=== PATIENT | male | born 1935 | race Caucasian/White ===

== ENCOUNTER 2018-12-21 13:50 | Inpatient (IN) | payer MEDICARE ==
[~2018-12-21] VITALS: Ht 167.6 cm; Wt 70.1 kg
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
[2018-12-21 14:34] LABS: BASO # 0.1 x10^3/uL (0.0-0.2); BASO % 1 % (0-3); EOS # 0.1 x10^3/uL (0.0-0.7); EOS % 1 % (0-3); HEMATOCRIT 37.8 % (39.0-53.0); HEMOGLOBIN 12.4 g/dL (13.0-17.5); LYMPH # 1.4 x10^3/uL (1.0-4.8); LYMPH % 12 % (24-48); MEAN CORPUSCULAR HEMOGLOBIN 34 pg (25-35); MEAN CORPUSCULAR HGB CONC 33 g/dL (31-37); MEAN CORPUSCULAR VOLUME 102 fL (79-100); MONO # 0.8 x10^3/uL (0.0-1.1); MONO % 7 % (0-9); NEUT # 9.1 x10^3uL (1.8-7.7); NEUT % 80 % (31-73); PLATELET COUNT 295 x10^3/uL (140-400); RED CELL DISTRIBUTION WIDTH 14.1 % (11.5-14.5); WHITE BLOOD COUNT 11.4 x10^3/uL (4.0-11.0)
[2018-12-21 14:37] LABS: AMPHETAMINE/METHAMPHETAMINE NEG (NEG); BARBITURATES NEG (NEG); BENZODIAZEPINES NEG (NEG); CANNABINOIDS NEG (NEG); COCAINE NEG (NEG); METHADONE NEG (NEG); OPIATES NEG (NEG); PHENCYCLIDINE NEG (NEG)
[2018-12-21 14:38] LABS: BACTERIA,URINE 0 /HPF (0-FEW); BILIRUBIN,URINE NEG (NEG); CLARITY,URINE CLEAR; COLOR,URINE YELLOW; GLUCOSE,URINE NEG (NEG); NITRITE,URINE NEG (NEG); RBC,URINE 0 /HPF (0-2); SQUAMOUS EPITHELIAL CELL,UR OCC /LPF; UROBILINOGEN,URINE 0.2 mg/dL (0.2 mg/dL); WBC,URINE 0 /HPF (0-4)
[2018-12-21 14:40] LABS: ACETAMIN < 2.0 mcg/mL (10-30); SALIC 0.4 mg/dL (2.8-20.0)
[2018-12-21 14:41] LABS: ETHANOL < 10 mg/dL (0-10)
[2018-12-21 14:43] LABS: ALBUMIN 2.7 g/dL (3.4-5.0); CALCIUM 8.3 mg/dL (8.5-10.1); CREATININE 1.3 mg/dL (0.7-1.3); DIRECT BILIRUBIN 0.1 mg/dL (0.0-0.2); GFR 52.7; POTASSIUM 3.7 mmol/L (3.5-5.1); TOTAL BILIRUBIN 0.3 mg/dL (0.2-1.0); TOTAL PROTEIN 5.8 g/dL (6.4-8.2)
--- NOTE | 2018-12-21 22:27 | PDOC ---
Exam Note: Arjun Note: Please also refer to the separate dictated note~for this date of service dictated separately. Discussed the patient with Nursing staff reviewed the chart.~Reviewed interim history and current functioning. Reviewed vital signs,~Labs/ Radiology~and current medications noted below. Continue current treatment with the changes noted in the dictated addendum note Assessment: Vital Signs/I&O: Vital Signs Date Time Temp Pulse Resp B/P (MAP) Pulse Ox O2 Delivery O2 Flow Rate FiO2 12/21/18 17:05 98.2 70 18 117/47 (70) 95 Room Air Labs: Laboratory Tests Test 12/21/18 14:12 12/21/18 14:15 White Blood Count 11.4 x10^3/uL (4.0-11.0) H Red Blood Count 3.70 x10^6/uL (4.30-5.70) L Hemoglobin 12.4 g/dL (13.0-17.5) L Hematocrit 37.8 % (39.0-53.0) L Mean Corpuscular Volume 102 fL (79-100) H Mean Corpuscular Hemoglobin 34 pg (25-35) Mean Corpuscular Hemoglobin Concent 33 g/dL (31-37) Red Cell Distribution Width 14.1 % (11.5-14.5) Platelet Count 295 x10^3/uL (140-400) Neutrophils (%) (Auto) 80 % (31-73) H Lymphocytes (%) (Auto) 12 % (24-48) L Monocytes (%) (Auto) 7 % (0-9) Eosinophils (%) (Auto) 1 % (0-3) Basophils (%) (Auto) 1 % (0-3) Neutrophils # (Auto) 9.1 x10^3uL (1.8-7.7) H Lymphocytes # (Auto) 1.4 x10^3/uL (1.0-4.8) Monocytes # (Auto) 0.8 x10^3/uL (0.0-1.1) Eosinophils # (Auto) 0.1 x10^3/uL (0.0-0.7) Basophils # (Auto) 0.1 x10^3/uL (0.0-0.2) Sodium Level 144 mmol/L (136-145) Potassium Level 3.7 mmol/L (3.5-5.1) Chloride Level 110 mmol/L (98-107) H Carbon Dioxide Level 26 mmol/L (21-32) Anion Gap 8 (6-14) Blood Urea Nitrogen 17 mg/dL (8-26) Creatinine 1.3 mg/dL (0.7-1.3) Estimated GFR (Cockcroft-Gault) 52.7 Glucose Level 164 mg/dL (70-99) H Calcium Level 8.3 mg/dL (8.5-10.1) L Magnesium Level 1.9 mg/dL (1.8-2.4) Total Bilirubin 0.3 mg/dL (0.2-1.0) Direct Bilirubin 0.1 mg/dL (0.0-0.2) Aspartate Amino Transferase (AST) 16 U/L (15-37) Alanine Aminotransferase (ALT) 22 U/L (16-63) Alkaline Phosphatase 66 U/L (46-116) Total Protein 5.8 g/dL (6.4-8.2) L Albumin 2.7 g/dL (3.4-5.0) L Salicylates Level 0.4 mg/dL (2.8-20.0) L Salicylate Last Dose Date Unk Salicylate Last Dose Time Unk Acetaminophen Level < 2.0 mcg/mL (10-30) L Acetaminophen Last Dose Date Unk Acetaminophen Last Dose Time Unk Ethyl Alcohol Level < 10 mg/dL (0-10) Urine Collection Type Unknown Urine Color Yellow Urine Clarity Clear Urine pH 6.0 Urine Specific [place] 1.015 Urine Protein Neg (NEG-TRACE) Urine Glucose (UA) Neg mg/dL (NEG) Urine Ketones (Stick) Neg mg/dL (NEG) Urine Blood Neg (NEG) Urine Nitrite Neg (NEG) Urine Bilirubin Neg (NEG) Urine Urobilinogen Dipstick 0.2 mg/dL (0.2 mg/dL) Urine Leukocyte Esterase Neg (NEG) Urine RBC 0 /HPF (0-2) Urine WBC 0 /HPF (0-4) Urine Squamous Epithelial Cells Occ /LPF Urine Bacteria 0 /HPF (0-FEW) Urine Opiates Screen Neg (NEG) Urine Methadone Screen Neg (NEG) Urine Barbiturates Neg (NEG) Urine Phencyclidine Screen Neg (NEG) Urine Amphetamine/Methamphetamine Neg (NEG) Urine Benzodiazepines Screen Neg (NEG) Urine Cocaine Screen Neg (NEG) Urine Cannabinoids Screen Neg (NEG) Urine Ethyl Alcohol Neg (NEG) Current Medications: I have reviewed the current psychotropics carefully including drug interactions. Risk benefit ratio favors no change other than as noted in my dictated progress note. 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
[2018-12-21 23:06] VITALS: BP 122/66
[2018-12-21] MEDS ORDERED: RAME8TAB19 PO (23:55)
[2018-12-21] MEDS ORDERED: FEXO180T16 PO (23:55)
[2018-12-21] MEDS ORDERED: ATOR40TA59 PO (23:55)
[2018-12-21] MEDS ORDERED: FINA5TAB4 PO (23:55)
[2018-12-21] MEDS ORDERED: DIGO250T PO (23:55)
[2018-12-21] MEDS ORDERED: POTA20TA4 PO (23:55)
[2018-12-21] MEDS ORDERED: APIX5TAB3 PO (23:55)
[2018-12-21] MEDS ORDERED: DILT180C29 PO (23:55)
[2018-12-21] MEDS ORDERED: FURO20TA3 PO (23:55)
[2018-12-22] MEDS ORDERED: MAGNESIUM HYDROXIDE 2,400 MG/30 ML ORAL.SUSP. PO PRN
[2018-12-22] MEDS ORDERED: RAMELTEON 8 MG TABLET. PO PRN
[2018-12-22] MEDS ORDERED: METHYL SALICYLATE/MENTHOL TOPICAL OINTMENT 29GM TUBE. TP PRN
[2018-12-22] MEDS ORDERED: MAG HYDROX/AL HYDROX/SIMETH 30 ML ORAL.SUSP PO PRN
[2018-12-22 06:30] VITALS: BP 142/67
[2018-12-22 06:57] LABS: BASO # 0.1 x10^3/uL (0.0-0.2); BASO % 1 % (0-3); EOS # 0.3 x10^3/uL (0.0-0.7); EOS % 3 % (0-3); HEMATOCRIT 40.2 % (39.0-53.0); HEMOGLOBIN 13.3 g/dL (13.0-17.5); LYMPH # 1.1 x10^3/uL (1.0-4.8); LYMPH % 12 % (24-48); MEAN CORPUSCULAR HEMOGLOBIN 34 pg (25-35); MEAN CORPUSCULAR HGB CONC 33 g/dL (31-37); MEAN CORPUSCULAR VOLUME 103 fL (79-100); MONO # 0.8 x10^3/uL (0.0-1.1); MONO % 9 % (0-9); NEUT # 6.7 x10^3uL (1.8-7.7); NEUT % 75 % (31-73); PLATELET COUNT 281 x10^3/uL (140-400); RED BLOOD COUNT 3.89 x10^6/uL (4.30-5.70); RED CELL DISTRIBUTION WIDTH 14.1 % (11.5-14.5); WHITE BLOOD COUNT 8.9 x10^3/uL (4.0-11.0)
[2018-12-22 07:04] LABS: ALBUMIN 2.8 g/dL (3.4-5.0); ALBUMIN/GLOBULIN RATIO 0.8 (1.0-1.7); ALK PHOS 62 U/L (46-116); ALT (SGPT) 20 U/L (16-63); ANION GAP 5 (6-14); AST (SGOT) 16 U/L (15-37); BLOOD UREA NITROGEN 14 mg/dL (8-26); BUN/CREATININE RATIO 13 (6-20); CALCIUM 8.8 mg/dL (8.5-10.1); CARBON DIOXIDE 31 mmol/L (21-32); CHLORIDE 107 mmol/L (98-107); CREATININE 1.1 mg/dL (0.7-1.3); DIG 0.7 ng/dL (0.9-2.0); GFR 63.9; GLUCOSE 111 mg/dL (70-99); POTASSIUM 3.8 mmol/L (3.5-5.1); SODIUM 143 mmol/L (136-145); TOTAL BILIRUBIN 0.6 mg/dL (0.2-1.0); TOTAL PROTEIN 6.1 g/dL (6.4-8.2)
[2018-12-22 08:31] LABS: % BANDS 2 % (0-9); % EOS 0 % (0-5); % LYMPHS 9 % (24-48); % MONOS 5 % (0-10); % SEGS 69 % (35-66); PLT ESTIMATE ADEQUATE (ADEQUATE)
[2018-12-22] MEDS: POTASSIUM CHLORIDE 20 MEQ TABLET.ER. PO SCH (10:05)
[2018-12-22] MEDS: FINASTERIDE 5 MG TABLET PO SCH (10:06)
[2018-12-22] MEDS: FUROSEMIDE 20 MG TABLET PO SCH (10:06)
[2018-12-22] MEDS: CETIRIZINE HCL 10 MG TABLET PO SCH ×2 (10:06→19:14)
[2018-12-22] MEDS: APIXABAN 5 MG TABLET. PO SCH ×2 (10:06→19:14)
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
[2018-12-22 16:16] VITALS: BP 129/63
[2018-12-22] MEDS: DIGOXIN 125 MCG TABLET PO SCH (18:00)
[2018-12-22 19:11] LABS: THYROXINE 7.1 ug/dL (4.5-12.0)
[2018-12-22] MEDS: ATORVASTATIN CALCIUM 20 MG TABLET PO SCH (20:36)
[2018-12-22] MEDS ORDERED: MIRTAZAPINE 7.5 MG TABLET. PO SCH (21:00)
--- NOTE | 2018-12-22 22:17 | PDOC ---
Exam Note: Arjun Note: Please also refer to the separate dictated note~for this date of service dictated separately.~Patient seen individually. Discussed the patient with Nursing staff reviewed the chart.~Reviewed interim history and current functioning. Reviewed vital signs,~Labs/ Radiology~and current medications noted below. Continue current treatment with the changes noted in the dictated addendum note Assessment: Vital Signs/I&O: Vital Signs Date Time Temp Pulse Resp B/P (MAP) Pulse Ox O2 Delivery O2 Flow Rate FiO2 12/22/18 18:00 63 129/63 12/22/18 16:16 98.6 20 96 12/21/18 17:05 Room Air I & O 12/21/18 12/21/18 12/22/18 14:59 22:59 06:59 Intake Total 120 ml Balance 120 ml Labs: Laboratory Tests Test 12/22/18 06:37 White Blood Count 8.9 x10^3/uL (4.0-11.0) Red Blood Count 3.89 x10^6/uL (4.30-5.70) L Hemoglobin 13.3 g/dL (13.0-17.5) Hematocrit 40.2 % (39.0-53.0) Mean Corpuscular Volume 103 fL (79-100) H Mean Corpuscular Hemoglobin 34 pg (25-35) Mean Corpuscular Hemoglobin Concent 33 g/dL (31-37) Red Cell Distribution Width 14.1 % (11.5-14.5) Platelet Count 281 x10^3/uL (140-400) Neutrophils (%) (Auto) 75 % (31-73) H Lymphocytes (%) (Auto) 12 % (24-48) L Monocytes (%) (Auto) 9 % (0-9) Eosinophils (%) (Auto) 3 % (0-3) Basophils (%) (Auto) 1 % (0-3) Neutrophils # (Auto) 6.7 x10^3uL (1.8-7.7) Lymphocytes # (Auto) 1.1 x10^3/uL (1.0-4.8) Monocytes # (Auto) 0.8 x10^3/uL (0.0-1.1) Eosinophils # (Auto) 0.3 x10^3/uL (0.0-0.7) Basophils # (Auto) 0.1 x10^3/uL (0.0-0.2) Segmented Neutrophils % 69 % (35-66) H Band Neutrophils % 2 % (0-9) Lymphocytes % 9 % (24-48) L Monocytes % 5 % (0-10) Eosinophils % 0 % (0-5) Platelet Estimate Adequate (ADEQUATE) Sodium Level 143 mmol/L (136-145) Potassium Level 3.8 mmol/L (3.5-5.1) Chloride Level 107 mmol/L (98-107) Carbon Dioxide Level 31 mmol/L (21-32) Anion Gap 5 (6-14) L Blood Urea Nitrogen 14 mg/dL (8-26) Creatinine 1.1 mg/dL (0.7-1.3) Estimated GFR (Cockcroft-Gault) 63.9 BUN/Creatinine Ratio 13 (6-20) Glucose Level 111 mg/dL (70-99) H Calcium Level 8.8 mg/dL (8.5-10.1) Magnesium Level 2.0 mg/dL (1.8-2.4) Iron Level 79 ug/dL (65-175) Total Iron Binding Capacity 237 ug/dL (250-450) L Iron Saturation 33 % (15-34) Total Bilirubin 0.6 mg/dL (0.2-1.0) Aspartate Amino Transferase (AST) 16 U/L (15-37) Alanine Aminotransferase (ALT) 20 U/L (16-63) Alkaline Phosphatase 62 U/L (46-116) Total Protein 6.1 g/dL (6.4-8.2) L Albumin 2.8 g/dL (3.4-5.0) L Albumin/Globulin Ratio 0.8 (1.0-1.7) L Triglycerides Level 52 mg/dL (0-150) Cholesterol Level 136 mg/dL (0-200) LDL Cholesterol, Calculated 68 mg/dL (0-100) VLDL Cholesterol, Calculated 10 mg/dL (0-40) Non-HDL Cholesterol Calculated 78 mg/dL (0-129) HDL Cholesterol 58 mg/dL (40-60) Cholesterol/HDL Ratio 2.0 Thyroid Stimulating Hormone (TSH) 4.118 uIU/mL (0.358-3.740) Thyroxine (T4) 7.1 ug/dL (4.5-12.0) Total Triiodothyronine (TT3) 76 ng/dL (71-180) Digoxin Level 0.7 ng/dL (0.9-2.0) L Digoxin Last Dose Date 12/21/18 Digoxin Last Dose Time 1800 Current Medications: Meds: Current Medications Medications (Trade) Dose Ordered Sig/Lorenzo Route PRN Reason Start Time Stop Time Status Last Admin Dose Admin Furosemide (Lasix) 20 mg DAILY PO 12/22/18 09:00 12/22/18 10:06 Potassium Chloride (Klor-Con) 20 meq DAILYWBKFT PO 12/22/18 08:00 12/22/18 10:05 Ramelteon (Rozerem) 8 mg PRN QHS PRN PO INSOMNIA 12/22/18 00:00 12/22/18 18:19 DC 12/22/18 01:38 Apixaban (Eliquis) 5 mg BID PO 12/22/18 09:00 12/22/18 19:14 Atorvastatin Calcium (Lipitor) 40 mg QHS PO 12/22/18 21:00 12/22/18 20:36 Diltiazem HCl (Cardizem 24hr Cd) 180 mg DAILY PO 12/22/18 09:00 12/22/18 10:06 Cetirizine HCl (ZyrTEC) 10 mg BID PO 12/22/18 09:00 12/22/18 19:14 Finasteride (Proscar) 5 mg DAILY PO 12/22/18 09:00 12/22/18 10:06 Mirtazapine (Remeron) 7.5 mg QHS PO 12/22/18 21:00 12/22/18 20:36 I have reviewed the current psychotropics carefully including drug interactions. Risk benefit ratio favors no change other than as noted in my dictated progress note. 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
--- NOTE | 2018-12-22 22:38 | CONS ---
DATE OF CONSULTATION: 12/22/2018 MEDICAL CONSULTATION ATTENDING PHYSICIAN: Dr. Corky Wilson REASON FOR CONSULTATION: We are asked to see the patient for medical evaluation. HISTORY OF PRESENT ILLNESS: The patient is a very pleasant 83-year-old gentleman who is from this area. He was recently sent down to a longterm in [place]. Family brought him back here to take care of him. He became very agitated, confused, personality change. He has a profound dementia with delusional behavior. He has been very aggressive, impulse control disorder and he was sent here through the ED. He denied any pains or palpitations. He is very confused and hard of hearing. PAST MEDICAL HISTORY: Significant for chronic atrial fibrillation. He is on apixaban long-term. He also has dementia and hypertension. He also has urinary retention and prostatism. CURRENT MEDICINES: Reviewed. ALLERGIES: He has no known drug allergies. He was scheduled to take Tylenol, Mylanta, Eliquis, Lipitor, Zyrtec, digoxin, Cardizem-CD, Proscar, Lasix, Zyprexa, potassium and Rozerem. There was a question whether he needs amiodarone and albuterol. I do not believe that these are necessary. His heart rate is well controlled. SOCIAL HISTORY: He had been a smoker in the past. FAMILY HISTORY: Unobtainable due to the patient's confusion. REVIEW OF SYSTEMS: Unobtainable due to the patient's lack of understanding. He is only oriented to person. PHYSICAL EXAMINATION: GENERAL: When I saw him, this is a pleasant, but very confused elderly gentleman. INITIAL VITAL SIGNS: Showed a blood pressure of 142/67 mmHg, pulse of 67 and regular. He was afebrile. HEENT: Head is without trauma. Pupils are reactive. Sclerae is nonicteric. Oropharynx is clear. NECK: Supple. No bruits identified. LUNGS: Otherwise clear. CARDIOVASCULAR: Showed regular heart tones. No obvious gallops. Peripheral pulses are palpable and full. ABDOMEN: Soft, scaphoid, nontender, no organomegaly. Bowel sounds are normoactive. EXTREMITIES: Showed trace edema. NEUROLOGIC FINDINGS: Focally intact. Speech is fluent. He is very hard of hearing. The patient is not aware of time and the place. He is very confused. LABORATORY DATA: Reviewed. Hemoglobin was maintained at 13.3 g/dL with white count of 8900. Chemistry panel showed normal sodium 143 mEq/L, potassium 3.8 mEq. Creatinine stable at 1.1 mg/dL, nonfasting blood sugar is 111 mg/dL. IMPRESSION: 1. This 83-year-old gentleman has profound Alzheimer dementia. 2. Personality changes with aggressive behavior and psychosis. 3. Component of paranoia. 4. Permanent atrial fibrillation. 5. Chronic anticoagulation. RECOMMENDATIONS: 1. I do not believe he needs his amiodarone or albuterol at this time. 2. Other home meds were reviewed. 3. We should gladly follow along during the course of the hospitalization. Thank you again for asking to see the patient for medical consultation and management. VANNA FERRARA MD DR: SUSAN/citlali JOB#: [id number] / [id number] KIKE Woo MD
[2018-12-22 23:11] LABS: HEMOGLOBIN A1C 5.8 % (4.8-5.6)
[2018-12-23 06:39] VITALS: BP 167/96
[2018-12-23] MEDS: FINASTERIDE 5 MG TABLET PO SCH (09:11)
[2018-12-23] MEDS: POTASSIUM CHLORIDE 20 MEQ TABLET.ER. PO SCH (09:12)
[2018-12-23] MEDS: APIXABAN 5 MG TABLET. PO SCH ×2 (09:12→21:00)
[2018-12-23] MEDS: FUROSEMIDE 20 MG TABLET PO SCH (09:12)
[2018-12-23] MEDS: CETIRIZINE HCL 10 MG TABLET PO SCH ×2 (09:12→21:00)
[2018-12-23] MEDS: LORazepam INTENSOL 2 MG/ML BOTTLE SL PRN (11:26)
[2018-12-23] MEDS ORDERED: HALOPERIDOL LACT 5 MG/ML VIAL. IM SCH (13:50)
[2018-12-23] MEDS: DIGOXIN 125 MCG TABLET PO SCH (18:16)
[2018-12-23] MEDS ORDERED: diphenhydrAMINE HCL 25 MG CAPSULE PO ONE (20:15)
[2018-12-23] MEDS: MIRTAZAPINE 15 MG TABLET PO SCH (21:00)
[2018-12-23] MEDS: risperiDONE 0.25 MG TABLET. PO SCH (21:00)
[2018-12-23] MEDS: ATORVASTATIN CALCIUM 20 MG TABLET PO SCH (21:00)
--- NOTE | 2018-12-23 22:20 | PDOC ---
Exam Note: Arjun Note: Please also refer to the separate dictated note~for this date of service dictated separately.~Patient seen individually. Discussed the patient with Nursing staff reviewed the chart.~Reviewed interim history and current functioning. Reviewed vital signs,~Labs/ Radiology~and current medications noted below. Continue current treatment with the changes noted in the dictated addendum note Assessment: Vital Signs/I&O: Vital Signs Date Time Temp Pulse Resp B/P (MAP) Pulse Ox O2 Delivery O2 Flow Rate FiO2 12/23/18 18:16 85 167/96 12/23/18 06:39 98.3 22 97 12/22/18 21:00 Room Air I & O 12/22/18 12/22/18 12/23/18 15:00 23:00 07:00 Intake Total 480 ml 240 ml 120 ml Balance 480 ml 240 ml 120 ml Current Medications: Meds: Current Medications Medications (Trade) Dose Ordered Sig/Lorenzo Route PRN Reason Start Time Stop Time Status Last Admin Dose Admin Lorazepam (Ativan Intensol) 0.5 mg PRN Q2HR PRN SL ANXIETY / AGITATION 12/23/18 11:30 12/23/18 11:26 Haloperidol Lactate (Haldol) 5 mg DAILY IM 12/23/18 13:50 12/23/18 14:01 Lorazepam (Ativan Inj) 0.5 mg DAILY IM 12/23/18 13:55 12/23/18 14:00 Diphenhydramine HCl (Benadryl) 25 mg 1X ONCE PO 12/23/18 20:15 12/23/18 20:16 DC 12/23/18 20:12 I have reviewed the current psychotropics carefully including drug interactions. Risk benefit ratio favors no change other than as noted in my dictated progress note. 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
[2018-12-23] MEDS: ACETAMINOPHEN 325 MG TABLET PO PRN (22:28)
--- NOTE | 2018-12-24 00:16 | PN ---
DATE: 12/22/2018 PSYCHIATRIC PROGRESS NOTE This is a late entry 12/22/2018, covers the elements not covered in my initial note. SUBJECTIVE: I met with the patient evening of 12/22/2018. The patient slept 3-1/2 hours previous night. The patient has been confused, quite hard of hearing, does wear his hearing aid, compliant with medications. He is on Rozerem 8 mg at bedtime p.r.n., does not seem to be helping and we will change to Remeron 7.5 mg p.o. at bedtime. REVIEW OF SYSTEMS: Hard of hearing. No CV, , pulmonary, eye system symptoms on review. Reliability is poor. MENTAL STATUS EXAM: The patient is oriented to himself. Insight, judgment, recent and remote memory, attention, concentration, fund of knowledge poor, consistent with his diagnosis. He is constantly moving, restless, anxious and distractable. LABORATORY DATA: Reviewed. IMPRESSION: Unchanged from initial note. PLAN: Change the Rozerem to Remeron. Continue rest of the psychotropics unchanged. MAN Lucina VELEZ MD DR: ZEUS/citlali JOB#: [id number] / [id number]
--- NOTE | 2018-12-24 00:32 | RAD ---
AP portable chest radiograph 12/23/2018 Clinical History: Wheezing with extensive bruising on body and chest tenderness. An AP portable digital radiograph of the chest was obtained. No previous studies are available for comparison. The cardiac silhouette is borderline enlarged. The thoracic aorta is tortuous. Atherosclerotic calcification thoracic aorta is seen. Mild elevation left hemidiaphragm is noted. No acute pulmonary infiltrate is noted. No pneumothorax or significant pleural effusion is seen. Degenerative changes are seen involving the thoracic spine and both shoulders. IMPRESSION: No acute abnormality is seen. Electronically signed by: Paul Schuster MD (12/24/2018 12:29 AM) [id number]
[2018-12-24 06:16] VITALS: BP 116/63
[2018-12-24] MEDS: FINASTERIDE 5 MG TABLET PO SCH (09:32)
[2018-12-24] MEDS: CETIRIZINE HCL 10 MG TABLET PO SCH ×2 (09:33→19:29)
[2018-12-24] MEDS: FUROSEMIDE 20 MG TABLET PO SCH (09:33)
[2018-12-24] MEDS: APIXABAN 5 MG TABLET. PO SCH ×2 (09:33→19:29)
[2018-12-24] MEDS: POTASSIUM CHLORIDE 20 MEQ TABLET.ER. PO SCH (09:33)
[2018-12-24] MEDS: SERTRALINE 25 MG TABLET. PO SCH (09:34)
[2018-12-24] MEDS: DIVALPROEX 125 MG CAP.SPRINK PO SCH ×2 (12:19→19:29)
[2018-12-24 16:22] VITALS: BP 129/72
[2018-12-24] MEDS: DIGOXIN 125 MCG TABLET PO SCH (18:27)
[2018-12-24] MEDS: risperiDONE 0.25 MG TABLET. PO SCH (19:29)
[2018-12-24] MEDS: MIRTAZAPINE 15 MG TABLET PO SCH (19:29)
[2018-12-24] MEDS: ATORVASTATIN CALCIUM 20 MG TABLET PO SCH (19:29)
--- NOTE | 2018-12-24 22:28 | PDOC ---
Exam Note: Arjun Note: Please also refer to the separate dictated note~for this date of service dictated separately.~Patient seen individually. Discussed the patient with Nursing staff reviewed the chart.~Reviewed interim history and current functioning. Reviewed vital signs,~Labs/ Radiology~and current medications noted below. Continue current treatment with the changes noted in the dictated addendum note Assessment: Vital Signs/I&O: Vital Signs Date Time Temp Pulse Resp B/P (MAP) Pulse Ox O2 Delivery O2 Flow Rate FiO2 12/24/18 18:27 84 129/72 12/24/18 16:22 98.6 20 97 Room Air I & O 12/23/18 12/23/18 12/24/18 15:00 23:00 07:00 Intake Total 240 ml 0 ml Balance 240 ml 0 ml Current Medications: Meds: Current Medications Medications (Trade) Dose Ordered Sig/Lorenzo Route PRN Reason Start Time Stop Time Status Last Admin Dose Admin Sertraline HCl (Zoloft) 25 mg DAILY PO 12/24/18 09:00 12/24/18 09:34 Divalproex Sodium (Depakote Sprinkles) 125 mg BID PO 12/24/18 12:00 12/24/18 19:29 I have reviewed the current psychotropics carefully including drug interactions. Risk benefit ratio favors no change other than as noted in my dictated progress note. 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
[2018-12-25 06:26] VITALS: BP 138/82
[2018-12-25] MEDS: DIVALPROEX 125 MG CAP.SPRINK PO SCH ×2 (07:53→19:26)
[2018-12-25] MEDS: CETIRIZINE HCL 10 MG TABLET PO SCH ×2 (07:53→19:26)
[2018-12-25] MEDS: FINASTERIDE 5 MG TABLET PO SCH (07:53)
[2018-12-25] MEDS: POTASSIUM CHLORIDE 20 MEQ TABLET.ER. PO SCH (07:54)
[2018-12-25] MEDS: APIXABAN 5 MG TABLET. PO SCH ×2 (07:54→19:26)
[2018-12-25] MEDS: SERTRALINE 25 MG TABLET. PO SCH (07:54)
[2018-12-25] MEDS: FUROSEMIDE 20 MG TABLET PO SCH (07:54)
[2018-12-25 16:28] VITALS: BP 146/54
[2018-12-25] MEDS: DIGOXIN 125 MCG TABLET PO SCH (18:03)
[2018-12-25] MEDS: risperiDONE 0.25 MG TABLET. PO SCH (19:26)
[2018-12-25] MEDS: MIRTAZAPINE 15 MG TABLET PO SCH (19:26)
[2018-12-25] MEDS: ATORVASTATIN CALCIUM 20 MG TABLET PO SCH (19:26)
--- NOTE | 2018-12-25 20:51 | PN ---
DATE: 12/23/2018 PSYCHIATRIC PROGRESS NOTE This is a late entry 12/23/2018, covers the elements not covered in my initial note. SUBJECTIVE: I met with the patient in the evening at length of 12/23/2018. I have had multiple emergent telephone calls from nursing staff all through the day on account of the patient's marked agitation, aggression, disruptive behavior, extremely volatile, lying himself on the floor, aggressive, banging on doors, totally unmanageable. He received Zyprexa at 2250, 0950, 1130 along with Ativan. None of this was effective and he was started on IM Haldol 5 mg along with Ativan 0.5 mg daily since oral psychotropics were ineffective, received first dosage at 1355. He was then lying himself on the floor, walking in the back, impulsive, disruptive, volatile and then gradually seemed to settle down. He did have a possible allergic reaction to Haldol, spiked a fever, was red in the face and received Benadryl. This seemed to subside and we will note Haldol as an allergy for him and continue IM Ativan instead. He has had multiple bruising as a consequence of all of his above aggression. The family has been informed about things in detail and what we are doing to help. REVIEW OF SYSTEMS: No CV, , pulmonary, eye, ENT system symptoms on review. Reliability is poor. MENTAL STATUS EXAM: Oriented to himself. Insight, judgment, recent and remote memory, attention, concentration, fund of knowledge poor, consistent with his diagnosis. IMPRESSION: Major neurocognitive disorder, Alzheimer, vascular with delusion, depression, behavioral disturbance; anxiety disorder, unspecified; impulse control disorder, unspecified. Rest unchanged. PLAN: Start Zoloft 25 mg a day for his mood and anxiety symptoms, change or Rozerem to Remeron 7.5 mg at bedtime, which has been relatively ineffective, will increase to 15 mg p.o. at bedtime, start Risperdal 0.25 mg at bedtime for his marked psychosis, Zoloft 25 mg a day. Continue Zyprexa p.r.n. Consider Depakote as a mood stabilizer, reassess psychotropics daily intensely. MAN M. AGUSTIN, MD DR: ZEUS/citlali JOB#: [id number] / [id number]
--- NOTE | 2018-12-25 22:25 | PDOC ---
Exam Note: Arjun Note: Please also refer to the separate dictated note~for this date of service dictated separately.~Patient seen individually. Discussed the patient with Nursing staff reviewed the chart.~Reviewed interim history and current functioning. Reviewed vital signs,~Labs/ Radiology~and current medications noted below. Continue current treatment with the changes noted in the dictated addendum note Assessment: Vital Signs/I&O: Vital Signs Date Time Temp Pulse Resp B/P (MAP) Pulse Ox O2 Delivery O2 Flow Rate FiO2 12/25/18 18:03 91 146/54 12/25/18 16:28 97.9 20 98 12/25/18 06:26 Room Air I & O 12/24/18 12/24/18 12/25/18 14:59 22:59 06:59 Intake Total 480 ml 240 ml Balance 480 ml 240 ml Current Medications: I have reviewed the current psychotropics carefully including drug interactions. Risk benefit ratio favors no change other than as noted in my dictated progress note. 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
[2018-12-26] MEDS: LORazepam INTENSOL 2 MG/ML BOTTLE SL PRN (00:25)
--- NOTE | 2018-12-26 01:31 | PN ---
DATE: 12/24/2018 PSYCHIATRIC PROGRESS NOTE This late entry 12/24/2018 covers elements not covered in my initial note. SUBJECTIVE: I met with the patient evening of 12/24/2018. The patient was staffed at a treatment team meeting with the entire team in the morning. He slept 5-1/4 hours previous night. He has had a much better day on 12/24/2018 as compared to the earlier day on 12/23/2018. On 12/23/2018, he was extremely agitated, aggressive, combative. 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 Appetite is fair. 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 REVIEW OF SYSTEMS: No CV, , pulmonary, eye, ENT system symptoms on review. Hard of hearing, impaired ambulation, in a wheelchair. MENTAL STATUS EXAM: Oriented to himself. Insight, judgment, recent and remote memory, attention, concentration, fund of knowledge poor, consistent with his diagnosis. IMPRESSION: Major neurocognitive disorder, Alzheimer, vascular with delusion, depression, behavioral disturbance; anxiety disorder, unspecified; impulse control disorder, unspecified. Rest unchanged including hard of hearing. LABORATORY DATA: Reviewed. PLAN: Start Depakote Sprinkles 125 mg twice a day. Check CBC, CMP, valproic acid level in 3 days. HALDOL IS NOTED AN ALLERGY. Maintain Zoloft 25 mg a day, Risperdal 0.25 mg at bedtime, Remeron 15 mg at bedtime. Make further adjustments as clinically indicated. MAN Lucina VELEZ MD DR: ZEUS/citlali JOB#: [id number] / [id number]
[2018-12-26 06:19] VITALS: BP 158/83
[2018-12-26] MEDS: FINASTERIDE 5 MG TABLET PO SCH (08:39)
[2018-12-26] MEDS: CETIRIZINE HCL 10 MG TABLET PO SCH ×2 (08:39→20:17)
[2018-12-26] MEDS: DIVALPROEX 125 MG CAP.SPRINK PO SCH ×2 (08:39→20:17)
[2018-12-26] MEDS: FUROSEMIDE 20 MG TABLET PO SCH (08:39)
[2018-12-26] MEDS: POTASSIUM CHLORIDE 20 MEQ TABLET.ER. PO SCH (08:39)
[2018-12-26] MEDS: SERTRALINE 25 MG TABLET. PO SCH (08:40)
[2018-12-26] MEDS: APIXABAN 5 MG TABLET. PO SCH ×2 (08:40→20:17)
[2018-12-26 15:59] VITALS: BP 157/85
[2018-12-26] MEDS: DIGOXIN 125 MCG TABLET PO SCH (17:46)
[2018-12-26] MEDS: risperiDONE 0.25 MG TABLET. PO SCH (20:17)
[2018-12-26] MEDS: ATORVASTATIN CALCIUM 20 MG TABLET PO SCH (20:17)
[2018-12-26] MEDS: MIRTAZAPINE 15 MG TABLET PO SCH (20:17)
--- NOTE | 2018-12-26 23:08 | PDOC ---
Exam Note: Arjun Note: Please also refer to the separate dictated note~for this date of service dictated separately.~Patient seen individually. Discussed the patient with Nursing staff reviewed the chart.~Reviewed interim history and current functioning. Reviewed vital signs,~Labs/ Radiology~and current medications noted below. Continue current treatment with the changes noted in the dictated addendum note Assessment: Vital Signs/I&O: Vital Signs Date Time Temp Pulse Resp B/P (MAP) Pulse Ox O2 Delivery O2 Flow Rate FiO2 12/26/18 17:46 71 157/85 12/26/18 15:59 97.8 20 96 12/25/18 06:26 Room Air I & O 12/25/18 12/25/18 12/26/18 15:00 23:00 07:00 Intake Total 480 ml 360 ml Balance 480 ml 360 ml Current Medications: I have reviewed the current psychotropics carefully including drug interactions. Risk benefit ratio favors no change other than as noted in my dictated progress note. 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
[2018-12-27 06:21] VITALS: BP 167/90
[2018-12-27 08:04] LABS: BASO % 1 % (0-3); EOS # 0.2 x10^3/uL (0.0-0.7); EOS % 2 % (0-3); HEMATOCRIT 42.2 % (39.0-53.0); HEMOGLOBIN 13.8 g/dL (13.0-17.5); LYMPH # 1.2 x10^3/uL (1.0-4.8); LYMPH % 16 % (24-48); MEAN CORPUSCULAR HEMOGLOBIN 34 pg (25-35); MEAN CORPUSCULAR HGB CONC 33 g/dL (31-37); MEAN CORPUSCULAR VOLUME 103 fL (79-100); MONO # 0.7 x10^3/uL (0.0-1.1); MONO % 9 % (0-9); NEUT # 5.5 x10^3uL (1.8-7.7); NEUT % 72 % (31-73); PLATELET COUNT 285 x10^3/uL (140-400); RED CELL DISTRIBUTION WIDTH 13.9 % (11.5-14.5); WHITE BLOOD COUNT 7.6 x10^3/uL (4.0-11.0)
[2018-12-27 08:10] LABS: ALBUMIN 2.9 g/dL (3.4-5.0); ALBUMIN/GLOBULIN RATIO 0.8 (1.0-1.7); ALK PHOS 62 U/L (46-116); ALT (SGPT) 25 U/L (16-63); AST (SGOT) 21 U/L (15-37); BLOOD UREA NITROGEN 15 mg/dL (8-26); BUN/CREATININE RATIO 14 (6-20); CALCIUM 8.9 mg/dL (8.5-10.1); CREATININE 1.1 mg/dL (0.7-1.3); GFR 63.9; GLUCOSE 91 mg/dL (70-99); TOTAL BILIRUBIN 0.6 mg/dL (0.2-1.0); TOTAL PROTEIN 6.4 g/dL (6.4-8.2)
[2018-12-27 08:11] LABS: ANION GAP 6 (6-14); CARBON DIOXIDE 29 mmol/L (21-32); CHLORIDE 107 mmol/L (98-107); POTASSIUM 3.8 mmol/L (3.5-5.1); SODIUM 142 mmol/L (136-145); VAL ACID 13 mcg/mL (50-100)
[2018-12-27] MEDS: FINASTERIDE 5 MG TABLET PO SCH (08:22)
[2018-12-27] MEDS: APIXABAN 5 MG TABLET. PO SCH ×2 (08:23→20:56)
[2018-12-27] MEDS: DIVALPROEX 125 MG CAP.SPRINK PO SCH ×2 (08:23→20:56)
[2018-12-27] MEDS: POTASSIUM CHLORIDE 20 MEQ TABLET.ER. PO SCH (08:23)
[2018-12-27] MEDS: CETIRIZINE HCL 10 MG TABLET PO SCH ×2 (08:23→20:56)
[2018-12-27] MEDS: FUROSEMIDE 20 MG TABLET PO SCH (08:23)
[2018-12-27] MEDS: SERTRALINE 50 MG TABLET. PO SCH (08:25)
[2018-12-27 16:21] VITALS: BP 156/89
[2018-12-27] MEDS: DIGOXIN 125 MCG TABLET PO SCH ×2 (18:21→20:54)
[2018-12-27] MEDS: ATORVASTATIN CALCIUM 20 MG TABLET PO SCH (20:54)
[2018-12-27] MEDS: risperiDONE 0.25 MG TABLET. PO SCH (20:54)
[2018-12-27] MEDS: MIRTAZAPINE 15 MG TABLET PO SCH (20:54)
--- NOTE | 2018-12-27 22:15 | PDOC ---
Exam Note: Arjun Note: Please also refer to the separate dictated note~for this date of service dictated separately.~Patient seen individually. Discussed the patient with Nursing staff reviewed the chart.~Reviewed interim history and current functioning. Reviewed vital signs,~Labs/ Radiology~and current medications noted below. Continue current treatment with the changes noted in the dictated addendum note Assessment: Vital Signs/I&O: Vital Signs Date Time Temp Pulse Resp B/P (MAP) Pulse Ox O2 Delivery O2 Flow Rate FiO2 12/27/18 20:54 79 156/89 12/27/18 16:21 97.2 20 98 Room Air I & O 12/26/18 12/26/18 12/27/18 15:00 23:00 07:00 Intake Total 380 ml 240 ml 120 ml Balance 380 ml 240 ml 120 ml Labs: Laboratory Tests Test 12/27/18 07:40 White Blood Count 7.6 x10^3/uL (4.0-11.0) Red Blood Count 4.10 x10^6/uL (4.30-5.70) L Hemoglobin 13.8 g/dL (13.0-17.5) Hematocrit 42.2 % (39.0-53.0) Mean Corpuscular Volume 103 fL (79-100) H Mean Corpuscular Hemoglobin 34 pg (25-35) Mean Corpuscular Hemoglobin Concent 33 g/dL (31-37) Red Cell Distribution Width 13.9 % (11.5-14.5) Platelet Count 285 x10^3/uL (140-400) Neutrophils (%) (Auto) 72 % (31-73) Lymphocytes (%) (Auto) 16 % (24-48) L Monocytes (%) (Auto) 9 % (0-9) Eosinophils (%) (Auto) 2 % (0-3) Basophils (%) (Auto) 1 % (0-3) Neutrophils # (Auto) 5.5 x10^3uL (1.8-7.7) Lymphocytes # (Auto) 1.2 x10^3/uL (1.0-4.8) Monocytes # (Auto) 0.7 x10^3/uL (0.0-1.1) Eosinophils # (Auto) 0.2 x10^3/uL (0.0-0.7) Basophils # (Auto) 0.0 x10^3/uL (0.0-0.2) Sodium Level 142 mmol/L (136-145) Potassium Level 3.8 mmol/L (3.5-5.1) Chloride Level 107 mmol/L (98-107) Carbon Dioxide Level 29 mmol/L (21-32) Anion Gap 6 (6-14) Blood Urea Nitrogen 15 mg/dL (8-26) Creatinine 1.1 mg/dL (0.7-1.3) Estimated GFR (Cockcroft-Gault) 63.9 BUN/Creatinine Ratio 14 (6-20) Glucose Level 91 mg/dL (70-99) Calcium Level 8.9 mg/dL (8.5-10.1) Total Bilirubin 0.6 mg/dL (0.2-1.0) Aspartate Amino Transferase (AST) 21 U/L (15-37) Alanine Aminotransferase (ALT) 25 U/L (16-63) Alkaline Phosphatase 62 U/L (46-116) Ammonia 16 mcmol/L (11-34) Total Protein 6.4 g/dL (6.4-8.2) Albumin 2.9 g/dL (3.4-5.0) L Albumin/Globulin Ratio 0.8 (1.0-1.7) L Valproic Acid Level 13 mcg/mL (50-100) L Valproic Acid Last Dose Date 12/26/2018 Valproic Acid Last Dose Time 2100 Current Medications: Meds: Current Medications Medications (Trade) Dose Ordered Sig/Lorenzo Route PRN Reason Start Time Stop Time Status Last Admin Dose Admin Sertraline HCl (Zoloft) 50 mg DAILY PO 12/27/18 09:00 12/27/18 08:25 I have reviewed the current psychotropics carefully including drug interactions. Risk benefit ratio favors no change other than as noted in my dictated progress note. 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
--- NOTE | 2018-12-28 05:27 | PN ---
DATE: 12/25/2018 PSYCHIATRIC PROGRESS NOTE This late entry 12/25/2018 covers elements not covered in my initial note. SUBJECTIVE: I met with the patient in the evening of 12/25/2018. The patient slept 7 hours previous night. His IM Haldol has been stopped due to allergy and he is on scheduled Ativan IM daily. He is overall less agitated. REVIEW OF SYSTEMS: No CV, , pulmonary, eye, ENT system symptoms on review. Reliability poor. MENTAL STATUS EXAM: Oriented to himself. Insight, judgment, recent and remote memory, attention, concentration, fund of knowledge poor, consistent with his diagnosis mentioned in my initial note. PLAN: No change from initial note. EMILE VELEZ MD DR: ZEUS/citlali JOB#: [id number] / [id number]
[2018-12-28 05:55] VITALS: BP 138/86
[2018-12-28] MEDS ORDERED: BUDE10.2 IH (06:09)
[2018-12-28] MEDS ORDERED: LEVALBUTER0.63 MG/3 IH (06:09)
[2018-12-28 06:48] LABS: BGAS PH 7.42 (7.35-7.46)
[2018-12-28] MEDS: ALBUTEROL SULFATE 2.5 MG/3 ML NEBU. NEB SCH ×4 (06:52→21:26)
[2018-12-28] MEDS: BUDESONIDE 0.5 MG/2 ML NEBU NEB SCH (06:53)
--- NOTE | 2018-12-28 06:58 | RAD ---
CHEST AP ONLY Clinical Indication: Wheezing, increased respirations. Open-mouth breathing. Comparison: AP chest December 23, 2018. Findings: Atherosclerotic aortic arch. Cardiac size is upper limits of normal. Stable mild elevation left hemidiaphragm. Lungs are clear. There is no pneumothorax. No pleural effusion is appreciated. No acute bone abnormality. Degenerative arthropathy of the shoulders. IMPRESSION: No acute cardiopulmonary process. Electronically signed by: Zach Woods MD (12/28/2018 6:55 AM) [facility]
[2018-12-28] MEDS: SERTRALINE 50 MG TABLET. PO SCH (08:22)
[2018-12-28] MEDS: CETIRIZINE HCL 10 MG TABLET PO SCH ×2 (08:22→19:54)
[2018-12-28] MEDS: POTASSIUM CHLORIDE 20 MEQ TABLET.ER. PO SCH (08:22)
[2018-12-28] MEDS: FINASTERIDE 5 MG TABLET PO SCH (08:22)
[2018-12-28] MEDS: FUROSEMIDE 20 MG TABLET PO SCH (08:22)
[2018-12-28] MEDS: APIXABAN 5 MG TABLET. PO SCH ×2 (08:23→19:54)
[2018-12-28] MEDS: DIVALPROEX 125 MG CAP.SPRINK PO SCH ×2 (08:25→19:55)
[2018-12-28] MEDS ORDERED: NON FORMULARY ITEM (Budesonide/Formoterol Fumarate (Symbicort 160-4.5 Mcg Inhaler) 2 PUFF) IH SCH (09:00)
[2018-12-28] MEDS ORDERED: LEVALBUTEROL HCL 0.63 MG IH SCH (12:00)
[2018-12-28 15:47] VITALS: BP 134/73
--- NOTE | 2018-12-28 16:16 | EKG ---
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
[2018-12-28] MEDS: ATORVASTATIN CALCIUM 20 MG TABLET PO SCH (19:54)
[2018-12-28] MEDS: MIRTAZAPINE 15 MG TABLET PO SCH (19:54)
[2018-12-28] MEDS: risperiDONE 0.25 MG TABLET. PO SCH (19:56)
--- NOTE | 2018-12-28 21:12 | PDOC ---
Exam Note: Arjun Note: Please also refer to the separate dictated note~for this date of service dictated separately.~Patient seen individually. Discussed the patient with Nursing staff reviewed the chart.~Reviewed interim history and current functioning. Reviewed vital signs,~Labs/ Radiology~and current medications noted below. Continue current treatment with the changes noted in the dictated addendum note Assessment: Vital Signs/I&O: Vital Signs Date Time Temp Pulse Resp B/P (MAP) Pulse Ox O2 Delivery O2 Flow Rate FiO2 12/28/18 16:43 95 Room Air 12/28/18 15:47 97.8 86 18 134/73 (93) I & O 12/27/18 12/27/18 12/28/18 15:00 23:00 07:00 Intake Total 600 ml 240 ml Balance 600 ml 240 ml Labs: Laboratory Tests Test 12/28/18 06:30 Blood pH 7.42 (7.35-7.46) Blood Gas PCO2 43 mmHg (35-46) Blood Gas PO2 64 mmHg (71-100) L Blood Gas HCO3 28 mmol/L (21-28) Arterial Bld O2 Saturation (Calc) 93 % (92-99) FiO2 21 % Current Medications: Meds: Current Medications Medications (Trade) Dose Ordered Sig/Lorenzo Route PRN Reason Start Time Stop Time Status Last Admin Dose Admin Divalproex Sodium (Depakote Sprinkles) 250 mg BID PO 12/28/18 09:00 12/28/18 19:55 Albuterol Sulfate (Ventolin) 2.5 mg RTQID NEB 12/28/18 06:30 12/28/18 16:43 Budesonide (Pulmicort) 0.5 mg RTBID NEB 12/28/18 06:30 12/28/18 06:53 I have reviewed the current psychotropics carefully including drug interactions. Risk benefit ratio favors no change other than as noted in my dictated progress note. 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
--- NOTE | 2018-12-28 23:23 | PN ---
DATE: 12/26/2018 PSYCHIATRIC PROGRESS NOTE This is a late entry 12/26/2018, covers the elements not covered in my initial note. SUBJECTIVE: I met with the patient in the evening of 12/26/2018. The patient slept 4 hours previous night. He has not been aggressive, remains confused, much more redirectable. REVIEW OF SYSTEMS: No CV, , pulmonary, eye, ENT system symptoms on review. Reliability is poor. MENTAL STATUS EXAM: Oriented to himself. Insight, judgment, recent and remote memory, attention, concentration, fund of knowledge poor, consistent with his diagnosis mentioned in my initial note. PLAN: No change from initial note. Increase Zoloft from 25 mg a day to 50 mg a day. Continue rest of the psychotropics. Start trazodone 50 mg at bedtime p.r.n., october repeat x 1 for insomnia. MAN Lucina VELEZ MD DR: ZEUS/citlali JOB#: [id number] / [id number]
--- NOTE | 2018-12-28 23:23 | PN ---
DATE: 12/27/2018 PSYCHIATRIC PROGRESS NOTE This late entry 12/27/2018 covers elements not covered in my initial note. SUBJECTIVE: I met with the patient in the evening of 12/27/2018. The patient slept 7-1/4 hours previous night. He remains confused, but not aggressive, much better than previously. Significant improvement. Valproic acid level is 13. Takes his medications whole, has been cooperative, has had some wheezing. We will defer to Dr. Sethi. We will discontinue the scheduled IM Ativan daily since behaviorally he is much better. REVIEW OF SYSTEMS: No CV, , pulmonary, eye, ENT system symptoms on review. Reliability poor. MENTAL STATUS EXAM: Oriented to himself. Insight, judgment, recent and remote memory, attention, concentration, fund of knowledge poor, consistent with his diagnosis mentioned in my initial note. PLAN: No change from initial note and we will start Depakote 250 mg b.i.d. Check CBC, CMP, valproic acid level in 3 days. Rest unchanged for now. EMILE VELEZ MD DR: ZEUS/citlali JOB#: [id number] / [id number]
[2018-12-29 05:40] VITALS: BP 102/58
[2018-12-29] MEDS: BUDESONIDE 0.5 MG/2 ML NEBU NEB SCH ×3 (05:53→21:22)
[2018-12-29] MEDS: ALBUTEROL SULFATE 2.5 MG/3 ML NEBU. NEB SCH ×4 (05:53→21:22)
[2018-12-29] MEDS: APIXABAN 5 MG TABLET. PO SCH ×2 (09:06→20:09)
[2018-12-29] MEDS: FINASTERIDE 5 MG TABLET PO SCH (09:06)
[2018-12-29] MEDS: CETIRIZINE HCL 10 MG TABLET PO SCH ×2 (09:06→20:09)
[2018-12-29] MEDS: SERTRALINE 50 MG TABLET. PO SCH (09:06)
[2018-12-29] MEDS: FUROSEMIDE 20 MG TABLET PO SCH (09:06)
[2018-12-29] MEDS: DIVALPROEX 125 MG CAP.SPRINK PO SCH ×2 (09:06→20:09)
[2018-12-29] MEDS: POTASSIUM CHLORIDE 20 MEQ TABLET.ER. PO SCH (09:07)
[2018-12-29 16:21] VITALS: BP 154/84
[2018-12-29] MEDS: DIGOXIN 125 MCG TABLET PO SCH (17:06)
[2018-12-29] MEDS: MIRTAZAPINE 15 MG TABLET PO SCH (20:09)
[2018-12-29] MEDS: risperiDONE 0.25 MG TABLET. PO SCH (20:09)
[2018-12-29] MEDS: ATORVASTATIN CALCIUM 20 MG TABLET PO SCH (20:09)
--- NOTE | 2018-12-29 22:25 | PDOC ---
Exam Note: Arjun Note: Please also refer to the separate dictated note~for this date of service dictated separately.~Patient seen individually. Discussed the patient with Nursing staff reviewed the chart.~Reviewed interim history and current functioning. Reviewed vital signs,~Labs/ Radiology~and current medications noted below. Continue current treatment with the changes noted in the dictated addendum note Assessment: Vital Signs/I&O: Vital Signs Date Time Temp Pulse Resp B/P (MAP) Pulse Ox O2 Delivery O2 Flow Rate FiO2 12/29/18 21:23 96 Room Air 12/29/18 17:06 74 154/84 12/29/18 16:21 98.0 16 I & O 12/28/18 12/28/18 12/29/18 14:59 22:59 06:59 Intake Total 960 ml 120 ml Balance 960 ml 120 ml Current Medications: I have reviewed the current psychotropics carefully including drug interactions. Risk benefit ratio favors no change other than as noted in my dictated progress note. 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
--- NOTE | 2018-12-29 22:52 | PN ---
DATE: 12/28/2018 PSYCHIATRIC PROGRESS NOTE This late entry of 12/28/2018 covers the elements not covered in my initial note. SUBJECTIVE: I met with the patient in the evening of 12/28/2018. The patient slept 3-3/4 hours previous night. O2 sats dropped to 93%. He is restarted on breathing treatment. He still has skin tears on both arms from the agitation, aggression that happened a few days back. Earlier in the day, he tried to scale the patio fence, but redirected. He had to be in the West hallway to remove him from external stimuli. REVIEW OF SYSTEMS: No CV, , pulmonary, eye, ENT system symptoms on review. Reliability poor. He is somewhat paranoid. MENTAL STATUS EXAM: Oriented to himself. Insight, judgment, recent and remote memory, attention, concentration, fund of knowledge poor, consistent with his diagnosis mentioned in my initial note. PLAN: No change from initial note. MAN Lucina VELEZ MD DR: ZEUS/citlali JOB#: [id number] / [id number]
[2018-12-30] MEDS: BUDESONIDE 0.5 MG/2 ML NEBU NEB SCH ×2 (05:37→20:42)
[2018-12-30] MEDS: ALBUTEROL SULFATE 2.5 MG/3 ML NEBU. NEB SCH ×4 (05:37→20:42)
[2018-12-30 05:56] VITALS: BP 137/66
[2018-12-30] MEDS: SERTRALINE 50 MG TABLET. PO SCH (08:28)
[2018-12-30] MEDS: CETIRIZINE HCL 10 MG TABLET PO SCH ×2 (08:29→20:09)
[2018-12-30] MEDS: DIVALPROEX 125 MG CAP.SPRINK PO SCH ×2 (08:29→20:09)
[2018-12-30] MEDS: FINASTERIDE 5 MG TABLET PO SCH (08:30)
[2018-12-30] MEDS: APIXABAN 5 MG TABLET. PO SCH ×2 (08:30→20:09)
[2018-12-30] MEDS: POTASSIUM CHLORIDE 20 MEQ TABLET.ER. PO SCH (08:30)
[2018-12-30] MEDS: FUROSEMIDE 20 MG TABLET PO SCH (08:30)
[2018-12-30 17:09] VITALS: BP 166/62
[2018-12-30] MEDS: DIGOXIN 125 MCG TABLET PO SCH (17:40)
[2018-12-30] MEDS: MIRTAZAPINE 15 MG TABLET PO SCH (20:09)
[2018-12-30] MEDS: risperiDONE 0.25 MG TABLET. PO SCH (20:09)
[2018-12-30] MEDS: ATORVASTATIN CALCIUM 20 MG TABLET PO SCH (20:09)
[2018-12-30] MEDS: traZODone 50 MG TABLET. PO PRN (22:20)
--- NOTE | 2018-12-30 22:32 | PDOC ---
Exam Note: Arjun Note: Please also refer to the separate dictated note~for this date of service dictated separately.~Patient seen individually. Discussed the patient with Nursing staff reviewed the chart.~Reviewed interim history and current functioning. Reviewed vital signs,~Labs/ Radiology~and current medications noted below. Continue current treatment with the changes noted in the dictated addendum note Assessment: Vital Signs/I&O: Vital Signs Date Time Temp Pulse Resp B/P (MAP) Pulse Ox O2 Delivery O2 Flow Rate FiO2 12/30/18 20:45 98 Room Air 12/30/18 17:40 84 166/62 12/30/18 17:09 98.5 18 I & O 12/29/18 12/29/18 12/30/18 14:59 22:59 06:59 Intake Total 600 ml 240 ml 120 ml Balance 600 ml 240 ml 120 ml Current Medications: I have reviewed the current psychotropics carefully including drug interactions. Risk benefit ratio favors no change other than as noted in my dictated progress note. 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
--- NOTE | 2018-12-31 01:10 | PN ---
DATE: 12/29/2018 PSYCHIATRIC PROGRESS NOTE This late entry, 12/29, covers elements not covered in my initial note. SUBJECTIVE: I met with the patient the evening of 12/29. The patient slept 5-3/4 hours previous night. He is compliant with medications and breathing treatment. He defecated on the floor in his room oblivious of what he did. REVIEW OF SYSTEMS: No CV, , pulmonary, eye, ENT system symptoms on review. He is hard of hearing. Reliability poor. MENTAL STATUS EXAM: Oriented to himself. Insight, judgment, recent and remote memory, attention, concentration, fund of knowledge poor, consistent with his diagnosis mentioned in my initial note. PLAN: No change from initial note. Check CBC, CMP, valproic acid level morning of 12/30 and then adjust the dosage further. MAN Lucina VELEZ MD DR: ZEUS/citlali JOB#: [id number] / [id number]
[2018-12-31] MEDS: BUDESONIDE 0.5 MG/2 ML NEBU NEB SCH ×2 (05:41→20:10)
[2018-12-31] MEDS: ALBUTEROL SULFATE 2.5 MG/3 ML NEBU. NEB SCH ×4 (05:41→20:10)
[2018-12-31 07:27] LABS: BASO # 0.1 x10^3/uL (0.0-0.2); BASO % 1 % (0-3); EOS # 0.2 x10^3/uL (0.0-0.7); EOS % 3 % (0-3); HEMATOCRIT 41.2 % (39.0-53.0); HEMOGLOBIN 13.7 g/dL (13.0-17.5); LYMPH # 1.4 x10^3/uL (1.0-4.8); LYMPH % 20 % (24-48); MEAN CORPUSCULAR HEMOGLOBIN 34 pg (25-35); MEAN CORPUSCULAR HGB CONC 33 g/dL (31-37); MEAN CORPUSCULAR VOLUME 103 fL (79-100); MONO # 0.8 x10^3/uL (0.0-1.1); MONO % 12 % (0-9); NEUT # 4.6 x10^3uL (1.8-7.7); NEUT % 65 % (31-73); PLATELET COUNT 283 x10^3/uL (140-400); RED BLOOD COUNT 4.01 x10^6/uL (4.30-5.70); RED CELL DISTRIBUTION WIDTH 13.9 % (11.5-14.5); WHITE BLOOD COUNT 7.1 x10^3/uL (4.0-11.0)
[2018-12-31 07:45] LABS: ALBUMIN 3.1 g/dL (3.4-5.0); ALBUMIN/GLOBULIN RATIO 0.9 (1.0-1.7); ALK PHOS 62 U/L (46-116); ALT (SGPT) 29 U/L (16-63); ANION GAP 6 (6-14); AST (SGOT) 24 U/L (15-37); BLOOD UREA NITROGEN 16 mg/dL (8-26); BUN/CREATININE RATIO 15 (6-20); CARBON DIOXIDE 31 mmol/L (21-32); CHLORIDE 106 mmol/L (98-107); CREATININE 1.1 mg/dL (0.7-1.3); GFR 63.9; GLUCOSE 85 mg/dL (70-99); POTASSIUM 3.8 mmol/L (3.5-5.1); SODIUM 143 mmol/L (136-145); TOTAL BILIRUBIN 0.5 mg/dL (0.2-1.0); TOTAL PROTEIN 6.7 g/dL (6.4-8.2)
[2018-12-31 07:47] LABS: VAL ACID 23 mcg/mL (50-100)
[2018-12-31] MEDS: FINASTERIDE 5 MG TABLET PO SCH (07:59)
[2018-12-31] MEDS: SERTRALINE 50 MG TABLET. PO SCH (07:59)
[2018-12-31] MEDS: POTASSIUM CHLORIDE 20 MEQ TABLET.ER. PO SCH (08:00)
[2018-12-31] MEDS: DIVALPROEX 125 MG CAP.SPRINK PO SCH ×2 (08:00→19:23)
[2018-12-31] MEDS: CETIRIZINE HCL 10 MG TABLET PO SCH ×2 (08:00→19:27)
[2018-12-31] MEDS: APIXABAN 5 MG TABLET. PO SCH ×2 (08:01→19:23)
[2018-12-31] MEDS: FUROSEMIDE 20 MG TABLET PO SCH (08:01)
[2018-12-31 16:56] VITALS: BP 156/88
[2018-12-31] MEDS: DIGOXIN 125 MCG TABLET PO SCH (17:02)
[2018-12-31] MEDS: risperiDONE 0.25 MG TABLET. PO SCH (19:24)
[2018-12-31] MEDS: MIRTAZAPINE 15 MG TABLET PO SCH (19:24)
[2018-12-31] MEDS: ATORVASTATIN CALCIUM 20 MG TABLET PO SCH (19:24)
--- NOTE | 2018-12-31 22:47 | PDOC ---
Exam Note: Arjun Note: Please also refer to the separate dictated note~for this date of service dictated separately.~Patient seen individually. Discussed the patient with Nursing staff reviewed the chart.~Reviewed interim history and current functioning. Reviewed vital signs,~Labs/ Radiology~and current medications noted below. Continue current treatment with the changes noted in the dictated addendum note Assessment: Vital Signs/I&O: Vital Signs Date Time Temp Pulse Resp B/P (MAP) Pulse Ox O2 Delivery O2 Flow Rate FiO2 12/31/18 20:14 97 Room Air 12/31/18 17:02 82 156/88 12/31/18 16:56 97.5 20 I & O 12/30/18 12/30/18 12/31/18 14:59 22:59 06:59 Intake Total 360 ml 360 ml Balance 360 ml 360 ml Labs: Laboratory Tests Test 12/31/18 07:09 White Blood Count 7.1 x10^3/uL (4.0-11.0) Red Blood Count 4.01 x10^6/uL (4.30-5.70) L Hemoglobin 13.7 g/dL (13.0-17.5) Hematocrit 41.2 % (39.0-53.0) Mean Corpuscular Volume 103 fL (79-100) H Mean Corpuscular Hemoglobin 34 pg (25-35) Mean Corpuscular Hemoglobin Concent 33 g/dL (31-37) Red Cell Distribution Width 13.9 % (11.5-14.5) Platelet Count 283 x10^3/uL (140-400) Neutrophils (%) (Auto) 65 % (31-73) Lymphocytes (%) (Auto) 20 % (24-48) L Monocytes (%) (Auto) 12 % (0-9) H Eosinophils (%) (Auto) 3 % (0-3) Basophils (%) (Auto) 1 % (0-3) Neutrophils # (Auto) 4.6 x10^3uL (1.8-7.7) Lymphocytes # (Auto) 1.4 x10^3/uL (1.0-4.8) Monocytes # (Auto) 0.8 x10^3/uL (0.0-1.1) Eosinophils # (Auto) 0.2 x10^3/uL (0.0-0.7) Basophils # (Auto) 0.1 x10^3/uL (0.0-0.2) Sodium Level 143 mmol/L (136-145) Potassium Level 3.8 mmol/L (3.5-5.1) Chloride Level 106 mmol/L (98-107) Carbon Dioxide Level 31 mmol/L (21-32) Anion Gap 6 (6-14) Blood Urea Nitrogen 16 mg/dL (8-26) Creatinine 1.1 mg/dL (0.7-1.3) Estimated GFR (Cockcroft-Gault) 63.9 BUN/Creatinine Ratio 15 (6-20) Glucose Level 85 mg/dL (70-99) Calcium Level 9.0 mg/dL (8.5-10.1) Total Bilirubin 0.5 mg/dL (0.2-1.0) Aspartate Amino Transferase (AST) 24 U/L (15-37) Alanine Aminotransferase (ALT) 29 U/L (16-63) Alkaline Phosphatase 62 U/L (46-116) Total Protein 6.7 g/dL (6.4-8.2) Albumin 3.1 g/dL (3.4-5.0) L Albumin/Globulin Ratio 0.9 (1.0-1.7) L Valproic Acid Level 23 mcg/mL (50-100) L Valproic Acid Last Dose Date 12/30/18 Valproic Acid Last Dose Time 2100 Current Medications: I have reviewed the current psychotropics carefully including drug interactions. Risk benefit ratio favors no change other than as noted in my dictated progress note. 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
[2019-01-01] MEDS: ALBUTEROL SULFATE 2.5 MG/3 ML NEBU. NEB SCH ×4 (05:51→20:03)
[2019-01-01] MEDS: BUDESONIDE 0.5 MG/2 ML NEBU NEB SCH ×2 (05:51→20:03)
[2019-01-01 06:37] VITALS: BP 155/81
[2019-01-01] MEDS: FINASTERIDE 5 MG TABLET PO SCH (08:05)
[2019-01-01] MEDS: DIVALPROEX 125 MG CAP.SPRINK PO SCH ×2 (08:06→20:20)
[2019-01-01] MEDS: APIXABAN 5 MG TABLET. PO SCH ×2 (08:06→20:20)
[2019-01-01] MEDS: FUROSEMIDE 20 MG TABLET PO SCH (08:06)
[2019-01-01] MEDS: POTASSIUM CHLORIDE 20 MEQ TABLET.ER. PO SCH (08:06)
[2019-01-01] MEDS: CETIRIZINE HCL 10 MG TABLET PO SCH ×2 (08:06→20:20)
[2019-01-01] MEDS: SERTRALINE 50 MG TABLET. PO SCH (08:09)
--- NOTE | 2019-01-01 13:07 | PN ---
DATE: 12/30/2018 This late entry, 12/30, covers elements not covered in my initial note. SUBJECTIVE: I met with the patient in the evening. The patient slept 6-1/4 hours previous night. He was agitated in the morning, talking about aliens on making statement "get me out of here. I'm not a nut." He did receive Zyprexa in the morning. He does seem to have expressive aphasia, which makes his confusion even worse. We will be checking labs in morning of 12/31. REVIEW OF SYSTEMS: No CV, , pulmonary, eye, ENT system symptoms on review. Reliability poor. MENTAL STATUS EXAM: Oriented to himself. Insight, judgment, recent and remote memory, attention, concentration, fund of knowledge poor, consistent with his diagnosis mentioned in my initial note. PLAN: No change from initial note. MAN Lucina VELEZ MD DR: ZEUS/citlali JOB#: [id number] / [id number]
[2019-01-01 16:03] VITALS: BP 111/73
[2019-01-01] MEDS: DIGOXIN 125 MCG TABLET PO SCH (18:00)
[2019-01-01] MEDS: ATORVASTATIN CALCIUM 20 MG TABLET PO SCH (20:20)
[2019-01-01] MEDS: risperiDONE 0.25 MG TABLET. PO SCH (20:20)
[2019-01-01] MEDS: MIRTAZAPINE 15 MG TABLET PO SCH (20:20)
--- NOTE | 2019-01-01 21:56 | PN ---
DATE: 12/31/2018 PSYCHIATRIC PROGRESS NOTE This is a late entry 12/31/2018 covers elements not covered in my initial note. SUBJECTIVE: I met with the patient in the evening of 12/31/2018 and staffed at a treatment team meeting in the afternoon. Sleeping 5-6 hours average. Appetite 50-75%. Family has decided to have him and his return back to [place], [place]. He takes his medications whole at times, crushed with food at other times. When his came to visit him, he was somewhat upset at her and whenever he is upset, his speech becomes quite clear. REVIEW OF SYSTEMS: No CV, , pulmonary, eye, ENT system symptoms on review. Reliability is poor. MENTAL STATUS EXAM: Oriented to himself. Insight, judgment, recent and remote memory, attention, concentration, fund of knowledge poor, consistent with his diagnosis mentioned in my initial note. PLAN: Increase Zoloft to 75 mg a day. Continue rest of the psychotropics unchanged for now. MAN Lucina VELEZ MD DR: ZEUS/citlali JOB#: [id number] / [id number]
--- NOTE | 2019-01-01 22:27 | PDOC ---
Exam Note: Arjun Note: Please also refer to the separate dictated note~for this date of service dictated separately.~Patient seen individually. Discussed the patient with Nursing staff reviewed the chart.~Reviewed interim history and current functioning. Reviewed vital signs,~Labs/ Radiology~and current medications noted below. Continue current treatment with the changes noted in the dictated addendum note Assessment: Vital Signs/I&O: Vital Signs Date Time Temp Pulse Resp B/P (MAP) Pulse Ox O2 Delivery O2 Flow Rate FiO2 01/01/19 20:06 97 Room Air 01/01/19 18:00 67 111/73 01/01/19 16:03 97.7 18 I & O 12/31/18 12/31/18 01/01/19 15:00 23:00 07:00 Intake Total 480 ml 240 ml 240 ml Balance 480 ml 240 ml 240 ml Current Medications: Meds: Current Medications Medications (Trade) Dose Ordered Sig/Lorenzo Route PRN Reason Start Time Stop Time Status Last Admin Dose Admin Sertraline HCl (Zoloft) 75 mg DAILY PO 01/01/19 09:00 01/01/19 08:09 I have reviewed the current psychotropics carefully including drug interactions. Risk benefit ratio favors no change other than as noted in my dictated progress note. 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
[2019-01-02 05:39] VITALS: BP 158/80
[2019-01-02] MEDS: ALBUTEROL SULFATE 2.5 MG/3 ML NEBU. NEB SCH ×4 (05:43→20:55)
[2019-01-02] MEDS: SERTRALINE 50 MG TABLET. PO SCH (07:50)
[2019-01-02] MEDS: FINASTERIDE 5 MG TABLET PO SCH (07:50)
[2019-01-02] MEDS: DIVALPROEX 125 MG CAP.SPRINK PO SCH ×2 (07:50→19:31)
[2019-01-02] MEDS: POTASSIUM CHLORIDE 20 MEQ TABLET.ER. PO SCH (07:52)
[2019-01-02] MEDS: CETIRIZINE HCL 10 MG TABLET PO SCH ×2 (07:52→19:31)
[2019-01-02] MEDS: FUROSEMIDE 20 MG TABLET PO SCH (07:53)
[2019-01-02] MEDS: APIXABAN 5 MG TABLET. PO SCH ×2 (07:53→19:31)
[2019-01-02] MEDS: BUDESONIDE 0.5 MG/2 ML NEBU NEB SCH ×2 (10:30→20:55)
[2019-01-02 15:39] VITALS: BP 113/64
[2019-01-02] MEDS: DIGOXIN 125 MCG TABLET PO SCH (16:42)
[2019-01-02] MEDS: ATORVASTATIN CALCIUM 20 MG TABLET PO SCH (19:31)
[2019-01-02] MEDS: risperiDONE 0.25 MG TABLET. PO SCH (19:31)
[2019-01-02] MEDS: MIRTAZAPINE 15 MG TABLET PO SCH (19:31)
--- NOTE | 2019-01-02 23:14 | PDOC ---
Exam Note: Arjun Note: Please also refer to the separate dictated note~for this date of service dictated separately.~Patient seen individually. Discussed the patient with Nursing staff reviewed the chart.~Reviewed interim history and current functioning. Reviewed vital signs,~Labs/ Radiology~and current medications noted below. Continue current treatment with the changes noted in the dictated addendum note Assessment: Vital Signs/I&O: Vital Signs Date Time Temp Pulse Resp B/P (MAP) Pulse Ox O2 Delivery O2 Flow Rate FiO2 01/02/19 20:59 97 Room Air 01/02/19 16:42 70 113/64 01/02/19 15:39 98.6 18 I & O 01/01/19 01/01/19 01/02/19 15:00 23:00 07:00 Intake Total 600 ml 240 ml 240 ml Balance 600 ml 240 ml 240 ml Current Medications: I have reviewed the current psychotropics carefully including drug interactions. Risk benefit ratio favors no change other than as noted in my dictated progress note. 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
[2019-01-03] MEDS: ALBUTEROL SULFATE 2.5 MG/3 ML NEBU. NEB SCH ×4 (05:36→20:00)
[2019-01-03 06:31] VITALS: BP 152/70
[2019-01-03] MEDS: DIVALPROEX 125 MG CAP.SPRINK PO SCH ×2 (08:03→21:34)
[2019-01-03] MEDS: FINASTERIDE 5 MG TABLET PO SCH (08:03)
[2019-01-03] MEDS: POTASSIUM CHLORIDE 20 MEQ TABLET.ER. PO SCH (08:03)
[2019-01-03] MEDS: CETIRIZINE HCL 10 MG TABLET PO SCH ×2 (08:04→21:35)
[2019-01-03] MEDS: APIXABAN 5 MG TABLET. PO SCH ×2 (08:04→21:35)
[2019-01-03] MEDS: SERTRALINE 50 MG TABLET. PO SCH (08:04)
[2019-01-03] MEDS: FUROSEMIDE 20 MG TABLET PO SCH (08:05)
[2019-01-03 10:00] LABS: VAL ACID 20 mcg/mL (50-100)
[2019-01-03] MEDS: BUDESONIDE 0.5 MG/2 ML NEBU NEB SCH ×2 (10:21→20:00)
[2019-01-03 16:28] VITALS: BP 149/77
[2019-01-03] MEDS: DIGOXIN 125 MCG TABLET PO SCH (19:28)
[2019-01-03] MEDS: ATORVASTATIN CALCIUM 20 MG TABLET PO SCH (21:34)
[2019-01-03] MEDS: MIRTAZAPINE 15 MG TABLET PO SCH (21:35)
[2019-01-03] MEDS: risperiDONE 0.25 MG TABLET. PO SCH (21:35)
--- NOTE | 2019-01-03 21:55 | PDOC ---
Exam Note: Arjun Note: Please also refer to the separate dictated note~for this date of service dictated separately.~Patient seen individually. Discussed the patient with Nursing staff reviewed the chart.~Reviewed interim history and current functioning. Reviewed vital signs,~Labs/ Radiology~and current medications noted below. Continue current treatment with the changes noted in the dictated addendum note Assessment: Vital Signs/I&O: Vital Signs Date Time Temp Pulse Resp B/P (MAP) Pulse Ox O2 Delivery O2 Flow Rate FiO2 01/03/19 19:28 85 149/77 01/03/19 16:28 98.3 18 96 01/03/19 16:16 Room Air I & O 01/02/19 01/02/19 01/03/19 15:00 23:00 07:00 Intake Total 480 ml 240 ml 120 ml Balance 480 ml 240 ml 120 ml Labs: Laboratory Tests Test 01/03/19 09:11 Valproic Acid Level 20 mcg/mL (50-100) L Valproic Acid Last Dose Date 01/02/19 Valproic Acid Last Dose Time 2100 Current Medications: I have reviewed the current psychotropics carefully including drug interactions. Risk benefit ratio favors no change other than as noted in my dictated progress note. 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
--- NOTE | 2019-01-03 23:01 | PN ---
DATE: 01/01/2019 PSYCHIATRIC PROGRESS NOTE This is a late entry 01/01/2019, covers the elements not covered in my initial note. SUBJECTIVE: I met with the patient in the evening. The patient slept 8 hours previous night. He remains confused, trying to barricade himself during the fire drill. He pulled on the toilet somewhat oblivious of what he is doing. Has a blank stare. We are going to check a valproic acid level in 2 days since we increased the Depakote, last level was 23, subtherapeutic on the . REVIEW OF SYSTEMS: No CV, , pulmonary, eye, ENT system symptoms on review. Reliability is poor. MENTAL STATUS EXAM: Oriented to himself. Insight, judgment, recent and remote memory, attention, concentration, fund of knowledge poor, consistent with his diagnosis mentioned in my initial note. PLAN: No change from initial note other than above. EMILE VELEZ MD DR: ZEUS/citlali JOB#: [id number] / [id number]
--- NOTE | 2019-01-03 23:01 | PN ---
DATE: 01/02/2019 This is late entry on 01/02/2019. Covers elements not covered in my initial note. SUBJECTIVE: I met the patient in the evening. The patient slept 7-1/2 hours previous night. He tends to pocket his medications. Several pills have been found around his bed and in his room. Staff are crushing his meds his meds now for compliance. He gets his meds now in applesauce wandering at night. REVIEW OF SYSTEMS: No CV, , pulmonary, eye, ENT system symptoms on review. Reliability poor. MENTAL STATUS EXAM: Oriented to himself. Insight, judgment, recent and remote memory, attention, concentration, fund of knowledge poor, consistent with his diagnosis mentioned in my initial note. PLAN: No change from initial note. MAN Lucina VELEZ MD DR: ZEUS/citlali JOB#: [id number] / [id number]
[2019-01-04] MEDS: ALBUTEROL SULFATE 2.5 MG/3 ML NEBU. NEB SCH ×4 (06:20→21:23)
[2019-01-04] MEDS: BUDESONIDE 0.5 MG/2 ML NEBU NEB SCH ×2 (06:20→21:23)
[2019-01-04 06:58] VITALS: BP 167/85
[2019-01-04] MEDS: APIXABAN 5 MG TABLET. PO SCH ×2 (07:59→19:40)
[2019-01-04] MEDS: FINASTERIDE 5 MG TABLET PO SCH (07:59)
[2019-01-04] MEDS: FUROSEMIDE 20 MG TABLET PO SCH (07:59)
[2019-01-04] MEDS: CETIRIZINE HCL 10 MG TABLET PO SCH ×2 (08:00→19:40)
[2019-01-04] MEDS: POTASSIUM CHLORIDE 20 MEQ TABLET.ER. PO SCH (08:00)
[2019-01-04] MEDS: DIVALPROEX 125 MG CAP.SPRINK PO SCH ×2 (08:01→19:40)
[2019-01-04] MEDS: SERTRALINE 50 MG TABLET. PO SCH (08:01)
[2019-01-04] MEDS: LORazepam INTENSOL 2 MG/ML BOTTLE SL PRN (08:22)
[2019-01-04 16:29] VITALS: BP 121/58
[2019-01-04] MEDS: DIGOXIN 125 MCG TABLET PO SCH (18:00)
[2019-01-04] MEDS: MIRTAZAPINE 15 MG TABLET PO SCH (19:40)
[2019-01-04] MEDS: ATORVASTATIN CALCIUM 20 MG TABLET PO SCH (19:40)
[2019-01-04] MEDS ORDERED: risperiDONE 0.5 MG TABLET. PO SCH (21:00)
[2019-01-04] MEDS: traZODone 50 MG TABLET. PO PRN (21:44)
--- NOTE | 2019-01-04 22:38 | PDOC ---
Exam Note: Arjun Note: Please also refer to the separate dictated note~for this date of service dictated separately.~Patient seen individually. Discussed the patient with Nursing staff reviewed the chart.~Reviewed interim history and current functioning. Reviewed vital signs,~Labs/ Radiology~and current medications noted below. Continue current treatment with the changes noted in the dictated addendum note Assessment: Vital Signs/I&O: Vital Signs Date Time Temp Pulse Resp B/P (MAP) Pulse Ox O2 Delivery O2 Flow Rate FiO2 01/04/19 21:24 94 Room Air 01/04/19 16:29 98.2 56 16 121/58 (79) I & O 01/03/19 01/03/19 01/04/19 14:59 22:59 06:59 Intake Total 480 ml 240 ml 0 ml Balance 480 ml 240 ml 0 ml Current Medications: Meds: Current Medications Medications (Trade) Dose Ordered Sig/Lorenzo Route PRN Reason Start Time Stop Time Status Last Admin Dose Admin Lorazepam (Ativan Inj) 0.5 mg DAILY IM 01/04/19 09:00 01/04/19 09:01 Risperidone (RisperDAL) 0.5 mg HS PO 01/04/19 21:00 01/04/19 19:41 I have reviewed the current psychotropics carefully including drug interactions. Risk benefit ratio favors no change other than as noted in my dictated progress note. 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
[2019-01-05] MEDS: ALBUTEROL SULFATE 2.5 MG/3 ML NEBU. NEB SCH ×4 (05:45→20:20)
[2019-01-05] MEDS: BUDESONIDE 0.5 MG/2 ML NEBU NEB SCH ×2 (05:45→20:19)
[2019-01-05 06:07] VITALS: BP 137/83
[2019-01-05 08:28] LABS: VAL ACID 23 mcg/mL (50-100)
[2019-01-05] MEDS: CETIRIZINE HCL 10 MG TABLET PO SCH ×2 (08:30→19:22)
[2019-01-05] MEDS: SERTRALINE 50 MG TABLET. PO SCH (08:31)
[2019-01-05] MEDS: DIVALPROEX 125 MG CAP.SPRINK PO SCH ×2 (08:31→19:21)
[2019-01-05] MEDS: POTASSIUM CHLORIDE 20 MEQ TABLET.ER. PO SCH (08:31)
[2019-01-05] MEDS: APIXABAN 5 MG TABLET. PO SCH ×2 (08:32→19:21)
[2019-01-05] MEDS: FUROSEMIDE 20 MG TABLET PO SCH (08:32)
[2019-01-05] MEDS: FINASTERIDE 5 MG TABLET PO SCH (08:33)
[2019-01-05 16:27] VITALS: BP 120/68
[2019-01-05] MEDS: DIGOXIN 125 MCG TABLET PO SCH (17:30)
[2019-01-05] MEDS: MIRTAZAPINE 15 MG TABLET PO SCH (19:22)
[2019-01-05] MEDS: ATORVASTATIN CALCIUM 20 MG TABLET PO SCH (19:48)
[2019-01-05] MEDS: risperiDONE 0.5 MG TABLET. PO SCH (19:48)
--- NOTE | 2019-01-05 22:46 | PDOC ---
Exam Note: Arjun Note: Please also refer to the separate dictated note~for this date of service dictated separately.~Patient seen individually. Discussed the patient with Nursing staff reviewed the chart.~Reviewed interim history and current functioning. Reviewed vital signs,~Labs/ Radiology~and current medications noted below. Continue current treatment with the changes noted in the dictated addendum note Assessment: Vital Signs/I&O: Vital Signs Date Time Temp Pulse Resp B/P (MAP) Pulse Ox O2 Delivery O2 Flow Rate FiO2 01/05/19 20:28 98 Room Air 01/05/19 17:30 82 120/68 01/05/19 16:27 97.6 18 I & O 01/04/19 01/04/19 01/05/19 14:59 22:59 06:59 Intake Total 440 ml 340 ml Balance 440 ml 340 ml Labs: Laboratory Tests Test 01/05/19 07:45 Valproic Acid Level 23 mcg/mL (50-100) L Valproic Acid Last Dose Date 01/04/2019 Valproic Acid Last Dose Time 2100 Current Medications: Meds: Current Medications Medications (Trade) Dose Ordered Sig/Lorenzo Route PRN Reason Start Time Stop Time Status Last Admin Dose Admin Risperidone (RisperDAL) 0.75 mg HS PO 01/05/19 21:00 01/05/19 19:48 I have reviewed the current psychotropics carefully including drug interactions. Risk benefit ratio favors no change other than as noted in my dictated progress note. 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
--- NOTE | 2019-01-05 22:56 | PN ---
DATE: 01/04/2019 PSYCHIATRIC PROGRESS NOTE This late entry, 01/04, covers elements not covered in my initial note. SUBJECTIVE: I met with the patient in the evening. The patient slept 8 hours previous night. He has been angry, labile in his mood, targeting male nursing staff, quite agitated, back and forth to the nursing station. REVIEW OF SYSTEMS: No CV, , pulmonary, eye, ENT system symptoms on review. Reliability poor. MENTAL STATUS EXAM: Oriented to himself. Insight, judgment, recent and remote memory, attention, concentration, fund of knowledge poor, consistent with his diagnosis. He has significant fluent, expressive aphasia, which increases his agitation since he could not be understood. LABORATORY DATA: Reviewed. IMPRESSION: Unchanged from initial note. PLAN: Increase Risperdal to 0.5 mg a day. Continue rest of the psychotropics unchanged. Check valproic acid level on the ; adjust further at that time. MAN Lucina VELEZ MD DR: ZEUS/citlali JOB#: [id number] / [id number]
--- NOTE | 2019-01-06 02:39 | PN ---
DATE: 01/03/2019 This late entry of 01/03/2019 covers elements not covered in my initial note. SUBJECTIVE: I met with the patient in the evening. The patient slept 4-1/4 hours previous night. He remains confused, seems to have fluent expressive aphasia, wandering, but redirectable, spitting out his medications into the toilet. Valproic acid level is 20, subtherapeutic, possibly due to noncompliance. We will repeat it on 01/05/2019 and then adjust the Depakote thereafter. REVIEW OF SYSTEMS: No CV, , pulmonary, eye, ENT system symptoms on review. Reliability poor. MENTAL STATUS EXAM: Oriented to himself. Insight, judgment, recent and remote memory, attention, concentration, fund of knowledge poor, consistent with his diagnosis, mentioned in my initial note. PLAN: No change from initial note. MAN Lucina VELEZ MD DR: ZEUS/citlali JOB#: [id number] / [id number]
[2019-01-06] MEDS: ALBUTEROL SULFATE 2.5 MG/3 ML NEBU. NEB SCH ×4 (05:04→19:52)
[2019-01-06 06:00] VITALS: BP 156/77
[2019-01-06] MEDS: FINASTERIDE 5 MG TABLET PO SCH (07:21)
[2019-01-06] MEDS: DIVALPROEX 125 MG CAP.SPRINK PO SCH ×2 (07:21→19:16)
[2019-01-06] MEDS: SERTRALINE 50 MG TABLET. PO SCH (07:22)
[2019-01-06] MEDS: APIXABAN 5 MG TABLET. PO SCH ×2 (07:22→19:14)
[2019-01-06] MEDS: CETIRIZINE HCL 10 MG TABLET PO SCH ×2 (07:26→19:15)
[2019-01-06] MEDS: FUROSEMIDE 20 MG TABLET PO SCH (07:27)
[2019-01-06] MEDS: POTASSIUM CHLORIDE 20 MEQ TABLET.ER. PO SCH (07:28)
[2019-01-06] MEDS: BUDESONIDE 0.5 MG/2 ML NEBU NEB SCH ×2 (09:39→19:54)
[2019-01-06 16:23] VITALS: BP 158/72
[2019-01-06] MEDS: DIGOXIN 125 MCG TABLET PO SCH (16:49)
[2019-01-06] MEDS: ATORVASTATIN CALCIUM 20 MG TABLET PO SCH (19:14)
[2019-01-06] MEDS: MIRTAZAPINE 15 MG TABLET PO SCH (19:14)
[2019-01-06] MEDS: risperiDONE 0.5 MG TABLET. PO SCH (19:15)
--- NOTE | 2019-01-06 22:19 | PDOC ---
Exam Note: Arjun Note: Please also refer to the separate dictated note~for this date of service dictated separately.~Patient seen individually. Discussed the patient with Nursing staff reviewed the chart.~Reviewed interim history and current functioning. Reviewed vital signs,~Labs/ Radiology~and current medications noted below. Continue current treatment with the changes noted in the dictated addendum note Assessment: Vital Signs/I&O: Vital Signs Date Time Temp Pulse Resp B/P (MAP) Pulse Ox O2 Delivery O2 Flow Rate FiO2 01/06/19 19:57 98 Room Air 01/06/19 16:49 70 158/72 01/06/19 16:23 98.0 16 I & O 01/05/19 01/05/19 01/06/19 15:00 23:00 07:00 Intake Total 1200 ml 240 ml 100 ml Balance 1200 ml 240 ml 100 ml Current Medications: Meds: Current Medications Medications (Trade) Dose Ordered Sig/Lorenzo Route PRN Reason Start Time Stop Time Status Last Admin Dose Admin Divalproex Sodium (Depakote Sprinkles) 375 mg BID PO 01/06/19 21:00 01/06/19 19:16 I have reviewed the current psychotropics carefully including drug interactions. Risk benefit ratio favors no change other than as noted in my dictated progress note. 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
--- NOTE | 2019-01-07 01:56 | PN ---
DATE: 01/05/2019 PSYCHIATRIC PROGRESS NOTE This late entry of 01/05/2019 covers elements not covered in my initial note. SUBJECTIVE: I met with the patient in the evening. The patient slept 7-1/2 hours previous night. He has done better during the day, confused, was agitated in the morning. REVIEW OF SYSTEMS: No CV, , pulmonary, eye, ENT system symptoms on review. Reliability poor. MENTAL STATUS EXAM: Oriented to himself. Insight, judgment, recent and remote memory, attention, concentration, fund of knowledge poor, consistent with his diagnosis mentioned in my initial note. PLAN: No change from initial note, but we will increase the Risperdal from 0.5 mg at bedtime to 0.75 mg p.o. at bedtime. Rest unchanged. MAN Lucina VELEZ MD DR: ZEUS/citlali JOB#: [id number] / [id number]
[2019-01-07] MEDS: ALBUTEROL SULFATE 2.5 MG/3 ML NEBU. NEB SCH ×4 (05:06→20:46)
[2019-01-07] MEDS: BUDESONIDE 0.5 MG/2 ML NEBU NEB SCH ×2 (05:06→20:46)
[2019-01-07 05:12] VITALS: BP 171/90
[2019-01-07] MEDS: DIVALPROEX 125 MG CAP.SPRINK PO SCH ×2 (10:33→19:58)
[2019-01-07] MEDS: POTASSIUM CHLORIDE 20 MEQ TABLET.ER. PO SCH (10:34)
[2019-01-07] MEDS: CETIRIZINE HCL 10 MG TABLET PO SCH ×2 (10:34→19:58)
[2019-01-07] MEDS: FINASTERIDE 5 MG TABLET PO SCH (10:34)
[2019-01-07] MEDS: FUROSEMIDE 20 MG TABLET PO SCH (10:34)
[2019-01-07] MEDS: APIXABAN 5 MG TABLET. PO SCH ×2 (10:34→19:58)
[2019-01-07] MEDS: SERTRALINE 50 MG TABLET. PO SCH (10:35)
[2019-01-07 16:24] VITALS: BP 154/76
[2019-01-07] MEDS: DIGOXIN 125 MCG TABLET PO SCH (18:16)
[2019-01-07] MEDS: ATORVASTATIN CALCIUM 20 MG TABLET PO SCH (19:56)
[2019-01-07] MEDS: risperiDONE 0.5 MG TABLET. PO SCH (19:58)
[2019-01-07] MEDS: MIRTAZAPINE 15 MG TABLET PO SCH (19:58)
--- NOTE | 2019-01-07 22:23 | PDOC ---
Exam Note: Arjun Note: Please also refer to the separate dictated note~for this date of service dictated separately.~Patient seen individually. Discussed the patient with Nursing staff reviewed the chart.~Reviewed interim history and current functioning. Reviewed vital signs,~Labs/ Radiology~and current medications noted below. Continue current treatment with the changes noted in the dictated addendum note Assessment: Vital Signs/I&O: Vital Signs Date Time Temp Pulse Resp B/P (MAP) Pulse Ox O2 Delivery O2 Flow Rate FiO2 01/07/19 20:48 96 Room Air 01/07/19 18:16 72 154/76 01/07/19 16:24 97.5 18 I & O 01/06/19 01/06/19 01/07/19 14:59 22:59 06:59 Intake Total 480 ml 120 ml 120 ml Balance 480 ml 120 ml 120 ml Current Medications: I have reviewed the current psychotropics carefully including drug interactions. Risk benefit ratio favors no change other than as noted in my dictated progress note. 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
[2019-01-08 05:55] VITALS: BP 147/95
[2019-01-08] MEDS: ALBUTEROL SULFATE 2.5 MG/3 ML NEBU. NEB SCH ×4 (06:37→20:36)
[2019-01-08] MEDS: FINASTERIDE 5 MG TABLET PO SCH (08:38)
[2019-01-08] MEDS: SERTRALINE 50 MG TABLET. PO SCH (08:39)
[2019-01-08] MEDS: APIXABAN 5 MG TABLET. PO SCH ×2 (08:39→20:01)
[2019-01-08] MEDS: FUROSEMIDE 20 MG TABLET PO SCH (08:39)
[2019-01-08] MEDS: POTASSIUM CHLORIDE 20 MEQ TABLET.ER. PO SCH (08:39)
[2019-01-08] MEDS: DIVALPROEX 125 MG CAP.SPRINK PO SCH ×2 (08:39→20:03)
[2019-01-08] MEDS: CETIRIZINE HCL 10 MG TABLET PO SCH ×2 (08:44→20:01)
[2019-01-08] MEDS: BUDESONIDE 0.5 MG/2 ML NEBU NEB SCH ×2 (10:12→20:36)
[2019-01-08 15:37] VITALS: BP 148/78
[2019-01-08] MEDS: DIGOXIN 125 MCG TABLET PO SCH (17:24)
[2019-01-08] MEDS: risperiDONE 0.5 MG TABLET. PO SCH (20:01)
[2019-01-08] MEDS: ATORVASTATIN CALCIUM 20 MG TABLET PO SCH (20:01)
[2019-01-08] MEDS: MIRTAZAPINE 15 MG TABLET PO SCH (20:02)
--- NOTE | 2019-01-08 22:37 | PDOC ---
Exam Note: Arjun Note: Please also refer to the separate dictated note~for this date of service dictated separately.~Patient seen individually. Discussed the patient with Nursing staff reviewed the chart.~Reviewed interim history and current functioning. Reviewed vital signs,~Labs/ Radiology~and current medications noted below. Continue current treatment with the changes noted in the dictated addendum note Assessment: Vital Signs/I&O: Vital Signs Date Time Temp Pulse Resp B/P (MAP) Pulse Ox O2 Delivery O2 Flow Rate FiO2 01/08/19 20:39 99 Room Air 01/08/19 17:24 76 148/78 01/08/19 15:37 97.3 20 I & O 01/07/19 01/07/19 01/08/19 14:59 22:59 06:59 Intake Total 600 ml 480 ml 200 ml Balance 600 ml 480 ml 200 ml Current Medications: I have reviewed the current psychotropics carefully including drug interactions. Risk benefit ratio favors no change other than as noted in my dictated progress note. 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
--- NOTE | 2019-01-08 22:56 | PN ---
DATE: 01/06/2019 PSYCHIATRIC PROGRESS NOTE This late entry 01/06/2019 covers elements not covered in my initial note. SUBJECTIVE: I met with the patient in the evening. The patient slept 8 hours previous night. He has been intermittently combative with staff, taking his clothes off, resistive to cares. He is quite threatening towards one of the male staff members, who he believes is responsible for his hospitalization. REVIEW OF SYSTEMS: No CV, , pulmonary, eye, ENT system symptoms on review. Reliability poor. MENTAL STATUS EXAM: Oriented to himself. Insight, judgment, recent and remote memory, attention, concentration, fund of knowledge poor, consistent with his diagnosis. He is quite hard of hearing. LABORATORY DATA: Reviewed. IMPRESSION: Unchanged from initial note. PLAN: No change from initial note. MAN Lucina VELEZ MD DR: ZEUS/citlali JOB#: [id number] / [id number]
--- NOTE | 2019-01-08 22:58 | PN ---
DATE: 01/07/2019 PSYCHIATRIC PROGRESS NOTE This late entry 01/07/2019 covers elements not covered in my initial note. SUBJECTIVE: I met with the patient in the evening. The patient was also staffed at a treatment team meeting with the entire team in the morning. Reviewed the patient's history, diagnosis, progress at length. Appetite 50-75%, sleeping average 7 hours, quite hard of hearing, but no CV, , pulmonary, eye system symptoms on review. He repeatedly removed the battery of his hearing aid and difficult to communicate with him. He was somewhat aggressive towards a particular male staff member. MENTAL STATUS EXAM: Oriented to himself. Insight, judgment, recent and remote memory, attention, concentration, fund of knowledge poor, consistent with his diagnosis mentioned in my initial note. PLAN: No change from initial note. Ativan will be stopped on 01/08/2019 and Depakote is being adjusted. Repeat labs on 01/09/2019. EMILE VELEZ MD DR: ZEUS/citlali JOB#: [id number] / [id number]
[2019-01-09] MEDS: BUDESONIDE 0.5 MG/2 ML NEBU NEB SCH ×2 (04:50→20:00)
[2019-01-09] MEDS: ALBUTEROL SULFATE 2.5 MG/3 ML NEBU. NEB SCH ×4 (04:50→20:00)
[2019-01-09 05:31] VITALS: BP 163/86
[2019-01-09] MEDS: POTASSIUM CHLORIDE 20 MEQ TABLET.ER. PO SCH (07:43)
[2019-01-09] MEDS: FINASTERIDE 5 MG TABLET PO SCH (07:44)
[2019-01-09] MEDS: APIXABAN 5 MG TABLET. PO SCH ×2 (07:44→19:57)
[2019-01-09] MEDS: CETIRIZINE HCL 10 MG TABLET PO SCH ×2 (07:44→19:58)
[2019-01-09] MEDS: DIVALPROEX 125 MG CAP.SPRINK PO SCH ×2 (07:44→19:58)
[2019-01-09] MEDS: FUROSEMIDE 20 MG TABLET PO SCH (07:44)
[2019-01-09] MEDS: SERTRALINE 50 MG TABLET. PO SCH (07:45)
[2019-01-09 07:47] LABS: BASO % 1 % (0-3); EOS # 0.2 x10^3/uL (0.0-0.7); EOS % 2 % (0-3); HEMATOCRIT 37.4 % (39.0-53.0); HEMOGLOBIN 12.3 g/dL (13.0-17.5); LYMPH # 1.2 x10^3/uL (1.0-4.8); LYMPH % 16 % (24-48); MEAN CORPUSCULAR HEMOGLOBIN 34 pg (25-35); MEAN CORPUSCULAR HGB CONC 33 g/dL (31-37); MEAN CORPUSCULAR VOLUME 104 fL (79-100); MONO # 0.8 x10^3/uL (0.0-1.1); MONO % 11 % (0-9); NEUT # 5.2 x10^3uL (1.8-7.7); NEUT % 70 % (31-73); PLATELET COUNT 269 x10^3/uL (140-400); RED BLOOD COUNT 3.61 x10^6/uL (4.30-5.70); WHITE BLOOD COUNT 7.4 x10^3/uL (4.0-11.0)
[2019-01-09 08:09] LABS: ALBUMIN 2.9 g/dL (3.4-5.0); ALBUMIN/GLOBULIN RATIO 0.9 (1.0-1.7); ALK PHOS 59 U/L (46-116); ALT (SGPT) 36 U/L (16-63); ANION GAP 4 (6-14); AST (SGOT) 22 U/L (15-37); BLOOD UREA NITROGEN 18 mg/dL (8-26); BUN/CREATININE RATIO 16 (6-20); CALCIUM 8.5 mg/dL (8.5-10.1); CARBON DIOXIDE 33 mmol/L (21-32); CHLORIDE 108 mmol/L (98-107); CREATININE 1.1 mg/dL (0.7-1.3); GFR 63.9; GLUCOSE 107 mg/dL (70-99); POTASSIUM 3.9 mmol/L (3.5-5.1); SODIUM 145 mmol/L (136-145); TOTAL BILIRUBIN 0.4 mg/dL (0.2-1.0); TOTAL PROTEIN 6.2 g/dL (6.4-8.2)
[2019-01-09 08:10] LABS: VAL ACID 30 mcg/mL (50-100)
[2019-01-09] MEDS: LORazepam INTENSOL 2 MG/ML BOTTLE SL PRN ×2 (13:40→21:45)
[2019-01-09 16:25] VITALS: BP 181/72
[2019-01-09] MEDS: DIGOXIN 125 MCG TABLET PO SCH (17:07)
[2019-01-09] MEDS: ATORVASTATIN CALCIUM 20 MG TABLET PO SCH (19:57)
[2019-01-09] MEDS: MIRTAZAPINE 15 MG TABLET PO SCH (19:58)
[2019-01-09] MEDS: risperiDONE 0.5 MG TABLET. PO SCH (19:58)
--- NOTE | 2019-01-09 23:05 | PDOC ---
Exam Note: Arjun Note: Please also refer to the separate dictated note~for this date of service dictated separately.~Patient seen individually. Discussed the patient with Nursing staff reviewed the chart.~Reviewed interim history and current functioning. Reviewed vital signs,~Labs/ Radiology~and current medications noted below. Continue current treatment with the changes noted in the dictated addendum note Assessment: Vital Signs/I&O: Vital Signs Date Time Temp Pulse Resp B/P (MAP) Pulse Ox O2 Delivery O2 Flow Rate FiO2 01/09/19 20:24 97 Room Air 01/09/19 17:07 79 181/72 01/09/19 16:25 97.5 18 I & O 01/08/19 01/08/19 01/09/19 15:00 23:00 07:00 Intake Total 1200 ml 240 ml 240 ml Balance 1200 ml 240 ml 240 ml Labs: Laboratory Tests Test 01/09/19 07:30 White Blood Count 7.4 x10^3/uL (4.0-11.0) Red Blood Count 3.61 x10^6/uL (4.30-5.70) L Hemoglobin 12.3 g/dL (13.0-17.5) L Hematocrit 37.4 % (39.0-53.0) L Mean Corpuscular Volume 104 fL (79-100) H Mean Corpuscular Hemoglobin 34 pg (25-35) Mean Corpuscular Hemoglobin Concent 33 g/dL (31-37) Red Cell Distribution Width 14.0 % (11.5-14.5) Platelet Count 269 x10^3/uL (140-400) Neutrophils (%) (Auto) 70 % (31-73) Lymphocytes (%) (Auto) 16 % (24-48) L Monocytes (%) (Auto) 11 % (0-9) H Eosinophils (%) (Auto) 2 % (0-3) Basophils (%) (Auto) 1 % (0-3) Neutrophils # (Auto) 5.2 x10^3uL (1.8-7.7) Lymphocytes # (Auto) 1.2 x10^3/uL (1.0-4.8) Monocytes # (Auto) 0.8 x10^3/uL (0.0-1.1) Eosinophils # (Auto) 0.2 x10^3/uL (0.0-0.7) Basophils # (Auto) 0.0 x10^3/uL (0.0-0.2) Sodium Level 145 mmol/L (136-145) Potassium Level 3.9 mmol/L (3.5-5.1) Chloride Level 108 mmol/L (98-107) H Carbon Dioxide Level 33 mmol/L (21-32) H Anion Gap 4 (6-14) L Blood Urea Nitrogen 18 mg/dL (8-26) Creatinine 1.1 mg/dL (0.7-1.3) Estimated GFR (Cockcroft-Gault) 63.9 BUN/Creatinine Ratio 16 (6-20) Glucose Level 107 mg/dL (70-99) H Calcium Level 8.5 mg/dL (8.5-10.1) Total Bilirubin 0.4 mg/dL (0.2-1.0) Aspartate Amino Transferase (AST) 22 U/L (15-37) Alanine Aminotransferase (ALT) 36 U/L (16-63) Alkaline Phosphatase 59 U/L (46-116) Total Protein 6.2 g/dL (6.4-8.2) L Albumin 2.9 g/dL (3.4-5.0) L Albumin/Globulin Ratio 0.9 (1.0-1.7) L Valproic Acid Level 30 mcg/mL (50-100) L Valproic Acid Last Dose Date 01/08/19 Valproic Acid Last Dose Time 2100 Current Medications: I have reviewed the current psychotropics carefully including drug interactions. Risk benefit ratio favors no change other than as noted in my dictated progress note. 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
[2019-01-10] MEDS: ALBUTEROL SULFATE 2.5 MG/3 ML NEBU. NEB SCH ×3 (05:18→20:00)
[2019-01-10 05:50] VITALS: BP 159/78
[2019-01-10] MEDS: POTASSIUM CHLORIDE 20 MEQ TABLET.ER. PO SCH (07:50)
[2019-01-10] MEDS: FINASTERIDE 5 MG TABLET PO SCH (07:50)
[2019-01-10] MEDS: CETIRIZINE HCL 10 MG TABLET PO SCH ×2 (07:51→20:13)
[2019-01-10] MEDS: APIXABAN 5 MG TABLET. PO SCH ×2 (07:51→20:14)
[2019-01-10] MEDS: FUROSEMIDE 20 MG TABLET PO SCH (07:51)
[2019-01-10] MEDS: SERTRALINE 100 MG TABLET. PO SCH (07:53)
[2019-01-10] MEDS: DIVALPROEX 125 MG CAP.SPRINK PO SCH ×2 (07:53→20:14)
[2019-01-10] MEDS: BUDESONIDE 0.5 MG/2 ML NEBU NEB SCH ×2 (08:00→20:00)
[2019-01-10] MEDS ORDERED: SERTRALINE 50 MG TABLET. PO SCH (09:00)
[2019-01-10] MEDS: DIGOXIN 125 MCG TABLET PO SCH (17:03)
[2019-01-10 17:25] VITALS: BP 122/68
[2019-01-10] MEDS: ATORVASTATIN CALCIUM 20 MG TABLET PO SCH (20:13)
[2019-01-10] MEDS: risperiDONE 0.5 MG TABLET. PO SCH (20:13)
[2019-01-10] MEDS: MIRTAZAPINE 15 MG TABLET PO SCH (20:13)
--- NOTE | 2019-01-10 22:12 | PDOC ---
Exam Note: Arjun Note: Please also refer to the separate dictated note~for this date of service dictated separately.~Patient seen individually. Discussed the patient with Nursing staff reviewed the chart.~Reviewed interim history and current functioning. Reviewed vital signs,~Labs/ Radiology~and current medications noted below. Continue current treatment with the changes noted in the dictated addendum note Assessment: Vital Signs/I&O: Vital Signs Date Time Temp Pulse Resp B/P (MAP) Pulse Ox O2 Delivery O2 Flow Rate FiO2 01/10/19 20:15 95 Room Air 01/10/19 17:25 97.8 77 20 122/68 (86) I & O 01/09/19 01/09/19 01/10/19 15:00 23:00 07:00 Intake Total 720 ml 240 ml 240 ml Balance 720 ml 240 ml 240 ml Current Medications: Meds: Current Medications Medications (Trade) Dose Ordered Sig/Lorenzo Route PRN Reason Start Time Stop Time Status Last Admin Dose Admin Divalproex Sodium (Depakote Sprinkles) 500 mg BID PO 01/10/19 09:00 01/10/19 20:14 Sertraline HCl (Zoloft) 100 mg DAILY PO 01/10/19 09:00 01/10/19 07:53 I have reviewed the current psychotropics carefully including drug interactions. Risk benefit ratio favors no change other than as noted in my dictated progress note. 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
--- NOTE | 2019-01-10 23:39 | PN ---
DATE: 01/08/2019 PSYCHIATRIC PROGRESS NOTE This late entry 01/08/2019 covers elements not covered in my initial note. SUBJECTIVE: I met with the patient in the evening of 01/08/2019. The patient slept 4-1/4 hours previous night. He takes his meds in ice cream. 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 REVIEW OF SYSTEMS: No CV, , pulmonary, eye, ENT system symptoms on review. Reliability poor. MENTAL STATUS EXAM: Oriented to himself. Insight, judgment, recent and remote memory, attention, concentration, fund of knowledge poor, consistent with his diagnosis mentioned in my initial note. PLAN: Continue current psychotropics. Check CBC, CMP, valproic acid level on 01/09/2019 and then adjust the Depakote. Rest unchanged for now. MAN Lucina VELEZ MD DR: ZEUS/citlali JOB#: [id number] / [id number]
--- NOTE | 2019-01-11 00:15 | PN ---
DATE: 01/09/2019 PSYCHIATRIC PROGRESS NOTE This late entry 01/09/2019 covers elements not covered in my initial note. SUBJECTIVE: I met with the patient in the evening of 01/09/2019. The patient slept 4-1/2 hours previous night. He remains anxious, restless, confused with marked fluent aphasia, expressive aphasia. REVIEW OF SYSTEMS: No CV, , pulmonary, eye, ENT system symptoms on review. Reliability poor. MENTAL STATUS EXAMINATION: Oriented to himself. Insight, judgment, recent and remote memory, attention, concentration, fund of knowledge poor, consistent with his diagnosis mentioned in my initial note. PLAN: Valproic acid level 01/09/2019 is 30, subtherapeutic on Depakote Sprinkles 375 mg b.i.d. We will increase this to 500 mg b.i.d. Check CBC, CMP, valproic acid level in 3 days with a plan to reach a therapeutic level. Increase Zoloft from 75 mg a day to 100 mg a day. Continue Remeron 15 mg at bedtime, Risperdal 0.75 mg at bedtime. Rest unchanged for now including trazodone and Zyprexa p.r.n. EMILE VELEZ MD DR: ZEUS/citlali JOB#: [id number] / [id number]
[2019-01-11] MEDS: ALBUTEROL SULFATE 2.5 MG/3 ML NEBU. NEB PRN (03:58)
[2019-01-11] MEDS: ALBUTEROL SULFATE 2.5 MG/3 ML NEBU. NEB SCH ×5 (05:05→20:00)
[2019-01-11 06:03] VITALS: BP 169/78
[2019-01-11 07:20] LABS: BASO # 0.1 x10^3/uL (0.0-0.2); BASO % 1 % (0-3); EOS # 0.2 x10^3/uL (0.0-0.7); EOS % 2 % (0-3); HEMATOCRIT 39.5 % (39.0-53.0); LYMPH # 1.5 x10^3/uL (1.0-4.8); LYMPH % 14 % (24-48); MEAN CORPUSCULAR HEMOGLOBIN 34 pg (25-35); MEAN CORPUSCULAR HGB CONC 33 g/dL (31-37); MEAN CORPUSCULAR VOLUME 104 fL (79-100); MONO # 1.3 x10^3/uL (0.0-1.1); MONO % 12 % (0-9); NEUT % 72 % (31-73); PLATELET COUNT 289 x10^3/uL (140-400); RED BLOOD COUNT 3.82 x10^6/uL (4.30-5.70); RED CELL DISTRIBUTION WIDTH 14.3 % (11.5-14.5)
[2019-01-11 07:33] LABS: ALBUMIN 3.3 g/dL (3.4-5.0); ALBUMIN/GLOBULIN RATIO 0.9 (1.0-1.7); CALCIUM 8.8 mg/dL (8.5-10.1); CREATININE 1.1 mg/dL (0.7-1.3); GFR 63.9; POTASSIUM 3.8 mmol/L (3.5-5.1); TOTAL BILIRUBIN 0.3 mg/dL (0.2-1.0); TOTAL PROTEIN 6.9 g/dL (6.4-8.2)
[2019-01-11] MEDS: POTASSIUM CHLORIDE 20 MEQ TABLET.ER. PO SCH (07:47)
[2019-01-11] MEDS: APIXABAN 5 MG TABLET. PO SCH ×2 (07:48→19:53)
[2019-01-11] MEDS: DIVALPROEX 125 MG CAP.SPRINK PO SCH ×2 (07:48→19:54)
[2019-01-11] MEDS: FUROSEMIDE 20 MG TABLET PO SCH (07:48)
[2019-01-11] MEDS: CETIRIZINE HCL 10 MG TABLET PO SCH ×2 (07:48→19:53)
[2019-01-11] MEDS: FINASTERIDE 5 MG TABLET PO SCH (07:48)
[2019-01-11] MEDS: SERTRALINE 100 MG TABLET. PO SCH (07:48)
[2019-01-11 07:50] LABS: % BANDS 6 % (0-9); % BASOS 1 % (0-3); % EOS 2 % (0-5); % LYMPHS 10 % (24-48); % METAS 1 % (0-0); % MONOS 9 % (0-10); % MYELOS 1 % (0-0); % SEGS 70 % (35-66)
[2019-01-11 07:51] LABS: PLT ESTIMATE ADEQUATE (ADEQUATE)
[2019-01-11 07:52] LABS: POLYCHROMASIA SLIGHT; TOXIC GRANULATION SLIGHT
[2019-01-11] MEDS: BUDESONIDE 0.5 MG/2 ML NEBU NEB SCH ×2 (08:00→20:00)
--- NOTE | 2019-01-11 08:23 | RAD ---
EXAM: Chest, single view. HISTORY: Wheezing. Cough. COMPARISON: 12/28/2018 FINDINGS: A frontal view of the chest is obtained. There is no consolidation, pleural effusion or pneumothorax. There is suspected bilateral basilar atelectasis or scarring. There is a stable prominent cardiac silhouette. There are healed rib fractures. There are calcified granulomas. There are degenerative changes involving both shoulders. IMPRESSION: No acute pulmonary finding. Electronically signed by: Laurita Washington MD (01/11/2019 8:20 AM) [place] [id number]
[2019-01-11] MEDS: LORazepam INTENSOL 2 MG/ML BOTTLE SL PRN ×2 (14:14→17:40)
[2019-01-11] MEDS: DIGOXIN 125 MCG TABLET PO SCH (17:46)
[2019-01-11 19:52] VITALS: BP 118/65
[2019-01-11] MEDS: MIRTAZAPINE 15 MG TABLET PO SCH (19:53)
[2019-01-11] MEDS: ATORVASTATIN CALCIUM 20 MG TABLET PO SCH (19:54)
[2019-01-11] MEDS: risperiDONE 1 MG TABLET. PO SCH (19:55)
--- NOTE | 2019-01-11 20:31 | PN ---
DATE: 01/10/2019 PSYCHIATRIC PROGRESS NOTE This is a late entry 01/10/2019, covers the elements not covered in my initial note. SUBJECTIVE: I met with the patient in the evening of 01/10/2019. The patient slept 6-1/2 hours previous night. He remains confused with fluent, expressive aphasia, wandering, takes his medications crushed. He did need Ativan Intensol previous night due to agitation as he was raising his voice. REVIEW OF SYSTEMS: No CV, , pulmonary, eye, ENT system symptoms on review. Reliability poor. MENTAL STATUS EXAM: Oriented to himself. Insight, judgment, recent and remote memory, attention, concentration, fund of knowledge poor, consistent with his diagnosis mentioned in my initial note. PLAN: Depakote has been adjusted. We will await repeat labs level. Continue rest unchanged for now. MAN Lucina VELEZ MD DR: ZEUS/citlali JOB#: [id number] / [id number]
[2019-01-11] MEDS: traZODone 50 MG TABLET. PO PRN (22:07)
--- NOTE | 2019-01-11 22:31 | PDOC ---
Exam Note: Arjun Note: Please also refer to the separate dictated note~for this date of service dictated separately.~Patient seen individually. Discussed the patient with Nursing staff reviewed the chart.~Reviewed interim history and current functioning. Reviewed vital signs,~Labs/ Radiology~and current medications noted below. Continue current treatment with the changes noted in the dictated addendum note Assessment: Vital Signs/I&O: Vital Signs Date Time Temp Pulse Resp B/P (MAP) Pulse Ox O2 Delivery O2 Flow Rate FiO2 01/11/19 20:05 94 Room Air 01/11/19 19:52 98.9 84 20 118/65 (82) I & O 01/10/19 01/10/19 01/11/19 14:59 22:59 06:59 Intake Total 360 ml 240 ml Balance 360 ml 240 ml Labs: Laboratory Tests Test 01/11/19 07:04 White Blood Count 11.0 x10^3/uL (4.0-11.0) Red Blood Count 3.82 x10^6/uL (4.30-5.70) L Hemoglobin 13.0 g/dL (13.0-17.5) Hematocrit 39.5 % (39.0-53.0) Mean Corpuscular Volume 104 fL (79-100) H Mean Corpuscular Hemoglobin 34 pg (25-35) Mean Corpuscular Hemoglobin Concent 33 g/dL (31-37) Red Cell Distribution Width 14.3 % (11.5-14.5) Platelet Count 289 x10^3/uL (140-400) Neutrophils (%) (Auto) 72 % (31-73) Lymphocytes (%) (Auto) 14 % (24-48) L Monocytes (%) (Auto) 12 % (0-9) H Eosinophils (%) (Auto) 2 % (0-3) Basophils (%) (Auto) 1 % (0-3) Neutrophils # (Auto) 8.0 x10^3uL (1.8-7.7) H Lymphocytes # (Auto) 1.5 x10^3/uL (1.0-4.8) Monocytes # (Auto) 1.3 x10^3/uL (0.0-1.1) H Eosinophils # (Auto) 0.2 x10^3/uL (0.0-0.7) Basophils # (Auto) 0.1 x10^3/uL (0.0-0.2) Segmented Neutrophils % 70 % (35-66) H Band Neutrophils % 6 % (0-9) Lymphocytes % 10 % (24-48) L Monocytes % 9 % (0-10) Eosinophils % 2 % (0-5) Basophils % 1 % (0-3) Metamyelocytes % 1 % (0-0) H Myelocytes % 1 % (0-0) H Toxic Granulation Slight Platelet Estimate Adequate (ADEQUATE) Large Platelets Occ Polychromasia Slight Macrocytosis Slight Sodium Level 146 mmol/L (136-145) H Potassium Level 3.8 mmol/L (3.5-5.1) Chloride Level 109 mmol/L (98-107) H Carbon Dioxide Level 33 mmol/L (21-32) H Anion Gap 4 (6-14) L Blood Urea Nitrogen 19 mg/dL (8-26) Creatinine 1.1 mg/dL (0.7-1.3) Estimated GFR (Cockcroft-Gault) 63.9 BUN/Creatinine Ratio 17 (6-20) Glucose Level 106 mg/dL (70-99) H Calcium Level 8.8 mg/dL (8.5-10.1) Total Bilirubin 0.3 mg/dL (0.2-1.0) Aspartate Amino Transferase (AST) 29 U/L (15-37) Alanine Aminotransferase (ALT) 42 U/L (16-63) Alkaline Phosphatase 65 U/L (46-116) Total Protein 6.9 g/dL (6.4-8.2) Albumin 3.3 g/dL (3.4-5.0) L Albumin/Globulin Ratio 0.9 (1.0-1.7) L Current Medications: Meds: Current Medications Medications (Trade) Dose Ordered Sig/Lorenzo Route PRN Reason Start Time Stop Time Status Last Admin Dose Admin Risperidone (RisperDAL) 1 mg QHS PO 01/11/19 21:00 01/11/19 19:55 I have reviewed the current psychotropics carefully including drug interactions. Risk benefit ratio favors no change other than as noted in my dictated progress note. 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
[2019-01-12 04:20] VITALS: BP 159/80
[2019-01-12] MEDS: BUDESONIDE 0.5 MG/2 ML NEBU NEB SCH ×2 (04:39→20:23)
[2019-01-12] MEDS: ALBUTEROL SULFATE 2.5 MG/3 ML NEBU. NEB SCH ×4 (04:39→20:23)
[2019-01-12] MEDS: CETIRIZINE HCL 10 MG TABLET PO SCH ×2 (08:34→19:45)
[2019-01-12] MEDS: FINASTERIDE 5 MG TABLET PO SCH (08:34)
[2019-01-12] MEDS: SERTRALINE 100 MG TABLET. PO SCH (08:35)
[2019-01-12] MEDS: POTASSIUM CHLORIDE 20 MEQ TABLET.ER. PO SCH (08:35)
[2019-01-12] MEDS: APIXABAN 5 MG TABLET. PO SCH ×2 (08:35→19:45)
[2019-01-12] MEDS: FUROSEMIDE 20 MG TABLET PO SCH (08:35)
[2019-01-12] MEDS: DIVALPROEX 125 MG CAP.SPRINK PO SCH ×2 (08:36→19:45)
[2019-01-12 15:51] VITALS: BP 121/67
[2019-01-12] MEDS: LORazepam INTENSOL 2 MG/ML BOTTLE SL PRN (16:09)
[2019-01-12] MEDS: DIGOXIN 125 MCG TABLET PO SCH (17:16)
[2019-01-12] MEDS: traZODone 50 MG TABLET. PO SCH (17:17)
[2019-01-12] MEDS: MIRTAZAPINE 15 MG TABLET PO SCH (19:45)
[2019-01-12] MEDS: risperiDONE 1 MG TABLET. PO SCH (19:45)
[2019-01-12] MEDS: ATORVASTATIN CALCIUM 20 MG TABLET PO SCH (19:45)
--- NOTE | 2019-01-12 22:32 | PDOC ---
Exam Note: Arjun Note: Please also refer to the separate dictated note~for this date of service dictated separately.~Patient seen individually. Discussed the patient with Nursing staff reviewed the chart.~Reviewed interim history and current functioning. Reviewed vital signs,~Labs/ Radiology~and current medications noted below. Continue current treatment with the changes noted in the dictated addendum note Assessment: Vital Signs/I&O: Vital Signs Date Time Temp Pulse Resp B/P (MAP) Pulse Ox O2 Delivery O2 Flow Rate FiO2 01/12/19 20:25 94 Room Air 01/12/19 17:19 83 121/67 01/12/19 15:51 97.8 20 I & O 01/11/19 01/11/19 01/12/19 15:00 23:00 07:00 Intake Total 840 ml 240 ml Balance 840 ml 240 ml Current Medications: Meds: Current Medications Medications (Trade) Dose Ordered Sig/Lorenzo Route PRN Reason Start Time Stop Time Status Last Admin Dose Admin Trazodone HCl (Desyrel) 12.5 mg BIDPCLD PO 01/12/19 17:30 01/12/19 17:19 I have reviewed the current psychotropics carefully including drug interactions. Risk benefit ratio favors no change other than as noted in my dictated progress note. 

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
[2019-01-13] MEDS: ALBUTEROL SULFATE 2.5 MG/3 ML NEBU. NEB SCH ×4 (05:30→21:13)
[2019-01-13] MEDS: BUDESONIDE 0.5 MG/2 ML NEBU NEB SCH ×2 (05:30→21:13)
[2019-01-13 05:43] VITALS: BP 115/84
[2019-01-13 07:12] LABS: BASO # 0.1 x10^3/uL (0.0-0.2); BASO % 1 % (0-3); EOS # 0.2 x10^3/uL (0.0-0.7); EOS % 2 % (0-3); HEMATOCRIT 37.3 % (39.0-53.0); HEMOGLOBIN 12.3 g/dL (13.0-17.5); LYMPH % 10 % (24-48); MEAN CORPUSCULAR HEMOGLOBIN 34 pg (25-35); MEAN CORPUSCULAR HGB CONC 33 g/dL (31-37); MEAN CORPUSCULAR VOLUME 103 fL (79-100); MONO # 1.1 x10^3/uL (0.0-1.1); MONO % 11 % (0-9); NEUT # 7.6 x10^3uL (1.8-7.7); NEUT % 77 % (31-73); PLATELET COUNT 273 x10^3/uL (140-400); RED BLOOD COUNT 3.62 x10^6/uL (4.30-5.70); RED CELL DISTRIBUTION WIDTH 14.2 % (11.5-14.5); WHITE BLOOD COUNT 9.9 x10^3/uL (4.0-11.0)
[2019-01-13 07:28] LABS: ALBUMIN 2.8 g/dL (3.4-5.0); ALBUMIN/GLOBULIN RATIO 0.8 (1.0-1.7); ALK PHOS 59 U/L (46-116); ALT (SGPT) 32 U/L (16-63); ANION GAP 7 (6-14); AST (SGOT) 21 U/L (15-37); BLOOD UREA NITROGEN 19 mg/dL (8-26); BUN/CREATININE RATIO 17 (6-20); CALCIUM 8.7 mg/dL (8.5-10.1); CARBON DIOXIDE 33 mmol/L (21-32); CHLORIDE 109 mmol/L (98-107); CREATININE 1.1 mg/dL (0.7-1.3); GFR 63.9; GLUCOSE 89 mg/dL (70-99); POTASSIUM 3.9 mmol/L (3.5-5.1); SODIUM 149 mmol/L (136-145); TOTAL BILIRUBIN 0.5 mg/dL (0.2-1.0); TOTAL PROTEIN 6.3 g/dL (6.4-8.2)
[2019-01-13 07:39] LABS: VAL ACID 44 mcg/mL (50-100)
[2019-01-13] MEDS: FINASTERIDE 5 MG TABLET PO SCH (08:23)
[2019-01-13] MEDS: APIXABAN 5 MG TABLET. PO SCH ×2 (08:24→19:38)
[2019-01-13] MEDS: DIVALPROEX 125 MG CAP.SPRINK PO SCH ×2 (08:24→19:37)
[2019-01-13] MEDS: CETIRIZINE HCL 10 MG TABLET PO SCH ×2 (08:24→19:38)
[2019-01-13] MEDS: FUROSEMIDE 20 MG TABLET PO SCH (08:24)
[2019-01-13] MEDS: SERTRALINE 100 MG TABLET. PO SCH (08:24)
[2019-01-13] MEDS: POTASSIUM CHLORIDE 20 MEQ TABLET.ER. PO SCH (08:24)
[2019-01-13] MEDS: traZODone 50 MG TABLET. PO SCH ×2 (13:11→17:40)
[2019-01-13 15:42] VITALS: BP 158/76
[2019-01-13] MEDS: DIGOXIN 125 MCG TABLET PO SCH (17:40)
[2019-01-13] MEDS: risperiDONE 1 MG TABLET. PO SCH (19:37)
[2019-01-13] MEDS: MIRTAZAPINE 15 MG TABLET PO SCH (19:38)
[2019-01-13] MEDS: ATORVASTATIN CALCIUM 20 MG TABLET PO SCH (19:38)
--- NOTE | 2019-01-13 20:55 | PDOC ---
Exam Note: Arjun Note: Please also refer to the separate dictated note~for this date of service dictated separately.~Patient seen individually. Discussed the patient with Nursing staff reviewed the chart.~Reviewed interim history and current functioning. Reviewed vital signs,~Labs/ Radiology~and current medications noted below. Continue current treatment with the changes noted in the dictated addendum note Assessment: Vital Signs/I&O: Vital Signs Date Time Temp Pulse Resp B/P (MAP) Pulse Ox O2 Delivery O2 Flow Rate FiO2 01/13/19 17:40 81 158/76 01/13/19 15:42 97.7 18 93 01/13/19 11:26 Room Air I & O 01/12/19 01/12/19 01/13/19 15:00 23:00 07:00 Intake Total 600 ml 480 ml Balance 600 ml 480 ml Labs: Laboratory Tests Test 01/13/19 07:03 White Blood Count 9.9 x10^3/uL (4.0-11.0) Red Blood Count 3.62 x10^6/uL (4.30-5.70) L Hemoglobin 12.3 g/dL (13.0-17.5) L Hematocrit 37.3 % (39.0-53.0) L Mean Corpuscular Volume 103 fL (79-100) H Mean Corpuscular Hemoglobin 34 pg (25-35) Mean Corpuscular Hemoglobin Concent 33 g/dL (31-37) Red Cell Distribution Width 14.2 % (11.5-14.5) Platelet Count 273 x10^3/uL (140-400) Neutrophils (%) (Auto) 77 % (31-73) H Lymphocytes (%) (Auto) 10 % (24-48) L Monocytes (%) (Auto) 11 % (0-9) H Eosinophils (%) (Auto) 2 % (0-3) Basophils (%) (Auto) 1 % (0-3) Neutrophils # (Auto) 7.6 x10^3uL (1.8-7.7) Lymphocytes # (Auto) 1.0 x10^3/uL (1.0-4.8) Monocytes # (Auto) 1.1 x10^3/uL (0.0-1.1) Eosinophils # (Auto) 0.2 x10^3/uL (0.0-0.7) Basophils # (Auto) 0.1 x10^3/uL (0.0-0.2) Sodium Level 149 mmol/L (136-145) H Potassium Level 3.9 mmol/L (3.5-5.1) Chloride Level 109 mmol/L (98-107) H Carbon Dioxide Level 33 mmol/L (21-32) H Anion Gap 7 (6-14) Blood Urea Nitrogen 19 mg/dL (8-26) Creatinine 1.1 mg/dL (0.7-1.3) Estimated GFR (Cockcroft-Gault) 63.9 BUN/Creatinine Ratio 17 (6-20) Glucose Level 89 mg/dL (70-99) Calcium Level 8.7 mg/dL (8.5-10.1) Total Bilirubin 0.5 mg/dL (0.2-1.0) Aspartate Amino Transferase (AST) 21 U/L (15-37) Alanine Aminotransferase (ALT) 32 U/L (16-63) Alkaline Phosphatase 59 U/L (46-116) Total Protein 6.3 g/dL (6.4-8.2) L Albumin 2.8 g/dL (3.4-5.0) L Albumin/Globulin Ratio 0.8 (1.0-1.7) L Valproic Acid Level 44 mcg/mL (50-100) L Valproic Acid Last Dose Date 01/12/19 Valproic Acid Last Dose Time 2100 Current Medications: I have reviewed the current psychotropics carefully including drug interactions. Risk benefit ratio favors no change other than as noted in my dictated progress note. 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
--- NOTE | 2019-01-13 23:13 | PN ---
DATE: 01/12/2019 PSYCHIATRIC PROGRESS NOTE This late entry, 01/12, covers elements not covered in my initial note. SUBJECTIVE: I met with the patient in the evening of 01/12. The patient slept 6-1/4 hours previous night. He had a very difficult evening the previous evening, received trazodone at 10:00 p.m. repeat. He has received Zyprexa and Ativan earlier in the evening on 01/12 due to his marked agitation. He was combative and at one point was talking in a cup as if it was a telephone holding it to his ear and then putting it on his mouth and speaking. REVIEW OF SYSTEMS: No CV, , pulmonary, eye, ENT system symptoms on review. Reliability poor. MENTAL STATUS EXAM: Oriented to himself. Insight, judgment, recent and remote memory, attention, concentration, fund of knowledge poor, consistent with his diagnosis mentioned in my initial note. PLAN: No change from initial note, but we will add trazodone 12.5 mg at noon and 5:00 p.m. Check labs morning of 01/13 on the Depakote, adjust thereafter to reach therapeutic level; last check on 01/09, valproic acid level was 30, subtherapeutic. MAN Lucina VELEZ MD DR: ZEUS/citlali JOB#: [id number] / [id number]
[2019-01-14] MEDS: ALBUTEROL SULFATE 2.5 MG/3 ML NEBU. NEB SCH ×4 (05:13→15:28)
[2019-01-14 06:14] VITALS: BP 138/61
[2019-01-14] MEDS: BUDESONIDE 0.5 MG/2 ML NEBU NEB SCH ×2 (08:00→19:22)
[2019-01-14] MEDS: POTASSIUM CHLORIDE 20 MEQ TABLET.ER. PO SCH (08:06)
[2019-01-14] MEDS: DIVALPROEX 125 MG CAP.SPRINK PO SCH ×2 (08:07→19:28)
[2019-01-14] MEDS: FINASTERIDE 5 MG TABLET PO SCH (08:07)
[2019-01-14] MEDS: SERTRALINE 100 MG TABLET. PO SCH (08:08)
[2019-01-14] MEDS: APIXABAN 5 MG TABLET. PO SCH ×2 (08:08→19:28)
[2019-01-14] MEDS: CETIRIZINE HCL 10 MG TABLET PO SCH ×2 (08:08→19:29)
[2019-01-14] MEDS: FUROSEMIDE 20 MG TABLET PO SCH (08:08)
[2019-01-14] MEDS: traZODone 50 MG TABLET. PO SCH ×2 (12:08→16:54)
[2019-01-14 16:12] VITALS: BP 116/62
[2019-01-14] MEDS: DIGOXIN 125 MCG TABLET PO SCH (16:52)
[2019-01-14] MEDS: ALBUTEROL SULFATE 2.5 MG/3 ML NEBU. NEB PRN (19:22)
[2019-01-14] MEDS: ATORVASTATIN CALCIUM 20 MG TABLET PO SCH (19:28)
[2019-01-14] MEDS: MIRTAZAPINE 15 MG TABLET PO SCH (19:28)
[2019-01-14] MEDS: risperiDONE 1 MG TABLET. PO SCH (19:29)
--- NOTE | 2019-01-14 22:27 | PDOC ---
Exam Note: Arjun Note: Please also refer to the separate dictated note~for this date of service dictated separately.~Patient seen individually. Discussed the patient with Nursing staff reviewed the chart.~Reviewed interim history and current functioning. Reviewed vital signs,~Labs/ Radiology~and current medications noted below. Continue current treatment with the changes noted in the dictated addendum note Assessment: Vital Signs/I&O: Vital Signs Date Time Temp Pulse Resp B/P (MAP) Pulse Ox O2 Delivery O2 Flow Rate FiO2 01/14/19 19:29 95 Room Air 01/14/19 16:54 70 116/62 01/14/19 16:12 98.3 16 I & O 01/13/19 01/13/19 01/14/19 15:00 23:00 07:00 Intake Total 720 ml 480 ml 120 ml Balance 720 ml 480 ml 120 ml Current Medications: Meds: Current Medications Medications (Trade) Dose Ordered Sig/Lorenzo Route PRN Reason Start Time Stop Time Status Last Admin Dose Admin Trazodone HCl (Desyrel) 12.5 mg 0900,1200,1700 PO 01/14/19 12:00 01/14/19 16:54 I have reviewed the current psychotropics carefully including drug interactions. Risk benefit ratio favors no change other than as noted in my dictated progress note. 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
[2019-01-15] MEDS: ALBUTEROL SULFATE 2.5 MG/3 ML NEBU. NEB SCH ×4 (05:07→19:56)
[2019-01-15 06:01] VITALS: BP 55/68
[2019-01-15] MEDS: BUDESONIDE 0.5 MG/2 ML NEBU NEB SCH ×3 (10:00→19:56)
[2019-01-15] MEDS: DIVALPROEX 125 MG CAP.SPRINK PO SCH ×2 (10:04→19:34)
[2019-01-15] MEDS: FINASTERIDE 5 MG TABLET PO SCH (10:04)
[2019-01-15] MEDS: SERTRALINE 100 MG TABLET. PO SCH (10:05)
[2019-01-15] MEDS: FUROSEMIDE 20 MG TABLET PO SCH (10:05)
[2019-01-15] MEDS: POTASSIUM CHLORIDE 20 MEQ TABLET.ER. PO SCH (10:05)
[2019-01-15] MEDS: APIXABAN 5 MG TABLET. PO SCH ×2 (10:06→19:33)
[2019-01-15] MEDS: CETIRIZINE HCL 10 MG TABLET PO SCH ×2 (10:06→19:32)
[2019-01-15] MEDS: traZODone 50 MG TABLET. PO SCH ×4 (10:07→19:34)
[2019-01-15 16:05] VITALS: BP 123/69
[2019-01-15] MEDS: DIGOXIN 125 MCG TABLET PO SCH (18:23)
[2019-01-15] MEDS: ATORVASTATIN CALCIUM 20 MG TABLET PO SCH (19:32)
[2019-01-15] MEDS: risperiDONE 1 MG TABLET. PO SCH (19:33)
[2019-01-15] MEDS: MIRTAZAPINE 15 MG TABLET PO SCH (19:34)
[2019-01-15] MEDS: traZODone 50 MG TABLET. PO PRN (21:07)
--- NOTE | 2019-01-15 22:14 | PDOC ---
Exam Note: Arjun Note: Please also refer to the separate dictated note~for this date of service dictated separately.~Patient seen individually. Discussed the patient with Nursing staff reviewed the chart.~Reviewed interim history and current functioning. Reviewed vital signs,~Labs/ Radiology~and current medications noted below. Continue current treatment with the changes noted in the dictated addendum note Assessment: Vital Signs/I&O: Vital Signs Date Time Temp Pulse Resp B/P (MAP) Pulse Ox O2 Delivery O2 Flow Rate FiO2 01/15/19 19:57 93 Room Air 01/15/19 18:23 79 123/69 01/15/19 16:05 98.0 20 I & O 01/14/19 01/14/19 01/15/19 14:59 22:59 06:59 Intake Total 1440 ml 120 ml 120 ml Balance 1440 ml 120 ml 120 ml Current Medications: I have reviewed the current psychotropics carefully including drug interactions. Risk benefit ratio favors no change other than as noted in my dictated progress note. 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
--- NOTE | 2019-01-15 22:59 | PN ---
DATE: 01/13/2019 PSYCHIATRIC PROGRESS NOTE This late entry, 01/13/2019, covers elements not covered in my initial note. SUBJECTIVE: I met with the patient evening of 01/13/2019. The patient slept 8 hours previous night. Generally, he has had a good day on 01/13/2019. Complains of feeling cold, as I met with him. I gave him an extra cover. LABORATORY DATA: Sodium is elevated. Valproic acid level 44. Trazodone has been added, scheduled during the day for his restlessness, agitation. REVIEW OF SYSTEMS: No CV, , pulmonary, eye, ENT system symptoms on review. Reliability poor. MENTAL STATUS EXAM: Oriented to himself. Insight, judgment, recent and remote memory, attention, concentration, fund of knowledge poor, consistent with his diagnosis mentioned in my initial note. PLAN: No change from initial note other than noted above. MAN Lucina VELEZ MD DR: ZEUS/citlali JOB#: [id number] / [id number]
--- NOTE | 2019-01-15 23:32 | PN ---
DATE: 01/14/2019 PSYCHIATRIC PROGRESS NOTE This late entry 01/14/2019 covers elements not covered in my initial note. SUBJECTIVE: I met with the patient evening of 01/14/2019. The patient slept 7 hours previous night. Appetite 75-100%. The patient was staffed at treatment team meeting with the entire team in the morning and seen individually at length in the evening. He remains anxious, restless, disorganized with fluent aphasia, marked expressive aphasia, intermittent agitation. REVIEW OF SYSTEMS: No CV, , pulmonary, eye, ENT system symptoms on review. Reliability poor. MENTAL STATUS EXAM: Oriented to himself. Insight, judgment, recent and remote memory, attention, concentration, fund of knowledge poor, consistent with his diagnosis mentioned in my initial note. PLAN: No change from initial note. Continue Depakote along with Risperdal, Remeron. Trazodone is 12.5 mg b.i.d. We will increase to 12.5 mg 3 times a day. Rest unchanged for now. MAN Lucina VELEZ MD DR: ZEUS/citlali JOB#: [id number] / [id number]
[2019-01-16] MEDS: ALBUTEROL SULFATE 2.5 MG/3 ML NEBU. NEB SCH ×4 (05:10→20:10)
[2019-01-16 06:27] VITALS: BP 156/79
[2019-01-16 06:45] LABS: BASO % 0 % (0-3); EOS # 0.1 x10^3/uL (0.0-0.7); EOS % 1 % (0-3); HEMATOCRIT 36.3 % (39.0-53.0); LYMPH # 1.2 x10^3/uL (1.0-4.8); LYMPH % 13 % (24-48); MEAN CORPUSCULAR HEMOGLOBIN 34 pg (25-35); MEAN CORPUSCULAR HGB CONC 33 g/dL (31-37); MEAN CORPUSCULAR VOLUME 102 fL (79-100); MONO # 1.5 x10^3/uL (0.0-1.1); MONO % 15 % (0-9); NEUT % 71 % (31-73); PLATELET COUNT 269 x10^3/uL (140-400); RED BLOOD COUNT 3.54 x10^6/uL (4.30-5.70); RED CELL DISTRIBUTION WIDTH 13.7 % (11.5-14.5); WHITE BLOOD COUNT 9.8 x10^3/uL (4.0-11.0)
[2019-01-16 07:03] LABS: ALBUMIN 2.4 g/dL (3.4-5.0); ALBUMIN/GLOBULIN RATIO 0.7 (1.0-1.7); CALCIUM 8.3 mg/dL (8.5-10.1); CREATININE 0.9 mg/dL (0.7-1.3); GFR 80.6; POTASSIUM 3.5 mmol/L (3.5-5.1); TOTAL BILIRUBIN 0.3 mg/dL (0.2-1.0); TOTAL PROTEIN 5.8 g/dL (6.4-8.2)
[2019-01-16] MEDS: SERTRALINE 100 MG TABLET. PO SCH (08:13)
[2019-01-16] MEDS: DIVALPROEX 125 MG CAP.SPRINK PO SCH ×2 (08:13→19:40)
[2019-01-16] MEDS: POTASSIUM CHLORIDE 20 MEQ TABLET.ER. PO SCH (08:13)
[2019-01-16] MEDS: CETIRIZINE HCL 10 MG TABLET PO SCH ×2 (08:14→19:39)
[2019-01-16] MEDS: APIXABAN 5 MG TABLET. PO SCH ×2 (08:14→19:40)
[2019-01-16] MEDS: traZODone 50 MG TABLET. PO SCH ×3 (08:14→17:14)
[2019-01-16] MEDS: FINASTERIDE 5 MG TABLET PO SCH (08:14)
[2019-01-16] MEDS: FUROSEMIDE 20 MG TABLET PO SCH (08:14)
--- NOTE | 2019-01-16 09:33 | RAD ---
PORTABLE CHEST 1V Clinical Indication: Change in patient status Comparison: AP chest January 11, 2019. Findings: Atherosclerotic thoracic aorta. The cardiac size is normal. Mild parenchymal scarring is unchanged. No focal airspace disease. There is no pneumothorax. No pleural effusion is appreciated. No acute bone abnormality. Advanced arthropathy of the shoulders is redemonstrated. IMPRESSION: No acute cardiopulmonary process. Electronically signed by: Zach Woods MD (01/16/2019 9:30 AM) [facility]
[2019-01-16 16:32] VITALS: BP_SYST 111; BP_SYST 136; BP_DIAS 55; BP_DIAS 79
[2019-01-16] MEDS: DIGOXIN 125 MCG TABLET PO SCH (17:15)
[2019-01-16] MEDS: MIRTAZAPINE 15 MG TABLET PO SCH (19:39)
[2019-01-16] MEDS: risperiDONE 1 MG TABLET. PO SCH (19:40)
[2019-01-16] MEDS: ATORVASTATIN CALCIUM 20 MG TABLET PO SCH (19:40)
[2019-01-16] MEDS: BUDESONIDE 0.5 MG/2 ML NEBU NEB SCH (20:10)
[2019-01-16] MEDS: LORazepam INTENSOL 2 MG/ML BOTTLE SL PRN (22:02)
--- NOTE | 2019-01-16 23:11 | PDOC ---
Exam Note: Arjun Note: Please also refer to the separate dictated note~for this date of service dictated separately.~Patient seen individually. Discussed the patient with Nursing staff reviewed the chart.~Reviewed interim history and current functioning. Reviewed vital signs,~Labs/ Radiology~and current medications noted below. Continue current treatment with the changes noted in the dictated addendum note Assessment: Vital Signs/I&O: Vital Signs Date Time Temp Pulse Resp B/P (MAP) Pulse Ox O2 Delivery O2 Flow Rate FiO2 01/16/19 20:27 97 Room Air 01/16/19 17:16 76 111/55 01/16/19 16:32 97.4 16 I & O 01/15/19 01/15/19 01/16/19 15:00 23:00 07:00 Intake Total 960 ml 360 ml Balance 960 ml 360 ml Labs: Laboratory Tests Test 01/16/19 06:22 White Blood Count 9.8 x10^3/uL (4.0-11.0) Red Blood Count 3.54 x10^6/uL (4.30-5.70) L Hemoglobin 12.0 g/dL (13.0-17.5) L Hematocrit 36.3 % (39.0-53.0) L Mean Corpuscular Volume 102 fL (79-100) H Mean Corpuscular Hemoglobin 34 pg (25-35) Mean Corpuscular Hemoglobin Concent 33 g/dL (31-37) Red Cell Distribution Width 13.7 % (11.5-14.5) Platelet Count 269 x10^3/uL (140-400) Neutrophils (%) (Auto) 71 % (31-73) Lymphocytes (%) (Auto) 13 % (24-48) L Monocytes (%) (Auto) 15 % (0-9) H Eosinophils (%) (Auto) 1 % (0-3) Basophils (%) (Auto) 0 % (0-3) Neutrophils # (Auto) 7.0 x10^3uL (1.8-7.7) Lymphocytes # (Auto) 1.2 x10^3/uL (1.0-4.8) Monocytes # (Auto) 1.5 x10^3/uL (0.0-1.1) H Eosinophils # (Auto) 0.1 x10^3/uL (0.0-0.7) Basophils # (Auto) 0.0 x10^3/uL (0.0-0.2) Sodium Level 143 mmol/L (136-145) Potassium Level 3.5 mmol/L (3.5-5.1) Chloride Level 107 mmol/L (98-107) Carbon Dioxide Level 32 mmol/L (21-32) Anion Gap 4 (6-14) L Blood Urea Nitrogen 15 mg/dL (8-26) Creatinine 0.9 mg/dL (0.7-1.3) Estimated GFR (Cockcroft-Gault) 80.6 BUN/Creatinine Ratio 17 (6-20) Glucose Level 87 mg/dL (70-99) Lactic Acid Level 0.8 mmol/L (0.4-2.0) Calcium Level 8.3 mg/dL (8.5-10.1) L Total Bilirubin 0.3 mg/dL (0.2-1.0) Aspartate Amino Transferase (AST) 20 U/L (15-37) Alanine Aminotransferase (ALT) 30 U/L (16-63) Alkaline Phosphatase 57 U/L (46-116) Total Protein 5.8 g/dL (6.4-8.2) L Albumin 2.4 g/dL (3.4-5.0) L Albumin/Globulin Ratio 0.7 (1.0-1.7) L Current Medications: I have reviewed the current psychotropics carefully including drug interactions. Risk benefit ratio favors no change other than as noted in my dictated progress note. 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
[2019-01-17 06:04] VITALS: BP 127/66
[2019-01-17] MEDS: ALBUTEROL SULFATE 2.5 MG/3 ML NEBU. NEB SCH ×3 (06:28→15:45)
[2019-01-17] MEDS: POTASSIUM CHLORIDE 20 MEQ TABLET.ER. PO SCH (07:40)
[2019-01-17] MEDS: traZODone 50 MG TABLET. PO SCH ×3 (07:41→16:40)
[2019-01-17] MEDS: APIXABAN 5 MG TABLET. PO SCH ×2 (07:41→19:45)
[2019-01-17] MEDS: CETIRIZINE HCL 10 MG TABLET PO SCH ×2 (07:41→19:45)
[2019-01-17] MEDS: FUROSEMIDE 20 MG TABLET PO SCH (07:41)
[2019-01-17] MEDS: FINASTERIDE 5 MG TABLET PO SCH (07:41)
[2019-01-17] MEDS: DIVALPROEX 125 MG CAP.SPRINK PO SCH ×2 (07:42→19:44)
[2019-01-17] MEDS: SERTRALINE 100 MG TABLET. PO SCH (07:42)
[2019-01-17] MEDS: BUDESONIDE 0.5 MG/2 ML NEBU NEB SCH (09:48)
[2019-01-17 16:27] VITALS: BP 149/64
[2019-01-17] MEDS: DIGOXIN 125 MCG TABLET PO SCH (16:40)
[2019-01-17] MEDS: risperiDONE 1 MG TABLET. PO SCH (19:45)
[2019-01-17] MEDS: MIRTAZAPINE 15 MG TABLET PO SCH (19:45)
[2019-01-17] MEDS: ATORVASTATIN CALCIUM 20 MG TABLET PO SCH (19:45)
--- NOTE | 2019-01-17 22:31 | PDOC ---
Exam Note: Arjun Note: Please also refer to the separate dictated note~for this date of service dictated separately.~Patient seen individually. Discussed the patient with Nursing staff reviewed the chart.~Reviewed interim history and current functioning. Reviewed vital signs,~Labs/ Radiology~and current medications noted below. Continue current treatment with the changes noted in the dictated addendum note Assessment: Vital Signs/I&O: Vital Signs Date Time Temp Pulse Resp B/P (MAP) Pulse Ox O2 Delivery O2 Flow Rate FiO2 01/17/19 16:40 75 149/64 01/17/19 16:27 98.0 18 98 01/17/19 15:45 Room Air I & O 01/16/19 01/16/19 01/17/19 14:59 22:59 06:59 Intake Total 720 ml 240 ml Balance 720 ml 240 ml Current Medications: I have reviewed the current psychotropics carefully including drug interactions. Risk benefit ratio favors no change other than as noted in my dictated progress note. 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
--- NOTE | 2019-01-17 22:37 | PN ---
DATE: 01/15/2019 This late entry 01/15/2019 covers elements not covered in my initial note. SUBJECTIVE: I met with the patient in the evening of 01/15/2019. The patient slept 5-1/2 hours previous night. Reportedly, he had a good day. Continues to have expressive aphasia, which is fluent. He has been pleasant, takes his medications, crushed at times and whole at other times. REVIEW OF SYSTEMS: No CV, , pulmonary, eye, ENT system symptoms on review. Reliability poor. MENTAL STATUS EXAM: Oriented to himself. Insight, judgment, recent and remote memory, attention, concentration, fund of knowledge poor, consistent with his diagnosis mentioned in my initial note. PLAN: No change from initial note. MAN Lucina VELEZ MD DR: ZEUS/citlali JOB#: [id number] / [id number]
[2019-01-18] MEDS: BUDESONIDE 0.5 MG/2 ML NEBU NEB SCH ×3 (04:50→20:17)
[2019-01-18] MEDS: ALBUTEROL SULFATE 2.5 MG/3 ML NEBU. NEB SCH ×5 (04:50→20:17)
[2019-01-18 05:45] VITALS: BP 136/76
[2019-01-18] MEDS: DIVALPROEX 125 MG CAP.SPRINK PO SCH ×2 (07:40→19:37)
[2019-01-18] MEDS: FUROSEMIDE 20 MG TABLET PO SCH (07:40)
[2019-01-18] MEDS: SERTRALINE 100 MG TABLET. PO SCH (07:41)
[2019-01-18] MEDS: FINASTERIDE 5 MG TABLET PO SCH (07:41)
[2019-01-18] MEDS: POTASSIUM CHLORIDE 20 MEQ TABLET.ER. PO SCH (07:41)
[2019-01-18] MEDS: CETIRIZINE HCL 10 MG TABLET PO SCH ×2 (07:41→19:36)
[2019-01-18] MEDS: traZODone 50 MG TABLET. PO SCH ×3 (07:41→16:37)
[2019-01-18] MEDS: APIXABAN 5 MG TABLET. PO SCH ×2 (07:42→19:36)
[2019-01-18 16:07] VITALS: BP 148/71
[2019-01-18] MEDS: DIGOXIN 125 MCG TABLET PO SCH (16:37)
[2019-01-18] MEDS: ACETAMINOPHEN 325 MG TABLET PO PRN (17:06)
[2019-01-18] MEDS: risperiDONE 1 MG TABLET. PO SCH (19:36)
[2019-01-18] MEDS: MIRTAZAPINE 15 MG TABLET PO SCH (19:36)
[2019-01-18] MEDS: ATORVASTATIN CALCIUM 20 MG TABLET PO SCH (19:37)
[2019-01-18] MEDS: traZODone 50 MG TABLET. PO PRN ×2 (21:35→23:44)
--- NOTE | 2019-01-18 22:30 | PN ---
DATE: 01/16/2019 PSYCHIATRIC PROGRESS NOTE. This late entry of 01/16/2019 covers the elements not covered in my initial note. SUBJECTIVE: I met with the patient in the evening of 01/16/2019. The patient slept 7-1/4 hours previous night. He received IV fluids at night, has some crackles in his lungs. We will defer to Dr. Sethi. REVIEW OF SYSTEMS: No CV, , pulmonary, eye, ENT system symptoms on review. Reliability poor. MENTAL STATUS EXAM: Oriented to himself. Insight, judgment, recent and remote memory, attention, concentration, fund of knowledge poor, consistent with his diagnosis. He has fluent aphasia, very rapid in his speech, disorganized. LABORATORY DATA: Reviewed. IMPRESSION: Unchanged from initial note. PLAN: No change from initial note. MAN Lucina VELEZ MD DR: ZEUS/citlali JOB#: [id number] / [id number]
--- NOTE | 2019-01-18 22:48 | PN ---
DATE: 01/17/2019 PSYCHIATRIC PROGRESS NOTE This late entry 01/17/2019 covers elements not covered in my initial note. SUBJECTIVE: I met with the patient in the evening of 01/17/2019. The patient slept 6 hours previous night. He has been agitated at times, otherwise had a good day. REVIEW OF SYSTEMS: No CV, , pulmonary, eye, ENT system symptoms on review. Reliability poor. MENTAL STATUS EXAM: Oriented to himself. Insight, judgment, recent and remote memory, attention, concentration, fund of knowledge poor, consistent with his diagnosis mentioned in my initial note. PLAN: No change from initial note. 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 MAN Lucina VELEZ MD DR: ZEUS/citlali JOB#: [id number] / [id number]
[2019-01-19] MEDS: ALBUTEROL SULFATE 2.5 MG/3 ML NEBU. NEB SCH ×4 (05:23→20:54)
[2019-01-19 05:46] VITALS: BP 138/89
[2019-01-19] MEDS: CETIRIZINE HCL 10 MG TABLET PO SCH ×2 (07:33→19:51)
[2019-01-19] MEDS: POTASSIUM CHLORIDE 20 MEQ TABLET.ER. PO SCH (07:34)
[2019-01-19] MEDS: FINASTERIDE 5 MG TABLET PO SCH (07:34)
[2019-01-19] MEDS: SERTRALINE 100 MG TABLET. PO SCH (07:34)
[2019-01-19] MEDS: FUROSEMIDE 20 MG TABLET PO SCH (07:35)
[2019-01-19] MEDS: traZODone 50 MG TABLET. PO SCH ×2 (07:35→11:25)
[2019-01-19] MEDS: APIXABAN 5 MG TABLET. PO SCH ×2 (07:35→19:50)
[2019-01-19] MEDS: DIVALPROEX 125 MG CAP.SPRINK PO SCH ×2 (07:36→19:52)
--- NOTE | 2019-01-19 08:52 | PDOC ---
Exam Note: Arjun Note: Late entry for DOS 01/18/2019. Please also refer to the separate dictated note~for this date of service dictated separately.~Patient seen individually. Discussed the patient with Nursing staff reviewed the chart.~Reviewed interim history and current functioning. Reviewed vital signs,~Labs/ Radiology~and current medications noted below. Continue current treatment with the changes noted in the dictated addendum note Assessment: Vital Signs/I&O: Vital Signs Date Time Temp Pulse Resp B/P (MAP) Pulse Ox O2 Delivery O2 Flow Rate FiO2 01/19/19 07:36 94 138/89 01/19/19 05:46 97.2 18 90 Room Air I & O 01/18/19 01/18/19 01/19/19 14:59 22:59 06:59 Intake Total 840 ml 120 ml 240 ml Balance 840 ml 120 ml 240 ml Current Medications: I have reviewed the current psychotropics carefully including drug interactions. Risk benefit ratio favors no change other than as noted in my dictated progress note. 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
[2019-01-19] MEDS: BUDESONIDE 0.5 MG/2 ML NEBU NEB SCH ×2 (10:30→20:54)
[2019-01-19 15:46] VITALS: BP 134/67
[2019-01-19] MEDS: DIGOXIN 125 MCG TABLET PO SCH (17:03)
[2019-01-19] MEDS: risperiDONE 1 MG TABLET. PO SCH (19:50)
[2019-01-19] MEDS: MIRTAZAPINE 15 MG TABLET PO SCH (19:50)
[2019-01-19] MEDS: traZODone 50 MG TABLET. PO PRN (19:51)
[2019-01-19] MEDS: ATORVASTATIN CALCIUM 20 MG TABLET PO SCH (19:52)
--- NOTE | 2019-01-19 22:26 | PDOC ---
Exam Note: Arjun Note: Please also refer to the separate dictated note~for this date of service dictated separately.~Patient seen individually. Discussed the patient with Nursing staff reviewed the chart.~Reviewed interim history and current functioning. Reviewed vital signs,~Labs/ Radiology~and current medications noted below. Continue current treatment with the changes noted in the dictated addendum note Assessment: Vital Signs/I&O: Vital Signs Date Time Temp Pulse Resp B/P (MAP) Pulse Ox O2 Delivery O2 Flow Rate FiO2 01/19/19 20:40 93 Room Air 01/19/19 17:03 84 134/67 01/19/19 15:46 97.9 20 I & O 01/18/19 01/18/19 01/19/19 14:59 22:59 06:59 Intake Total 840 ml 120 ml 240 ml Balance 840 ml 120 ml 240 ml Current Medications: I have reviewed the current psychotropics carefully including drug interactions. Risk benefit ratio favors no change other than as noted in my dictated progress note. 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
--- NOTE | 2019-01-20 00:56 | PN ---
DATE: 01/18/2019 PSYCHIATRIC PROGRESS NOTE This late entry, 01/18, covers elements not covered in my initial note. SUBJECTIVE: I met with the patient in the evening of 01/18. The patient slept 5-1/2 hours previous night. Per nursing report, he has been much more redirectable, still confused, but compliant with medications, less psychotic. REVIEW OF SYSTEMS: No CV, , pulmonary, eye, ENT system symptoms on review. Reliability poor. MENTAL STATUS EXAM: Oriented to himself. Insight, judgment, recent and remote memory, attention, concentration, fund of knowledge poor, consistent with his diagnosis. He has fluent expressive aphasia, but paranoia seems better and if he is not confronted when he is not understood, he is able to go along with it much better. LABORATORY DATA: Reviewed. IMPRESSION: Unchanged from initial note. PLAN: No change from initial note. MAN Lucina VELEZ MD DR: ZEUS/citlali JOB#: [id number] / [id number]
[2019-01-20] MEDS: ALBUTEROL SULFATE 2.5 MG/3 ML NEBU. NEB SCH ×4 (05:15→20:26)
[2019-01-20 06:29] VITALS: BP 129/66
[2019-01-20] MEDS: APIXABAN 5 MG TABLET. PO SCH ×2 (07:18→19:26)
[2019-01-20] MEDS: FINASTERIDE 5 MG TABLET PO SCH (07:18)
[2019-01-20] MEDS: POTASSIUM CHLORIDE 20 MEQ TABLET.ER. PO SCH (07:18)
[2019-01-20] MEDS: CETIRIZINE HCL 10 MG TABLET PO SCH ×2 (07:19→19:26)
[2019-01-20] MEDS: SERTRALINE 100 MG TABLET. PO SCH (07:19)
[2019-01-20] MEDS: DIVALPROEX 125 MG CAP.SPRINK PO SCH ×2 (07:19→19:26)
[2019-01-20] MEDS: traZODone 50 MG TABLET. PO SCH ×3 (07:21→16:27)
[2019-01-20] MEDS: FUROSEMIDE 20 MG TABLET PO SCH (07:21)
[2019-01-20] MEDS: BUDESONIDE 0.5 MG/2 ML NEBU NEB SCH ×2 (08:00→20:26)
[2019-01-20 15:49] VITALS: BP 111/60
[2019-01-20] MEDS: DIGOXIN 125 MCG TABLET PO SCH (16:29)
[2019-01-20] MEDS: risperiDONE 1 MG TABLET. PO SCH (19:26)
[2019-01-20] MEDS: MIRTAZAPINE 15 MG TABLET PO SCH (19:26)
[2019-01-20] MEDS: ATORVASTATIN CALCIUM 20 MG TABLET PO SCH (19:26)
--- NOTE | 2019-01-20 21:57 | PDOC ---
Exam Note: Arjun Note: Please also refer to the separate dictated note~for this date of service dictated separately.~Patient seen individually. Discussed the patient with Nursing staff reviewed the chart.~Reviewed interim history and current functioning. Reviewed vital signs,~Labs/ Radiology~and current medications noted below. Continue current treatment with the changes noted in the dictated addendum note Assessment: Vital Signs/I&O: Vital Signs Date Time Temp Pulse Resp B/P (MAP) Pulse Ox O2 Delivery O2 Flow Rate FiO2 01/20/19 20:28 93 Room Air 01/20/19 16:29 70 111/60 01/20/19 15:49 97.9 16 I & O 01/19/19 01/19/19 01/20/19 14:59 22:59 06:59 Intake Total 600 ml 600 ml 120 ml Balance 600 ml 600 ml 120 ml Current Medications: Meds: Current Medications Medications (Trade) Dose Ordered Sig/Lorenzo Route PRN Reason Start Time Stop Time Status Last Admin Dose Admin Trazodone HCl (Desyrel) 12.5 mg BID@0900,1700 PO 01/20/19 09:00 01/20/19 16:27 Trazodone HCl (Desyrel) 25 mg DAILYWLUN PO 01/20/19 12:00 01/20/19 12:07 I have reviewed the current psychotropics carefully including drug interactions. Risk benefit ratio favors no change other than as noted in my dictated progress note. 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
--- NOTE | 2019-01-21 03:33 | PN ---
DATE: 01/19/2019 PSYCHIATRIC PROGRESS NOTE This late entry 01/19/2019 covers elements not covered in my initial note. SUBJECTIVE: I met with the patient evening of 01/19/2019. The patient slept 4-1/2 hours previous night. He has been restless, wandering the hallways at night, agitated, refused to change his bandage. When the staff finally changed it, he pulled it off. REVIEW OF SYSTEMS: No CV, , pulmonary, eye, ENT system symptoms on review. Reliability poor. MENTAL STATUS EXAM: Oriented to himself. Insight, judgment, recent and remote memory, attention, concentration, fund of knowledge poor, consistent with his diagnosis mentioned in my initial note. PLAN: Continue current psychotropics. Increase trazodone from 12.5 mg 3 times a day to 12.5 mg twice a day and increase the noon trazodone from 12.5 mg to 25 mg. Continue rest unchanged for now. MAN Lucina VELEZ MD DR: ZEUS/citlali JOB#: [id number] / [id number]
[2019-01-21] MEDS: BUDESONIDE 0.5 MG/2 ML NEBU NEB SCH ×2 (05:49→20:32)
[2019-01-21] MEDS: ALBUTEROL SULFATE 2.5 MG/3 ML NEBU. NEB SCH ×4 (05:50→20:32)
[2019-01-21 06:12] VITALS: BP 148/69
[2019-01-21] MEDS: POTASSIUM CHLORIDE 20 MEQ TABLET.ER. PO SCH (08:06)
[2019-01-21] MEDS: SERTRALINE 100 MG TABLET. PO SCH (08:06)
[2019-01-21] MEDS: FINASTERIDE 5 MG TABLET PO SCH (08:06)
[2019-01-21] MEDS: DIVALPROEX 125 MG CAP.SPRINK PO SCH ×2 (08:06→20:22)
[2019-01-21] MEDS: APIXABAN 5 MG TABLET. PO SCH ×2 (08:07→20:20)
[2019-01-21] MEDS: FUROSEMIDE 20 MG TABLET PO SCH (08:07)
[2019-01-21] MEDS: CETIRIZINE HCL 10 MG TABLET PO SCH ×2 (08:07→20:20)
[2019-01-21] MEDS: traZODone 50 MG TABLET. PO SCH ×3 (08:07→17:30)
[2019-01-21 15:50] VITALS: BP 126/66
[2019-01-21] MEDS: DIGOXIN 125 MCG TABLET PO SCH (17:29)
[2019-01-21] MEDS: ATORVASTATIN CALCIUM 20 MG TABLET PO SCH (20:20)
[2019-01-21] MEDS: risperiDONE 1 MG TABLET. PO SCH (20:20)
[2019-01-21] MEDS: MIRTAZAPINE 15 MG TABLET PO SCH (20:21)
--- NOTE | 2019-01-21 22:10 | PDOC ---
Exam Note: Arjun Note: Please also refer to the separate dictated note~for this date of service dictated separately.~Patient seen individually. Discussed the patient with Nursing staff reviewed the chart.~Reviewed interim history and current functioning. Reviewed vital signs,~Labs/ Radiology~and current medications noted below. Continue current treatment with the changes noted in the dictated addendum note Assessment: Vital Signs/I&O: Vital Signs Date Time Temp Pulse Resp B/P (MAP) Pulse Ox O2 Delivery O2 Flow Rate FiO2 01/21/19 20:36 95 Room Air 01/21/19 17:30 83 126/66 01/21/19 15:50 97.9 18 I & O 01/20/19 01/20/19 01/21/19 14:59 22:59 06:59 Intake Total 120 ml 240 ml 120 ml Balance 120 ml 240 ml 120 ml Current Medications: Meds: Current Medications Medications (Trade) Dose Ordered Sig/Lorenzo Route PRN Reason Start Time Stop Time Status Last Admin Dose Admin Divalproex Sodium (Depakote Sprinkles) 750 mg HS PO 01/21/19 21:00 01/21/19 20:24 I have reviewed the current psychotropics carefully including drug interactions. Risk benefit ratio favors no change other than as noted in my dictated progress note. 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
[2019-01-22 05:45] VITALS: BP 160/87
[2019-01-22] MEDS: BUDESONIDE 0.5 MG/2 ML NEBU NEB SCH ×2 (06:01→20:50)
[2019-01-22] MEDS: ALBUTEROL SULFATE 2.5 MG/3 ML NEBU. NEB SCH ×4 (06:02→20:50)
[2019-01-22] MEDS: POTASSIUM CHLORIDE 20 MEQ TABLET.ER. PO SCH (08:06)
[2019-01-22] MEDS: APIXABAN 5 MG TABLET. PO SCH ×2 (08:07→19:52)
[2019-01-22] MEDS: CETIRIZINE HCL 10 MG TABLET PO SCH ×2 (08:07→19:52)
[2019-01-22] MEDS: traZODone 50 MG TABLET. PO SCH ×3 (08:07→17:09)
[2019-01-22] MEDS: SERTRALINE 100 MG TABLET. PO SCH (08:07)
[2019-01-22] MEDS: FUROSEMIDE 20 MG TABLET PO SCH (08:07)
[2019-01-22] MEDS: FINASTERIDE 5 MG TABLET PO SCH (08:08)
[2019-01-22] MEDS: DIVALPROEX 125 MG CAP.SPRINK PO SCH ×2 (08:09→19:52)
[2019-01-22 15:32] VITALS: BP 138/75
[2019-01-22] MEDS: DIGOXIN 125 MCG TABLET PO SCH (17:10)
[2019-01-22] MEDS: risperiDONE 1 MG TABLET. PO SCH (19:52)
[2019-01-22] MEDS: ATORVASTATIN CALCIUM 20 MG TABLET PO SCH (19:52)
[2019-01-22] MEDS: MIRTAZAPINE 15 MG TABLET PO SCH (19:52)
--- NOTE | 2019-01-22 22:14 | PDOC ---
Exam Note: Arjun Note: Please also refer to the separate dictated note~for this date of service dictated separately.~Patient seen individually. Discussed the patient with Nursing staff reviewed the chart.~Reviewed interim history and current functioning. Reviewed vital signs,~Labs/ Radiology~and current medications noted below. Continue current treatment with the changes noted in the dictated addendum note Assessment: Vital Signs/I&O: Vital Signs Date Time Temp Pulse Resp B/P (MAP) Pulse Ox O2 Delivery O2 Flow Rate FiO2 01/22/19 20:34 95 Room Air 01/22/19 17:10 87 138/75 01/22/19 15:32 97.9 18 I & O 01/21/19 01/21/19 01/22/19 15:00 23:00 07:00 Intake Total 960 ml 240 ml 120 ml Balance 960 ml 240 ml 120 ml Current Medications: Meds: Current Medications Medications (Trade) Dose Ordered Sig/Lorenzo Route PRN Reason Start Time Stop Time Status Last Admin Dose Admin Divalproex Sodium (Depakote Sprinkles) 500 mg DAILY PO 01/22/19 09:00 01/22/19 08:09 I have reviewed the current psychotropics carefully including drug interactions. Risk benefit ratio favors no change other than as noted in my dictated progress note. 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
--- NOTE | 2019-01-22 22:52 | PN ---
DATE: 01/20/2019 This late entry 01/20 covers elements not covered in my initial note. SUBJECTIVE: I met with the patient evening of 01/20. Overall, the patient remains confused, had a good day, but at previous night he had difficulty taking his medications. He has been wandering, has marked fluent expressive aphasia, exit seeking, confused, slept 6-1/4 hours. REVIEW OF SYSTEMS: No CV, , pulmonary, eye, ENT system symptoms on review. Reliability poor. MENTAL STATUS EXAM: Oriented to himself. Insight, judgment, recent and remote memory, attention, concentration, fund of knowledge poor, consistent with his diagnosis mentioned in my initial note. PLAN: No change from initial note. MAN Lucina VELEZ MD DR: ZEUS/citlali JOB#: [id number] / [id number]
--- NOTE | 2019-01-22 23:04 | PN ---
DATE: 01/21/2019 PYSCHIATRIC PROGRESS NOTE This is a late entry 01/21/2019, covers the elements not covered in my initial note. SUBJECTIVE: I met with the patient in the evening of 01/21/2019. Staffed at a treatment team meeting with the entire team in the morning. The patient is sleeping about 7 hours. Appetite 75-100%. He is confused, wandering, takes his medications in chocolate pudding. Valproic acid level subtherapeutic at 44, on Depakote Sprinkles 500 b.i.d. REVIEW OF SYSTEMS: No CV, , pulmonary, eye, ENT system symptoms on review. MENTAL STATUS EXAM: Oriented to himself. Insight, judgment, recent and remote memory, attention, concentration, fund of knowledge poor, consistent with his diagnosis mentioned in my initial note. PLAN: Increase Depakote sprinkles to 500 mg a.m., 750 at bedtime. Check CBC, CMP, valproic acid level in 3 days. Rest unchanged for now. Arrange transition to [facility] in [place] as the family desires, but he may need transportation rather than family having him their car for transportation. EMILE VELEZ MD DR: ZEUS/citlali JOB#: [id number] / [id number]
[2019-01-23] MEDS: ALBUTEROL SULFATE 2.5 MG/3 ML NEBU. NEB SCH ×4 (05:06→20:38)
[2019-01-23 05:45] VITALS: BP 148/90
[2019-01-23] MEDS: POTASSIUM CHLORIDE 20 MEQ TABLET.ER. PO SCH (08:01)
[2019-01-23] MEDS: DIVALPROEX 125 MG CAP.SPRINK PO SCH ×2 (08:01→19:36)
[2019-01-23] MEDS: FINASTERIDE 5 MG TABLET PO SCH (08:02)
[2019-01-23] MEDS: FUROSEMIDE 20 MG TABLET PO SCH (08:02)
[2019-01-23] MEDS: CETIRIZINE HCL 10 MG TABLET PO SCH ×2 (08:02→19:36)
[2019-01-23] MEDS: traZODone 50 MG TABLET. PO SCH ×3 (08:03→17:34)
[2019-01-23] MEDS: SERTRALINE 100 MG TABLET. PO SCH (08:03)
[2019-01-23] MEDS: APIXABAN 5 MG TABLET. PO SCH ×2 (08:03→19:36)
[2019-01-23] MEDS: BUDESONIDE 0.5 MG/2 ML NEBU NEB SCH ×2 (10:16→20:38)
[2019-01-23 15:52] VITALS: BP 106/64
[2019-01-23] MEDS: DIGOXIN 125 MCG TABLET PO SCH (17:34)
[2019-01-23] MEDS: MIRTAZAPINE 15 MG TABLET PO SCH (19:36)
[2019-01-23] MEDS: ATORVASTATIN CALCIUM 20 MG TABLET PO SCH (19:36)
[2019-01-23] MEDS: risperiDONE 1 MG TABLET. PO SCH (19:36)
--- NOTE | 2019-01-23 22:04 | PDOC ---
Exam Note: Arjun Note: Please also refer to the separate dictated note~for this date of service dictated separately.~Patient seen individually. Discussed the patient with Nursing staff reviewed the chart.~Reviewed interim history and current functioning. Reviewed vital signs,~Labs/ Radiology~and current medications noted below. Continue current treatment with the changes noted in the dictated addendum note Assessment: Vital Signs/I&O: Vital Signs Date Time Temp Pulse Resp B/P (MAP) Pulse Ox O2 Delivery O2 Flow Rate FiO2 01/23/19 20:35 94 Room Air 01/23/19 17:34 69 106/64 01/23/19 15:52 97.4 20 I & O 01/22/19 01/22/19 01/23/19 15:00 23:00 07:00 Intake Total 720 ml 240 ml 120 ml Balance 720 ml 240 ml 120 ml Current Medications: I have reviewed the current psychotropics carefully including drug interactions. Risk benefit ratio favors no change other than as noted in my dictated progress note. 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
[2019-01-24 05:00] VITALS: BP 176/76
[2019-01-24] MEDS: ALBUTEROL SULFATE 2.5 MG/3 ML NEBU. NEB SCH ×4 (05:18→20:45)
[2019-01-24 07:25] LABS: BASO # 0.1 x10^3/uL (0.0-0.2); BASO % 1 % (0-3); EOS # 0.2 x10^3/uL (0.0-0.7); EOS % 2 % (0-3); HEMATOCRIT 34.9 % (39.0-53.0); HEMOGLOBIN 11.3 g/dL (13.0-17.5); LYMPH # 1.7 x10^3/uL (1.0-4.8); LYMPH % 16 % (24-48); MEAN CORPUSCULAR HEMOGLOBIN 33 pg (25-35); MEAN CORPUSCULAR HGB CONC 32 g/dL (31-37); MEAN CORPUSCULAR VOLUME 103 fL (79-100); MONO # 1.3 x10^3/uL (0.0-1.1); MONO % 12 % (0-9); NEUT # 7.9 x10^3uL (1.8-7.7); NEUT % 71 % (31-73); PLATELET COUNT 266 x10^3/uL (140-400); RED BLOOD COUNT 3.38 x10^6/uL (4.30-5.70); RED CELL DISTRIBUTION WIDTH 13.7 % (11.5-14.5); WHITE BLOOD COUNT 11.2 x10^3/uL (4.0-11.0)
[2019-01-24 07:38] LABS: ALBUMIN 2.2 g/dL (3.4-5.0); ALBUMIN/GLOBULIN RATIO 0.6 (1.0-1.7); ALK PHOS 52 U/L (46-116); ALT (SGPT) 26 U/L (16-63); ANION GAP 4 (6-14); AST (SGOT) 21 U/L (15-37); BLOOD UREA NITROGEN 17 mg/dL (8-26); BUN/CREATININE RATIO 17 (6-20); CALCIUM 8.4 mg/dL (8.5-10.1); CARBON DIOXIDE 33 mmol/L (21-32); CHLORIDE 107 mmol/L (98-107); GFR 71.4; GLUCOSE 83 mg/dL (70-99); POTASSIUM 3.8 mmol/L (3.5-5.1); SODIUM 144 mmol/L (136-145); TOTAL BILIRUBIN 0.2 mg/dL (0.2-1.0); TOTAL PROTEIN 5.7 g/dL (6.4-8.2)
[2019-01-24 07:44] LABS: VAL ACID 41 mcg/mL (50-100)
[2019-01-24] MEDS: CETIRIZINE HCL 10 MG TABLET PO SCH ×2 (07:49→19:27)
[2019-01-24] MEDS: FINASTERIDE 5 MG TABLET PO SCH (07:50)
[2019-01-24] MEDS: POTASSIUM CHLORIDE 20 MEQ TABLET.ER. PO SCH (07:50)
[2019-01-24] MEDS: APIXABAN 5 MG TABLET. PO SCH ×2 (07:50→19:27)
[2019-01-24] MEDS: FUROSEMIDE 20 MG TABLET PO SCH (07:50)
[2019-01-24] MEDS: DIVALPROEX 125 MG CAP.SPRINK PO SCH ×2 (07:50→19:28)
[2019-01-24] MEDS: SERTRALINE 100 MG TABLET. PO SCH (07:50)
[2019-01-24] MEDS: traZODone 50 MG TABLET. PO SCH ×3 (07:51→16:19)
[2019-01-24 08:10] LABS: % BANDS 3 % (0-9); % BASOS 0 % (0-3); % EOS 1 % (0-5); % LYMPHS 17 % (24-48); % MONOS 8 % (0-10); % MYELOS 2 % (0-0); % SEGS 69 % (35-66); PLT ESTIMATE ADEQUATE (ADEQUATE); TOXIC VACUOLATION SLIGHT
[2019-01-24] MEDS: BUDESONIDE 0.5 MG/2 ML NEBU NEB SCH ×2 (10:12→20:44)
[2019-01-24 16:08] VITALS: BP 152/83
[2019-01-24] MEDS: DIGOXIN 125 MCG TABLET PO SCH (16:19)
[2019-01-24] MEDS: ATORVASTATIN CALCIUM 20 MG TABLET PO SCH (19:27)
[2019-01-24] MEDS: MIRTAZAPINE 15 MG TABLET PO SCH (19:27)
[2019-01-24] MEDS: risperiDONE 1 MG TABLET. PO SCH (19:28)
--- NOTE | 2019-01-24 21:07 | PDOC ---
Exam Note: Arjun Note: Please also refer to the separate dictated note~for this date of service dictated separately.~Patient seen individually. Discussed the patient with Nursing staff reviewed the chart.~Reviewed interim history and current functioning. Reviewed vital signs,~Labs/ Radiology~and current medications noted below. Continue current treatment with the changes noted in the dictated addendum note Assessment: Vital Signs/I&O: Vital Signs Date Time Temp Pulse Resp B/P (MAP) Pulse Ox O2 Delivery O2 Flow Rate FiO2 01/24/19 20:35 96 Room Air 01/24/19 16:19 82 152/83 01/24/19 16:08 97.0 18 I & O 01/23/19 01/23/19 01/24/19 14:59 22:59 06:59 Intake Total 120 ml 360 ml 240 ml Balance 120 ml 360 ml 240 ml Labs: Laboratory Tests Test 01/24/19 07:15 White Blood Count 11.2 x10^3/uL (4.0-11.0) H Red Blood Count 3.38 x10^6/uL (4.30-5.70) L Hemoglobin 11.3 g/dL (13.0-17.5) L Hematocrit 34.9 % (39.0-53.0) L Mean Corpuscular Volume 103 fL (79-100) H Mean Corpuscular Hemoglobin 33 pg (25-35) Mean Corpuscular Hemoglobin Concent 32 g/dL (31-37) Red Cell Distribution Width 13.7 % (11.5-14.5) Platelet Count 266 x10^3/uL (140-400) Neutrophils (%) (Auto) 71 % (31-73) Lymphocytes (%) (Auto) 16 % (24-48) L Monocytes (%) (Auto) 12 % (0-9) H Eosinophils (%) (Auto) 2 % (0-3) Basophils (%) (Auto) 1 % (0-3) Neutrophils # (Auto) 7.9 x10^3uL (1.8-7.7) H Lymphocytes # (Auto) 1.7 x10^3/uL (1.0-4.8) Monocytes # (Auto) 1.3 x10^3/uL (0.0-1.1) H Eosinophils # (Auto) 0.2 x10^3/uL (0.0-0.7) Basophils # (Auto) 0.1 x10^3/uL (0.0-0.2) Segmented Neutrophils % 69 % (35-66) H Band Neutrophils % 3 % (0-9) Lymphocytes % 17 % (24-48) L Monocytes % 8 % (0-10) Eosinophils % 1 % (0-5) Basophils % 0 % (0-3) Myelocytes % 2 % (0-0) H Toxic Vacuolation Slight Platelet Estimate Adequate (ADEQUATE) Sodium Level 144 mmol/L (136-145) Potassium Level 3.8 mmol/L (3.5-5.1) Chloride Level 107 mmol/L (98-107) Carbon Dioxide Level 33 mmol/L (21-32) H Anion Gap 4 (6-14) L Blood Urea Nitrogen 17 mg/dL (8-26) Creatinine 1.0 mg/dL (0.7-1.3) Estimated GFR (Cockcroft-Gault) 71.4 BUN/Creatinine Ratio 17 (6-20) Glucose Level 83 mg/dL (70-99) Calcium Level 8.4 mg/dL (8.5-10.1) L Total Bilirubin 0.2 mg/dL (0.2-1.0) Aspartate Amino Transferase (AST) 21 U/L (15-37) Alanine Aminotransferase (ALT) 26 U/L (16-63) Alkaline Phosphatase 52 U/L (46-116) Total Protein 5.7 g/dL (6.4-8.2) L Albumin 2.2 g/dL (3.4-5.0) L Albumin/Globulin Ratio 0.6 (1.0-1.7) L Valproic Acid Level 41 mcg/mL (50-100) L Valproic Acid Last Dose Date 01/23/19 Valproic Acid Last Dose Time 2100 Current Medications: I have reviewed the current psychotropics carefully including drug interactions. Risk benefit ratio favors no change other than as noted in my dictated progress note. 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
[2019-01-24] MEDS: traZODone 50 MG TABLET. PO PRN (21:52)
--- NOTE | 2019-01-24 22:37 | PN ---
DATE: 01/23/2019 PSYCHIATRIC PROGRESS NOTE This late entry, 01/23/2019, covers elements not covered in my initial note. SUBJECTIVE: I met with the patient in the evening of 01/23/2019. The patient slept 5-1/2 hours previous night. Per nursing report, he had a "great day." No PRNs were given. Compliant with medications. He talked rapidly, as I met with him, with fluent, expressive aphasia, perhaps at times seems to understand better receptively. REVIEW OF SYSTEMS: No CV, , pulmonary, eye, ENT system symptoms on review. Reliability poor. MENTAL STATUS EXAM: Oriented to himself. Insight, judgment, recent and remote memory, attention, concentration, fund of knowledge poor, consistent with his diagnosis mentioned in my initial note. PLAN: No change from initial note. MAN Lucina VELEZ MD DR: ZEUS/citlali JOB#: [id number] / [id number]
--- NOTE | 2019-01-24 22:38 | PN ---
DATE: 01/22/2019 This late entry 01/22/2019 covers elements not covered in my initial note. SUBJECTIVE: I met with the patient in the evening of 01/22/2019. The patient slept 5-1/2 hours previous night. He has been somewhat difficult per nursing report, wandering, preoccupied with one of the male nursing staff, believed that this male staff has control about when he is discharged, wanting 25-50 motors, unable to figure out what this is. He does have fluent expressive aphasia, quite confused. Talking about money something in relationship with a male nursing staff, Mukesh. Received Zyprexa at 11:45 and 3:00 p.m., threw water at the male nursing staff at one point. REVIEW OF SYSTEMS: No CV, , pulmonary, eye, ENT system symptoms on review. Reliability poor. MENTAL STATUS EXAM: Oriented to himself. Insight, judgment, recent and remote memory, attention, concentration, fund of knowledge poor, consistent with his diagnosis mentioned in my initial note. PLAN: No change from initial note. Valproic acid level will be checked on the . May need to increase Depakote thereafter. Continue Risperdal, Remeron, Zoloft, Depakote Sprinkles, trazodone, Zyprexa p.r.n., Ativan p.r.n. Scheduled trazodone for now. MAN Lucina VELEZ MD DR: ZEUS/citlali JOB#: [id number] / [id number]
[2019-01-25 05:00] VITALS: BP 151/89
[2019-01-25] MEDS: ALBUTEROL SULFATE 2.5 MG/3 ML NEBU. NEB SCH ×4 (05:54→20:40)
[2019-01-25] MEDS: BUDESONIDE 0.5 MG/2 ML NEBU NEB SCH ×2 (08:00→20:40)
[2019-01-25] MEDS: CETIRIZINE HCL 10 MG TABLET PO SCH ×3 (08:06→19:46)
[2019-01-25] MEDS: SERTRALINE 100 MG TABLET. PO SCH (08:06)
[2019-01-25] MEDS: DIVALPROEX 125 MG CAP.SPRINK PO SCH ×2 (08:06→19:18)
[2019-01-25] MEDS: POTASSIUM CHLORIDE 20 MEQ TABLET.ER. PO SCH (08:06)
[2019-01-25] MEDS: FINASTERIDE 5 MG TABLET PO SCH (08:07)
[2019-01-25] MEDS: traZODone 50 MG TABLET. PO SCH ×3 (08:07→17:16)
[2019-01-25] MEDS: APIXABAN 5 MG TABLET. PO SCH ×3 (08:07→19:46)
[2019-01-25] MEDS: FUROSEMIDE 20 MG TABLET PO SCH (08:07)
[2019-01-25 15:53] VITALS: BP 130/81
[2019-01-25] MEDS: DIGOXIN 125 MCG TABLET PO SCH (17:17)
[2019-01-25] MEDS: MIRTAZAPINE 15 MG TABLET PO SCH (19:18)
[2019-01-25] MEDS: risperiDONE 1 MG TABLET. PO SCH (19:18)
[2019-01-25] MEDS: ATORVASTATIN CALCIUM 20 MG TABLET PO SCH ×2 (19:19→19:46)
[2019-01-25] MEDS: traZODone 50 MG TABLET. PO PRN (19:19)
[2019-01-25] MEDS ORDERED: DIVALPROEX 125 MG CAP.SPRINK PO SCH (21:00)
--- NOTE | 2019-01-25 22:28 | PDOC ---
Exam Note: Arjun Note: Please also refer to the separate dictated note~for this date of service dictated separately.~Patient seen individually. Discussed the patient with Nursing staff reviewed the chart.~Reviewed interim history and current functioning. Reviewed vital signs,~Labs/ Radiology~and current medications noted below. Continue current treatment with the changes noted in the dictated addendum note Assessment: Vital Signs/I&O: Vital Signs Date Time Temp Pulse Resp B/P (MAP) Pulse Ox O2 Delivery O2 Flow Rate FiO2 01/25/19 20:15 94 Room Air 01/25/19 17:17 71 130/81 01/25/19 15:53 98.3 16 I & O 01/24/19 01/24/19 01/25/19 14:59 22:59 06:59 Intake Total 600 ml 240 ml 240 ml Balance 600 ml 240 ml 240 ml Current Medications: I have reviewed the current psychotropics carefully including drug interactions. Risk benefit ratio favors no change other than as noted in my dictated progress note. 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
--- NOTE | 2019-01-25 23:35 | PN ---
DATE: 01/24/2019 PSYCHIATRIC PROGRESS NOTE This late entry 01/24/2019 covers elements not covered in my initial note. SUBJECTIVE: I met with the patient in the evening of 01/24/2019. The patient slept 6-1/2 hours previous night. He did well previous night. In the morning of 01/24/2019, it was difficult and he was resistive to taking his medications, took them later in pudding. LABORATORY DATA: WBC is 11.2. Valproic acid level 41. REVIEW OF SYSTEMS: No CV, , pulmonary, eye, ENT system symptoms on review. Reliability poor. MENTAL STATUS EXAM: Oriented to himself. Insight, judgment, recent and remote memory, attention, concentration, fund of knowledge poor, consistent with his diagnosis mentioned in my initial note. He does have fluent aphasia and as I was meeting with him, he was talking rapidly trying to express something totally unintelligible getting more agitated, but did redirect. LABORATORY DATA: Reviewed. IMPRESSION: Unchanged from initial note. PLAN: No change from initial note, but if agitation worsens, we will increase the Depakote to reach therapeutic level. MAN Lucina VELEZ MD DR: ZEUS/citlali JOB#: [id number] / [id number]
[2019-01-26] MEDS: traZODone 50 MG TABLET. PO PRN (00:44)
[2019-01-26] MEDS: ALBUTEROL SULFATE 2.5 MG/3 ML NEBU. NEB SCH ×4 (05:35→20:00)
[2019-01-26 06:21] VITALS: BP 158/93
[2019-01-26] MEDS: DIVALPROEX 125 MG CAP.SPRINK PO SCH ×2 (07:45→16:45)
[2019-01-26] MEDS: traZODone 50 MG TABLET. PO SCH ×3 (07:45→16:45)
[2019-01-26] MEDS: SERTRALINE 100 MG TABLET. PO SCH (07:46)
[2019-01-26] MEDS: CETIRIZINE HCL 10 MG TABLET PO SCH ×2 (07:46→20:59)
[2019-01-26] MEDS: APIXABAN 5 MG TABLET. PO SCH ×2 (07:46→20:59)
[2019-01-26] MEDS: POTASSIUM CHLORIDE 20 MEQ TABLET.ER. PO SCH (07:46)
[2019-01-26] MEDS: FUROSEMIDE 20 MG TABLET PO SCH (07:46)
[2019-01-26] MEDS: FINASTERIDE 5 MG TABLET PO SCH (07:46)
[2019-01-26] MEDS: BUDESONIDE 0.5 MG/2 ML NEBU NEB SCH ×2 (09:48→20:00)
[2019-01-26 16:13] VITALS: BP 112/67
[2019-01-26] MEDS: risperiDONE 1 MG TABLET. PO SCH (16:44)
[2019-01-26] MEDS: MIRTAZAPINE 15 MG TABLET PO SCH (16:44)
[2019-01-26] MEDS: DIGOXIN 125 MCG TABLET PO SCH (16:45)
[2019-01-26] MEDS: ATORVASTATIN CALCIUM 20 MG TABLET PO SCH (20:59)
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
--- NOTE | 2019-01-26 21:57 | PDOC ---
Exam Note: Arjun Note: Please also refer to the separate dictated note~for this date of service dictated separately.~Patient seen individually. Discussed the patient with Nursing staff reviewed the chart.~Reviewed interim history and current functioning. Reviewed vital signs,~Labs/ Radiology~and current medications noted below. Continue current treatment with the changes noted in the dictated addendum note Assessment: Vital Signs/I&O: Vital Signs Date Time Temp Pulse Resp B/P (MAP) Pulse Ox O2 Delivery O2 Flow Rate FiO2 01/26/19 20:07 94 Room Air 01/26/19 16:45 73 112/67 01/26/19 16:13 98.0 18 I & O 01/25/19 01/25/19 01/26/19 15:00 23:00 07:00 Intake Total 720 ml 120 ml 120 ml Balance 720 ml 120 ml 120 ml Current Medications: Meds: Current Medications Medications (Trade) Dose Ordered Sig/Lorenzo Route PRN Reason Start Time Stop Time Status Last Admin Dose Admin Divalproex Sodium (Depakote Sprinkles) 1,000 mg DAILYWSUP PO 01/26/19 17:00 01/26/19 16:45 Mirtazapine (Remeron) 15 mg DAILYWSUP PO 01/26/19 17:00 01/26/19 16:45 Risperidone (RisperDAL) 1 mg DAILYWSUP PO 01/26/19 17:00 01/26/19 16:45 I have reviewed the current psychotropics carefully including drug interactions. Risk benefit ratio favors no change other than as noted in my dictated progress note. 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
[2019-01-26] MEDS: traZODone 100 MG TABLET. PO PRN (22:18)
[2019-01-27] MEDS: ALBUTEROL SULFATE 2.5 MG/3 ML NEBU. NEB SCH ×4 (05:05→20:06)
[2019-01-27 05:54] VITALS: BP 167/76
[2019-01-27] MEDS: DIVALPROEX 125 MG CAP.SPRINK PO SCH ×2 (07:54→16:44)
[2019-01-27] MEDS: FINASTERIDE 5 MG TABLET PO SCH (07:55)
[2019-01-27] MEDS: APIXABAN 5 MG TABLET. PO SCH ×2 (07:55→20:15)
[2019-01-27] MEDS: POTASSIUM CHLORIDE 20 MEQ TABLET.ER. PO SCH (07:55)
[2019-01-27] MEDS: FUROSEMIDE 20 MG TABLET PO SCH (07:55)
[2019-01-27] MEDS: CETIRIZINE HCL 10 MG TABLET PO SCH ×2 (07:55→20:15)
[2019-01-27] MEDS: SERTRALINE 100 MG TABLET. PO SCH (07:55)
[2019-01-27] MEDS: traZODone 50 MG TABLET. PO SCH ×3 (07:56→16:44)
[2019-01-27] MEDS: BUDESONIDE 0.5 MG/2 ML NEBU NEB SCH ×2 (09:22→20:06)
[2019-01-27 15:56] VITALS: BP 122/73
[2019-01-27] MEDS: DIGOXIN 125 MCG TABLET PO SCH (16:44)
[2019-01-27] MEDS: MIRTAZAPINE 15 MG TABLET PO SCH (16:45)
[2019-01-27] MEDS: risperiDONE 1 MG TABLET. PO SCH (16:45)
[2019-01-27] MEDS: ATORVASTATIN CALCIUM 20 MG TABLET PO SCH (20:15)
[2019-01-27] MEDS: traZODone 100 MG TABLET. PO PRN (20:18)
--- NOTE | 2019-01-27 21:32 | PDOC ---
Exam Note: Arjun Note: Please also refer to the separate dictated note~for this date of service dictated separately.~Patient seen individually. Discussed the patient with Nursing staff reviewed the chart.~Reviewed interim history and current functioning. Reviewed vital signs,~Labs/ Radiology~and current medications noted below. Continue current treatment with the changes noted in the dictated addendum note Assessment: Vital Signs/I&O: Vital Signs Date Time Temp Pulse Resp B/P (MAP) Pulse Ox O2 Delivery O2 Flow Rate FiO2 01/27/19 20:09 95 Room Air 01/27/19 16:45 74 122/73 01/27/19 15:56 97.6 16 I & O 01/26/19 01/26/19 01/27/19 15:00 23:00 07:00 Intake Total 960 ml 720 ml Balance 960 ml 720 ml Current Medications: I have reviewed the current psychotropics carefully including drug interactions. Risk benefit ratio favors no change other than as noted in my dictated progress note. 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
--- NOTE | 2019-01-27 23:20 | PN ---
DATE: 01/26/2019 PYSCHIATRIC PROGRESS NOTE This is a late entry 01/26/2019, covers the elements not covered in my initial note. SUBJECTIVE: I met with the patient in the evening of 01/26/2019. The patient slept just one hour previous night. He spit out his medications at night and will change it to dinnertime as staff feel this would be more effective. Staff had called me as an emergency late at night on 01/25/2019 to make this change from PETRA Lee. He did receive Zyprexa p.r.n. after lunch at 1300 due to agitation then did better. REVIEW OF SYSTEMS: There is no CV, , pulmonary, eye, ENT system symptoms on review. Reliability is poor. MENTAL STATUS EXAMINATION: Oriented to himself. Insight, judgment, and recent and remote memory, attention, concentration, fund of knowledge poor, consistent with his diagnosis. He has fluent, expressive aphasia, very hyperverbal as I met with him, but lesser than before. LABORATORY DATA: Reviewed. ASSESSMENT: Major neurocognitive disorder, Alzheimer, vascular with delusions, depression, behavioral disturbance, anxiety disorder, unspecified; impulse control disorder, unspecified, rest unchanged. PLAN: Increase trazodone from 50 mg at bedtime p.r.n. to 100 mg at bedtime p.r.n., october repeat x 1. Continue rest of the psychotropics. Unchanged from initial note. MAN Lucina VELEZ MD DR: ZEUS/citlali JOB#: [id number] / [id number]
[2019-01-28] MEDS: ALBUTEROL SULFATE 2.5 MG/3 ML NEBU. NEB SCH ×4 (05:06→20:15)
[2019-01-28 05:50] VITALS: BP 151/72
[2019-01-28 06:56] LABS: BASO % 0 % (0-3); EOS # 0.2 x10^3/uL (0.0-0.7); EOS % 2 % (0-3); HEMATOCRIT 35.3 % (39.0-53.0); HEMOGLOBIN 11.8 g/dL (13.0-17.5); LYMPH # 1.9 x10^3/uL (1.0-4.8); LYMPH % 16 % (24-48); MEAN CORPUSCULAR HEMOGLOBIN 34 pg (25-35); MEAN CORPUSCULAR HGB CONC 33 g/dL (31-37); MEAN CORPUSCULAR VOLUME 102 fL (79-100); MONO # 1.1 x10^3/uL (0.0-1.1); MONO % 10 % (0-9); NEUT # 8.4 x10^3uL (1.8-7.7); NEUT % 72 % (31-73); PLATELET COUNT 269 x10^3/uL (140-400); RED BLOOD COUNT 3.45 x10^6/uL (4.30-5.70); RED CELL DISTRIBUTION WIDTH 13.8 % (11.5-14.5); WHITE BLOOD COUNT 11.6 x10^3/uL (4.0-11.0)
[2019-01-28 06:59] LABS: ALBUMIN 2.6 g/dL (3.4-5.0); ALBUMIN/GLOBULIN RATIO 0.7 (1.0-1.7); ALK PHOS 54 U/L (46-116); ALT (SGPT) 28 U/L (16-63); ANION GAP 4 (6-14); AST (SGOT) 22 U/L (15-37); BLOOD UREA NITROGEN 25 mg/dL (8-26); BUN/CREATININE RATIO 23 (6-20); CALCIUM 8.6 mg/dL (8.5-10.1); CARBON DIOXIDE 35 mmol/L (21-32); CHLORIDE 107 mmol/L (98-107); CREATININE 1.1 mg/dL (0.7-1.3); GFR 63.9; GLUCOSE 80 mg/dL (70-99); POTASSIUM 4.3 mmol/L (3.5-5.1); SODIUM 146 mmol/L (136-145); TOTAL BILIRUBIN 0.2 mg/dL (0.2-1.0); TOTAL PROTEIN 6.4 g/dL (6.4-8.2)
[2019-01-28 07:01] LABS: VAL ACID 49 mcg/mL (50-100)
[2019-01-28] MEDS: FUROSEMIDE 20 MG TABLET PO SCH (09:46)
[2019-01-28] MEDS: CETIRIZINE HCL 10 MG TABLET PO SCH ×2 (09:47→20:02)
[2019-01-28] MEDS: POTASSIUM CHLORIDE 20 MEQ TABLET.ER. PO SCH (09:47)
[2019-01-28] MEDS: SERTRALINE 100 MG TABLET. PO SCH (09:47)
[2019-01-28] MEDS: FINASTERIDE 5 MG TABLET PO SCH (09:47)
[2019-01-28] MEDS: DIVALPROEX 125 MG CAP.SPRINK PO SCH ×2 (09:47→17:25)
[2019-01-28] MEDS: traZODone 50 MG TABLET. PO SCH ×3 (09:47→17:25)
[2019-01-28] MEDS: APIXABAN 5 MG TABLET. PO SCH ×2 (09:47→20:02)
[2019-01-28] MEDS: BUDESONIDE 0.5 MG/2 ML NEBU NEB SCH ×2 (11:09→20:11)
[2019-01-28 16:35] VITALS: BP 136/65
[2019-01-28] MEDS: MIRTAZAPINE 15 MG TABLET PO SCH (17:24)
[2019-01-28] MEDS: DIGOXIN 125 MCG TABLET PO SCH (17:24)
[2019-01-28] MEDS: risperiDONE 1 MG TABLET. PO SCH (17:25)
[2019-01-28] MEDS: ATORVASTATIN CALCIUM 20 MG TABLET PO SCH (20:02)
--- NOTE | 2019-01-28 21:38 | PDOC ---
Exam Note: Arjun Note: Please also refer to the separate dictated note~for this date of service dictated separately.~Patient seen individually. Discussed the patient with Nursing staff reviewed the chart.~Reviewed interim history and current functioning. Reviewed vital signs,~Labs/ Radiology~and current medications noted below. Continue current treatment with the changes noted in the dictated addendum note Assessment: Vital Signs/I&O: Vital Signs Date Time Temp Pulse Resp B/P (MAP) Pulse Ox O2 Delivery O2 Flow Rate FiO2 01/28/19 20:19 96 Room Air 01/28/19 17:25 72 136/65 01/28/19 16:35 97.4 16 I & O 01/27/19 01/27/19 01/28/19 15:00 23:00 07:00 Intake Total 1080 ml 360 ml 240 ml Balance 1080 ml 360 ml 240 ml Labs: Laboratory Tests Test 01/28/19 06:26 White Blood Count 11.6 x10^3/uL (4.0-11.0) H Red Blood Count 3.45 x10^6/uL (4.30-5.70) L Hemoglobin 11.8 g/dL (13.0-17.5) L Hematocrit 35.3 % (39.0-53.0) L Mean Corpuscular Volume 102 fL (79-100) H Mean Corpuscular Hemoglobin 34 pg (25-35) Mean Corpuscular Hemoglobin Concent 33 g/dL (31-37) Red Cell Distribution Width 13.8 % (11.5-14.5) Platelet Count 269 x10^3/uL (140-400) Neutrophils (%) (Auto) 72 % (31-73) Lymphocytes (%) (Auto) 16 % (24-48) L Monocytes (%) (Auto) 10 % (0-9) H Eosinophils (%) (Auto) 2 % (0-3) Basophils (%) (Auto) 0 % (0-3) Neutrophils # (Auto) 8.4 x10^3uL (1.8-7.7) H Lymphocytes # (Auto) 1.9 x10^3/uL (1.0-4.8) Monocytes # (Auto) 1.1 x10^3/uL (0.0-1.1) Eosinophils # (Auto) 0.2 x10^3/uL (0.0-0.7) Basophils # (Auto) 0.0 x10^3/uL (0.0-0.2) Sodium Level 146 mmol/L (136-145) H Potassium Level 4.3 mmol/L (3.5-5.1) Chloride Level 107 mmol/L (98-107) Carbon Dioxide Level 35 mmol/L (21-32) H Anion Gap 4 (6-14) L Blood Urea Nitrogen 25 mg/dL (8-26) Creatinine 1.1 mg/dL (0.7-1.3) Estimated GFR (Cockcroft-Gault) 63.9 BUN/Creatinine Ratio 23 (6-20) H Glucose Level 80 mg/dL (70-99) Calcium Level 8.6 mg/dL (8.5-10.1) Total Bilirubin 0.2 mg/dL (0.2-1.0) Aspartate Amino Transferase (AST) 22 U/L (15-37) Alanine Aminotransferase (ALT) 28 U/L (16-63) Alkaline Phosphatase 54 U/L (46-116) Total Protein 6.4 g/dL (6.4-8.2) Albumin 2.6 g/dL (3.4-5.0) L Albumin/Globulin Ratio 0.7 (1.0-1.7) L Valproic Acid Level 49 mcg/mL (50-100) L Valproic Acid Last Dose Date 01/27/2019 Valproic Acid Last Dose Time 2100 Current Medications: I have reviewed the current psychotropics carefully including drug interactions. Risk benefit ratio favors no change other than as noted in my dictated progress note. 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
[2019-01-29] MEDS: ALBUTEROL SULFATE 2.5 MG/3 ML NEBU. NEB SCH ×4 (05:10→20:00)
[2019-01-29 05:47] VITALS: BP 174/80
[2019-01-29] MEDS: POTASSIUM CHLORIDE 20 MEQ TABLET.ER. PO SCH (08:23)
[2019-01-29] MEDS: APIXABAN 5 MG TABLET. PO SCH ×2 (08:24→19:38)
[2019-01-29] MEDS: traZODone 50 MG TABLET. PO SCH ×3 (08:24→17:02)
[2019-01-29] MEDS: SERTRALINE 100 MG TABLET. PO SCH (08:25)
[2019-01-29] MEDS: FINASTERIDE 5 MG TABLET PO SCH (08:25)
[2019-01-29] MEDS: CETIRIZINE HCL 10 MG TABLET PO SCH ×2 (08:25→19:39)
[2019-01-29] MEDS: FUROSEMIDE 20 MG TABLET PO SCH (08:25)
[2019-01-29] MEDS: DIVALPROEX 125 MG CAP.SPRINK PO SCH ×2 (08:28→17:01)
[2019-01-29] MEDS: BUDESONIDE 0.5 MG/2 ML NEBU NEB SCH ×2 (09:40→20:00)
[2019-01-29 16:29] VITALS: BP 146/77
[2019-01-29] MEDS: MIRTAZAPINE 15 MG TABLET PO SCH (17:01)
[2019-01-29] MEDS: risperiDONE 1 MG TABLET. PO SCH (17:01)
[2019-01-29] MEDS: DIGOXIN 125 MCG TABLET PO SCH (17:02)
[2019-01-29] MEDS: ATORVASTATIN CALCIUM 20 MG TABLET PO SCH (19:39)
--- NOTE | 2019-01-29 21:41 | PDOC ---
Exam Note: Arjun Note: Please also refer to the separate dictated note~for this date of service dictated separately.~Patient seen individually. Discussed the patient with Nursing staff reviewed the chart.~Reviewed interim history and current functioning. Reviewed vital signs,~Labs/ Radiology~and current medications noted below. Continue current treatment with the changes noted in the dictated addendum note Assessment: Vital Signs/I&O: Vital Signs Date Time Temp Pulse Resp B/P (MAP) Pulse Ox O2 Delivery O2 Flow Rate FiO2 01/29/19 17:02 80 146/77 01/29/19 16:29 97.6 16 94 01/29/19 15:43 Room Air I & O 01/28/19 01/28/19 01/29/19 15:00 23:00 07:00 Intake Total 440 ml 240 ml 360 ml Balance 440 ml 240 ml 360 ml Current Medications: Meds: Current Medications Medications (Trade) Dose Ordered Sig/Lorenzo Route PRN Reason Start Time Stop Time Status Last Admin Dose Admin Divalproex Sodium (Depakote Sprinkles) 750 mg DAILY PO 01/29/19 09:00 01/29/19 08:28 I have reviewed the current psychotropics carefully including drug interactions. Risk benefit ratio favors no change other than as noted in my dictated progress note. 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
--- NOTE | 2019-01-29 23:08 | PN ---
DATE: 01/28/2019 This late entry 01/28/2019 covers elements not covered in my initial note. SUBJECTIVE: I met with the patient evening of 01/28/2019 and staffed at a treatment team meeting with the entire team in the morning. Reviewed the patient's history, diagnosis, discharge plans to [place] at length including transportation issues at treatment team meeting. Sleeping about 6 hours, appetite 75-100%. Valproic acid level 49. Sodium 146. WBC 11.6. He has been wandering, speech is fluent consequent to his expressive aphasia, garbled. REVIEW OF SYSTEMS: No CV, , pulmonary, eye, ENT system symptoms on review. Reliability poor. MENTAL STATUS EXAMINATION: Oriented to himself. Insight, judgment, recent and remote memory, attention, concentration, fund of knowledge poor, consistent with his diagnosis mentioned in my initial note. PLAN: No change from initial note, but since valproic acid level subtherapeutic at 49, we will increase the Depakote from 500 mg a.m. and 1000 mg at 1700 to 750 mg a.m. and continue 1000 mg at 1700. Check CBC, CMP, valproic acid level in 3 days. Adjust further as clinically indicated. MAN Lucina VELEZ MD DR: ZEUS/citlali JOB#: [id number] / [id number]
--- NOTE | 2019-01-29 23:12 | PN ---
DATE: 01/27/2019 PROGRESS NOTE This late entry 01/27/2019 covers elements not covered in my initial note. SUBJECTIVE: I met with the patient evening of 01/27/2019. The patient slept 5-1/2 hours previous night. He takes his meds crushed in ice cream or with the 5:00 p.m. dinner. He does better with this. He slept 10 in the morning, somewhat crooked and then was complaining of neck pain later. Agitation is better, but he is still confused with expressive fluent aphasia. REVIEW OF SYSTEMS: No CV, , pulmonary, eye, ENT system symptoms on review. Reliability poor. MENTAL STATUS EXAM: Oriented to himself. Insight, judgment, recent and remote memory, attention, concentration, fund of knowledge poor, consistent with his diagnosis mentioned in my initial note. PLAN: No change from initial note. MAN Lucina VELEZ MD DR: ZEUS/citlali JOB#: [id number] / [id number]
[2019-01-30] MEDS: ALBUTEROL SULFATE 2.5 MG/3 ML NEBU. NEB SCH ×4 (05:40→20:12)
[2019-01-30 06:21] VITALS: BP 167/84
[2019-01-30] MEDS: POTASSIUM CHLORIDE 20 MEQ TABLET.ER. PO SCH ×2 (07:49→08:00)
[2019-01-30] MEDS: DIVALPROEX 125 MG CAP.SPRINK PO SCH ×3 (07:50→17:06)
[2019-01-30] MEDS: FINASTERIDE 5 MG TABLET PO SCH ×2 (07:51→09:00)
[2019-01-30] MEDS: APIXABAN 5 MG TABLET. PO SCH ×3 (07:51→19:42)
[2019-01-30] MEDS: traZODone 50 MG TABLET. PO SCH ×4 (07:51→17:07)
[2019-01-30] MEDS: FUROSEMIDE 20 MG TABLET PO SCH ×2 (07:51→09:00)
[2019-01-30] MEDS: CETIRIZINE HCL 10 MG TABLET PO SCH ×3 (07:51→19:41)
[2019-01-30] MEDS: SERTRALINE 100 MG TABLET. PO SCH ×2 (07:51→09:00)
[2019-01-30] MEDS: BUDESONIDE 0.5 MG/2 ML NEBU NEB SCH ×2 (11:25→20:12)
[2019-01-30 16:09] VITALS: BP 167/80
[2019-01-30] MEDS: DIGOXIN 125 MCG TABLET PO SCH (17:07)
[2019-01-30] MEDS: MIRTAZAPINE 15 MG TABLET PO SCH (17:07)
[2019-01-30] MEDS: risperiDONE 1 MG TABLET. PO SCH (17:07)
[2019-01-30] MEDS: ATORVASTATIN CALCIUM 20 MG TABLET PO SCH (19:41)
[2019-01-30 22:34] LABS: BILIRUBIN,URINE NEG (NEG); CLARITY,URINE CLEAR; COLOR,URINE YELLOW; GLUCOSE,URINE NEG (NEG)
[2019-01-30 22:35] LABS: BACTERIA,URINE 0 /HPF (0-FEW); HYALINE CASTS, URINE OCC /HPF; NITRITE,URINE NEG (NEG); RBC,URINE 0 /HPF (0-2); UROBILINOGEN,URINE 0.2 mg/dL (0.2 mg/dL); WBC,URINE RARE /HPF (0-4)
--- NOTE | 2019-01-30 22:59 | PDOC ---
Exam Note: Arjun Note: Please also refer to the separate dictated note~for this date of service dictated separately.~Patient seen individually. Discussed the patient with Nursing staff reviewed the chart.~Reviewed interim history and current functioning. Reviewed vital signs,~Labs/ Radiology~and current medications noted below. Continue current treatment with the changes noted in the dictated addendum note Assessment: Vital Signs/I&O: Vital Signs Date Time Temp Pulse Resp B/P (MAP) Pulse Ox O2 Delivery O2 Flow Rate FiO2 01/30/19 20:14 95 Room Air 01/30/19 17:07 93 167/80 01/30/19 16:09 97.6 20 I & O 01/29/19 01/29/19 01/30/19 15:00 23:00 07:00 Intake Total 840 ml 480 ml Balance 840 ml 480 ml Labs: Laboratory Tests Test 01/30/19 22:04 Urine Collection Type Unknown Urine Color Yellow Urine Clarity Clear Urine pH 7.5 Urine Specific [place] 1.015 Urine Protein Trace (NEG-TRACE) Urine Glucose (UA) Neg mg/dL (NEG) Urine Ketones (Stick) 15 mg/dL (NEG) Urine Blood Neg (NEG) Urine Nitrite Neg (NEG) Urine Bilirubin Neg (NEG) Urine Urobilinogen Dipstick 0.2 mg/dL (0.2 mg/dL) Urine Leukocyte Esterase Neg (NEG) Urine RBC 0 /HPF (0-2) Urine WBC Rare /HPF (0-4) Urine Squamous Epithelial Cells None /LPF Urine Bacteria 0 /HPF (0-FEW) Urine Hyaline Casts Occ /HPF Current Medications: I have reviewed the current psychotropics carefully including drug interactions. Risk benefit ratio favors no change other than as noted in my dictated progress note. 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
[2019-01-31] MEDS: ALBUTEROL SULFATE 2.5 MG/3 ML NEBU. NEB SCH ×4 (05:02→20:16)
[2019-01-31 05:29] VITALS: BP 163/83
[2019-01-31] MEDS: traZODone 50 MG TABLET. PO SCH ×3 (08:07→17:06)
[2019-01-31] MEDS: FUROSEMIDE 20 MG TABLET PO SCH (08:08)
[2019-01-31] MEDS: FINASTERIDE 5 MG TABLET PO SCH (08:09)
[2019-01-31] MEDS: SERTRALINE 100 MG TABLET. PO SCH (08:09)
[2019-01-31] MEDS: POTASSIUM CHLORIDE 20 MEQ TABLET.ER. PO SCH (08:09)
[2019-01-31] MEDS: APIXABAN 5 MG TABLET. PO SCH ×2 (08:10→20:18)
[2019-01-31] MEDS: DIVALPROEX 125 MG CAP.SPRINK PO SCH ×2 (08:10→17:05)
[2019-01-31] MEDS: CETIRIZINE HCL 10 MG TABLET PO SCH ×2 (08:10→20:18)
[2019-01-31] MEDS: BUDESONIDE 0.5 MG/2 ML NEBU NEB SCH ×2 (10:55→20:16)
[2019-01-31 15:37] VITALS: BP 143/75
[2019-01-31] MEDS: risperiDONE 1 MG TABLET. PO SCH (17:06)
[2019-01-31] MEDS: MIRTAZAPINE 15 MG TABLET PO SCH (17:06)
[2019-01-31] MEDS: DIGOXIN 125 MCG TABLET PO SCH (17:06)
[2019-01-31] MEDS: ATORVASTATIN CALCIUM 20 MG TABLET PO SCH (20:19)
--- NOTE | 2019-01-31 21:35 | PDOC ---
Exam Note: Arjun Note: Please also refer to the separate dictated note~for this date of service dictated separately.~Patient seen individually. Discussed the patient with Nursing staff reviewed the chart.~Reviewed interim history and current functioning. Reviewed vital signs,~Labs/ Radiology~and current medications noted below. Continue current treatment with the changes noted in the dictated addendum note Assessment: Vital Signs/I&O: Vital Signs Date Time Temp Pulse Resp B/P (MAP) Pulse Ox O2 Delivery O2 Flow Rate FiO2 01/31/19 20:19 96 Room Air 01/31/19 17:06 84 143/75 01/31/19 15:37 97.9 20 I & O 01/30/19 01/30/19 01/31/19 15:00 23:00 07:00 Intake Total 720 ml 240 ml 120 ml Balance 720 ml 240 ml 120 ml Labs: Laboratory Tests Test 01/30/19 22:04 Urine Collection Type Unknown Urine Color Yellow Urine Clarity Clear Urine pH 7.5 Urine Specific [place] 1.015 Urine Protein Trace (NEG-TRACE) Urine Glucose (UA) Neg mg/dL (NEG) Urine Ketones (Stick) 15 mg/dL (NEG) Urine Blood Neg (NEG) Urine Nitrite Neg (NEG) Urine Bilirubin Neg (NEG) Urine Urobilinogen Dipstick 0.2 mg/dL (0.2 mg/dL) Urine Leukocyte Esterase Neg (NEG) Urine RBC 0 /HPF (0-2) Urine WBC Rare /HPF (0-4) Urine Squamous Epithelial Cells None /LPF Urine Bacteria 0 /HPF (0-FEW) Urine Hyaline Casts Occ /HPF Current Medications: I have reviewed the current psychotropics carefully including drug interactions. Risk benefit ratio favors no change other than as noted in my dictated progress note. 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
--- NOTE | 2019-02-01 00:15 | PN ---
DATE: 01/29/2019 PSYCHIATRIC PROGRESS NOTE This late entry 01/29/2019 covers elements not covered in my initial note. SUBJECTIVE: I met with the patient evening of 01/29/2019. The patient slept 5-3/4 hours previous night. Per PETRA Olvera, he has been confused. Speech is word salad, somewhat anxious, restless at times. REVIEW OF SYSTEMS: No CV, , pulmonary, eye, ENT system symptoms on review. Reliability poor. MENTAL STATUS EXAM: Oriented to himself. Insight, judgment, recent and remote memory, attention, concentration, fund of knowledge poor, consistent with his diagnosis. He does have fluent aphasia. LABORATORY DATA: Reviewed. IMPRESSION: Unchanged from initial note. PLAN: No change from initial note. MAN Lucina VELEZ MD DR: ZEUS/citlali JOB#: [id number] / [id number]
--- NOTE | 2019-02-01 00:20 | PN ---
DATE: 01/30/2019 PSYCHIATRY PROGRESS NOTE This late entry, 01/30, covers elements not covered in my initial note. SUBJECTIVE: I met with the patient evening of 01/30. The patient slept 6-1/4 hours previous night. Per nursing report, the patient had a "rough day." He has been wandering and more agitated with his expressive aphasia, defecated in another patient's room and then urinated on a chair in the hallway. He also urinated on the floor in another patient's room and defecated once again in yet another room. Refusing medications. We will go ahead and check a UA, make sure he does not have a UTI worsening his agitation and confusion. REVIEW OF SYSTEMS: No CV, , pulmonary, eye, ENT system symptoms on review. Reliability poor. MENTAL STATUS EXAM: Oriented to himself. Insight, judgment, recent and remote memory, attention, concentration, fund of knowledge poor, consistent with his diagnosis mentioned in my initial note. PLAN: Check a UA as noted. Maintain Zoloft, Risperdal, Remeron, Depakote along with trazodone scheduled and at bedtime, Zyprexa p.r.n., adjust further as clinically indicated. EMILE VELEZ MD DR: ZEUS/citlali JOB#: [id number] / [id number]
[2019-02-01] MEDS: ALBUTEROL SULFATE 2.5 MG/3 ML NEBU. NEB SCH ×5 (04:15→19:59)
[2019-02-01 06:06] VITALS: BP 134/66
[2019-02-01 07:23] LABS: BASO % 0 % (0-3); EOS # 0.2 x10^3/uL (0.0-0.7); EOS % 2 % (0-3); HEMATOCRIT 35.3 % (39.0-53.0); HEMOGLOBIN 11.8 g/dL (13.0-17.5); LYMPH # 1.6 x10^3/uL (1.0-4.8); LYMPH % 14 % (24-48); MEAN CORPUSCULAR HEMOGLOBIN 34 pg (25-35); MEAN CORPUSCULAR HGB CONC 34 g/dL (31-37); MEAN CORPUSCULAR VOLUME 103 fL (79-100); MONO # 1.1 x10^3/uL (0.0-1.1); MONO % 10 % (0-9); NEUT % 74 % (31-73); PLATELET COUNT 244 x10^3/uL (140-400); RED BLOOD COUNT 3.44 x10^6/uL (4.30-5.70); RED CELL DISTRIBUTION WIDTH 14.4 % (11.5-14.5); WHITE BLOOD COUNT 10.8 x10^3/uL (4.0-11.0)
[2019-02-01 07:36] LABS: ALBUMIN 2.4 g/dL (3.4-5.0); ALBUMIN/GLOBULIN RATIO 0.7 (1.0-1.7); ALK PHOS 48 U/L (46-116); ALT (SGPT) 24 U/L (16-63); ANION GAP 3 (6-14); AST (SGOT) 20 U/L (15-37); BLOOD UREA NITROGEN 24 mg/dL (8-26); BUN/CREATININE RATIO 22 (6-20); CALCIUM 8.3 mg/dL (8.5-10.1); CARBON DIOXIDE 35 mmol/L (21-32); CHLORIDE 109 mmol/L (98-107); CREATININE 1.1 mg/dL (0.7-1.3); GFR 63.9; GLUCOSE 81 mg/dL (70-99); POTASSIUM 4.1 mmol/L (3.5-5.1); SODIUM 147 mmol/L (136-145); TOTAL BILIRUBIN 0.2 mg/dL (0.2-1.0); TOTAL PROTEIN 5.9 g/dL (6.4-8.2)
[2019-02-01 07:43] LABS: VAL ACID 45 mcg/mL (50-100)
[2019-02-01] MEDS: DIVALPROEX 125 MG CAP.SPRINK PO SCH ×2 (08:04→17:04)
[2019-02-01] MEDS: SERTRALINE 100 MG TABLET. PO SCH (08:04)
[2019-02-01] MEDS: CETIRIZINE HCL 10 MG TABLET PO SCH ×2 (08:04→19:40)
[2019-02-01] MEDS: FINASTERIDE 5 MG TABLET PO SCH (08:04)
[2019-02-01] MEDS: POTASSIUM CHLORIDE 20 MEQ TABLET.ER. PO SCH (08:05)
[2019-02-01] MEDS: FUROSEMIDE 20 MG TABLET PO SCH (08:05)
[2019-02-01] MEDS: traZODone 50 MG TABLET. PO SCH ×3 (08:05→17:05)
[2019-02-01] MEDS: APIXABAN 5 MG TABLET. PO SCH ×2 (08:05→19:40)
[2019-02-01] MEDS: BUDESONIDE 0.5 MG/2 ML NEBU NEB SCH ×2 (10:17→20:00)
[2019-02-01 16:10] VITALS: BP 129/66
[2019-02-01] MEDS: risperiDONE 1 MG TABLET. PO SCH (17:03)
[2019-02-01] MEDS: MIRTAZAPINE 15 MG TABLET PO SCH (17:03)
[2019-02-01] MEDS: DIGOXIN 125 MCG TABLET PO SCH (17:03)
[2019-02-01] MEDS: ATORVASTATIN CALCIUM 20 MG TABLET PO SCH (19:40)
--- NOTE | 2019-02-01 21:44 | PDOC ---
Exam Note: Arjun Note: Please also refer to the separate dictated note~for this date of service dictated separately.~Patient seen individually. Discussed the patient with Nursing staff reviewed the chart.~Reviewed interim history and current functioning. Reviewed vital signs,~Labs/ Radiology~and current medications noted below. Continue current treatment with the changes noted in the dictated addendum note Assessment: Vital Signs/I&O: Vital Signs Date Time Temp Pulse Resp B/P (MAP) Pulse Ox O2 Delivery O2 Flow Rate FiO2 02/01/19 20:00 95 Room Air 02/01/19 17:05 81 129/66 02/01/19 16:10 97.3 18 I & O 01/31/19 01/31/19 02/01/19 14:59 22:59 06:59 Intake Total 240 ml 600 ml Balance 240 ml 600 ml Labs: Laboratory Tests Test 02/01/19 06:59 White Blood Count 10.8 x10^3/uL (4.0-11.0) Red Blood Count 3.44 x10^6/uL (4.30-5.70) L Hemoglobin 11.8 g/dL (13.0-17.5) L Hematocrit 35.3 % (39.0-53.0) L Mean Corpuscular Volume 103 fL (79-100) H Mean Corpuscular Hemoglobin 34 pg (25-35) Mean Corpuscular Hemoglobin Concent 34 g/dL (31-37) Red Cell Distribution Width 14.4 % (11.5-14.5) Platelet Count 244 x10^3/uL (140-400) Neutrophils (%) (Auto) 74 % (31-73) H Lymphocytes (%) (Auto) 14 % (24-48) L Monocytes (%) (Auto) 10 % (0-9) H Eosinophils (%) (Auto) 2 % (0-3) Basophils (%) (Auto) 0 % (0-3) Neutrophils # (Auto) 8.0 x10^3uL (1.8-7.7) H Lymphocytes # (Auto) 1.6 x10^3/uL (1.0-4.8) Monocytes # (Auto) 1.1 x10^3/uL (0.0-1.1) Eosinophils # (Auto) 0.2 x10^3/uL (0.0-0.7) Basophils # (Auto) 0.0 x10^3/uL (0.0-0.2) Sodium Level 147 mmol/L (136-145) H Potassium Level 4.1 mmol/L (3.5-5.1) Chloride Level 109 mmol/L (98-107) H Carbon Dioxide Level 35 mmol/L (21-32) H Anion Gap 3 (6-14) L Blood Urea Nitrogen 24 mg/dL (8-26) Creatinine 1.1 mg/dL (0.7-1.3) Estimated GFR (Cockcroft-Gault) 63.9 BUN/Creatinine Ratio 22 (6-20) H Glucose Level 81 mg/dL (70-99) Calcium Level 8.3 mg/dL (8.5-10.1) L Total Bilirubin 0.2 mg/dL (0.2-1.0) Aspartate Amino Transferase (AST) 20 U/L (15-37) Alanine Aminotransferase (ALT) 24 U/L (16-63) Alkaline Phosphatase 48 U/L (46-116) Total Protein 5.9 g/dL (6.4-8.2) L Albumin 2.4 g/dL (3.4-5.0) L Albumin/Globulin Ratio 0.7 (1.0-1.7) L Valproic Acid Level 45 mcg/mL (50-100) L Valproic Acid Last Dose Date 01/31/19 Valproic Acid Last Dose Time 2100 Current Medications: I have reviewed the current psychotropics carefully including drug interactions. Risk benefit ratio favors no change other than as noted in my dictated progress note. 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
--- NOTE | 2019-02-01 22:36 | PN ---
DATE: 01/31/2019 PROGRESS NOTE This late entry of 01/31/2019 covers elements not covered in my initial note. SUBJECTIVE: I met with the patient in the evening of 01/31/2019. The patient slept 5-3/4 hours previous night. He has been confused, but better, less irritable, less labile. REVIEW OF SYSTEMS: No CV, , pulmonary, eye, ENT system symptoms on review. Reliability poor. MENTAL STATUS EXAM: Oriented to himself. Insight, judgment, recent and remote memory, attention, concentration, fund of knowledge poor, consistent with his diagnosis mentioned in my initial note. PLAN: No change from initial note. MAN Lucina VELEZ MD DR: ZEUS/citlali JOB#: [id number] / [id number]
[2019-02-02] MEDS: ALBUTEROL SULFATE 2.5 MG/3 ML NEBU. NEB SCH ×4 (05:20→21:54)
[2019-02-02 06:14] VITALS: BP 169/83
[2019-02-02] MEDS: CETIRIZINE HCL 10 MG TABLET PO SCH ×2 (07:52→20:18)
[2019-02-02] MEDS: FUROSEMIDE 20 MG TABLET PO SCH (07:53)
[2019-02-02] MEDS: SERTRALINE 100 MG TABLET. PO SCH (07:53)
[2019-02-02] MEDS: traZODone 50 MG TABLET. PO SCH ×3 (07:53→17:31)
[2019-02-02] MEDS: FINASTERIDE 5 MG TABLET PO SCH (07:53)
[2019-02-02] MEDS: POTASSIUM CHLORIDE 20 MEQ TABLET.ER. PO SCH (07:53)
[2019-02-02] MEDS: APIXABAN 5 MG TABLET. PO SCH ×2 (07:53→20:18)
[2019-02-02] MEDS: DIVALPROEX 125 MG CAP.SPRINK PO SCH ×2 (07:55→17:31)
[2019-02-02] MEDS: BUDESONIDE 0.5 MG/2 ML NEBU NEB SCH ×2 (11:07→21:54)
[2019-02-02 15:54] VITALS: BP 143/71
[2019-02-02] MEDS: DIGOXIN 125 MCG TABLET PO SCH (17:30)
[2019-02-02] MEDS: risperiDONE 1 MG TABLET. PO SCH (17:31)
[2019-02-02] MEDS: MIRTAZAPINE 15 MG TABLET PO SCH (17:31)
[2019-02-02] MEDS: ATORVASTATIN CALCIUM 20 MG TABLET PO SCH (20:18)
--- NOTE | 2019-02-02 21:53 | PDOC ---
Exam Note: Arjun Note: Please also refer to the separate dictated note~for this date of service dictated separately.~Patient seen individually. Discussed the patient with Nursing staff reviewed the chart.~Reviewed interim history and current functioning. Reviewed vital signs,~Labs/ Radiology~and current medications noted below. Continue current treatment with the changes noted in the dictated addendum note Assessment: Vital Signs/I&O: Vital Signs Date Time Temp Pulse Resp B/P (MAP) Pulse Ox O2 Delivery O2 Flow Rate FiO2 02/02/19 20:44 96 Room Air 02/02/19 17:31 73 143/71 02/02/19 15:54 97.1 20 I & O 02/01/19 02/01/19 02/02/19 15:00 23:00 07:00 Intake Total 360 ml 240 ml 240 ml Balance 360 ml 240 ml 240 ml Current Medications: Meds: Current Medications Medications (Trade) Dose Ordered Sig/Lorenzo Route PRN Reason Start Time Stop Time Status Last Admin Dose Admin Divalproex Sodium (Depakote Sprinkles) 1,000 mg DAILY PO 02/02/19 09:00 02/02/19 07:55 I have reviewed the current psychotropics carefully including drug interactions. Risk benefit ratio favors no change other than as noted in my dictated progress note. 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
--- NOTE | 2019-02-02 23:57 | PN ---
DATE: 02/01/2019 PSYCHIATRIC PROGRESS NOTE This late entry, 02/01/2019, covers elements not covered in my initial note. SUBJECTIVE: I met with the patient in the evening of 02/01/2019. The patient slept 7-1/2 hours previous night. Reportedly, he has had a good day, less wandering, less agitation, cooperative with medications and food. Valproic acid level subtherapeutic at 45. REVIEW OF SYSTEMS: No CV, , pulmonary, eye, ENT system symptoms on review. Reliability poor. MENTAL STATUS EXAM: Oriented to himself. Insight, judgment, recent and remote memory, attention, concentration, fund of knowledge poor, consistent with his diagnosis mentioned in my initial note. PLAN: I had a lengthy review of the patient's psychotropics. Despite the fact that he is doing better, I would like to adjust his valproic acid to reach a therapeutic level, especially since he will be going to a new facility and traveling in the interim down to [place] with family. He is currently on Depakote Sprinkle 750 mg in the morning and 1000 mg in the evening and we will increase it to 1000 mg twice a day. Check CBC, CMP, valproic acid level, ammonia level in 3 days. Continue rest of the psychotropics unchanged and possible transition to [facility] on 02/04/2019. MAN Lucina VELEZ MD DR: ZEUS/citlali JOB#: [id number] / [id number]
[2019-02-03] MEDS ORDERED: ACET325T21 PO (02:53)
[2019-02-03] MEDS ORDERED: DIVA125C2 PO ×2 (02:55→02:56)
[2019-02-03] MEDS ORDERED: LORA2ORA8 SL (02:56)
[2019-02-03] MEDS ORDERED: MAGN2400 PO (02:57)
[2019-02-03] MEDS ORDERED: METH29OI TP (02:57)
[2019-02-03] MEDS ORDERED: MAG355OR17 PO (02:57)
[2019-02-03] MEDS ORDERED: OLAN5TAB5 PO (02:58)
[2019-02-03] MEDS ORDERED: MIRT15TA3 PO (02:58)
[2019-02-03] MEDS ORDERED: SERT100T PO (02:59)
[2019-02-03] MEDS ORDERED: RISP1TAB3 PO (02:59)
[2019-02-03] MEDS ORDERED: TRAZ-120 PO ×2 (03:01)
[2019-02-03] MEDS ORDERED: TRAZ-86 PO (03:02)
[2019-02-03] MEDS: ALBUTEROL SULFATE 2.5 MG/3 ML NEBU. NEB SCH (06:02)
[2019-02-03 06:19] VITALS: BP 131/72
[2019-02-03] MEDS: FUROSEMIDE 20 MG TABLET PO SCH (08:00)
[2019-02-03] MEDS: SERTRALINE 100 MG TABLET. PO SCH (08:00)
[2019-02-03] MEDS: FINASTERIDE 5 MG TABLET PO SCH (08:00)
[2019-02-03] MEDS: DIVALPROEX 125 MG CAP.SPRINK PO SCH (08:00)
[2019-02-03] MEDS: traZODone 50 MG TABLET. PO SCH (08:01)
[2019-02-03] MEDS: APIXABAN 5 MG TABLET. PO SCH (08:01)
[2019-02-03] MEDS: POTASSIUM CHLORIDE 20 MEQ TABLET.ER. PO SCH (08:01)
[2019-02-03] MEDS: CETIRIZINE HCL 10 MG TABLET PO SCH (08:01)
[2019-02-03 08:02] VITALS: BP 131/72
[2019-02-03] MEDS: BUDESONIDE 0.5 MG/2 ML NEBU NEB SCH (09:31)
--- NOTE | 2019-02-03 21:33 | PDOC ---
Exam Note: Arjun Note: Please also refer to the separate dictated note~for this date of service dictated separately.~Patient seen individually. Discussed the patient with Nursing staff reviewed the chart.~Reviewed interim history and current functioning. Reviewed vital signs,~Labs/ Radiology~and current medications noted below. Continue current treatment with the changes noted in the dictated addendum note Assessment: Vital Signs/I&O: Vital Signs Date Time Temp Pulse Resp B/P (MAP) Pulse Ox O2 Delivery O2 Flow Rate FiO2 02/03/19 08:03 77 131/72 02/03/19 06:19 97.5 18 94 Room Air I & O 02/02/19 02/02/19 02/03/19 14:59 22:59 06:59 Intake Total 600 ml 240 ml 240 ml Balance 600 ml 240 ml 240 ml Current Medications: Meds: Current Medications Medications (Trade) Dose Ordered Sig/Lorenzo Route PRN Reason Start Time Stop Time Status Last Admin Dose Admin Olanzapine (ZyPREXA ZYDIS) 5 mg ONCE ONCE PO 02/03/19 09:30 02/03/19 09:31 DC 02/03/19 09:33 I have reviewed the current psychotropics carefully including drug interactions. Risk benefit ratio favors no change other than as noted in my dictated progress note. Diagnosis: Problems: (1) Anxiety disorder (2) Dementia in Alzheimer's disease with delusions (3) Dementia in Alzheimer's disease with depression (4) Dementia, vascular, with delusions (5) Dementia, vascular, with depression (6) Impulse control disorder EMILE VELEZ MD Feb 03, 2019 21:33
--- NOTE | 2019-02-04 04:27 | PN ---
DATE: 02/02/2019 PROGRESS NOTE This late entry 02/02/2019 covers elements not covered in my initial note. SUBJECTIVE: I met with the patient evening of 02/02/2019. The patient slept 7-1/2 hours previous night. He remains confused, but has had a better day per nursing staff. He is less wandering, less agitated, cooperative with medications and food. REVIEW OF SYSTEMS: No CV, , pulmonary, eye, ENT system symptoms on review. Reliability poor. MENTAL STATUS EXAM: Oriented to himself. Insight, judgment, recent and remote memory, attention, concentration, fund of knowledge poor, consistent with his diagnosis mentioned in my initial note. PLAN: No change from initial note. Family is planning to transport him to [place], [place] on 02/03/2019. We had suggested secure transportation, but he has been calmer on the unit and we will administer Zyprexa before he leaves p..n. EMILE VELEZ MD DR: ZEUS/citlali JOB#: [id number] / [id number]
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
== END 2019-02-03 09:45 | DRG 57 ==
LOC: ER 13:50 → GEROPSY 15:15
PROVIDERS: ADMIT Psychiatry & Neurology Psychiatry; ATTEND Psychiatry & Neurology Psychiatry
DX: G30.9 Alzheimer's disease, unspecified (principal); R47.01 Aphasia; F01.51 Vascular dementia, unspecified severity, with behavioral disturbance; F02.81 Dementia in other diseases classified elsewhere, unspecified severity, with behavioral disturbance; F63.9 Impulse disorder, unspecified; F41.9 Anxiety disorder, unspecified; F32.9 Major depressive disorder, single episode, unspecified; F07.0 Personality change due to known physiological condition; I10 Essential (primary) hypertension; I48.2 Chronic atrial fibrillation; E78.5 Hyperlipidemia, unspecified; H91.90 Unspecified hearing loss, unspecified ear; I69.398 Other sequelae of cerebral infarction; J44.9 Chronic obstructive pulmonary disease, unspecified; N40.0 Benign prostatic hyperplasia without lower urinary tract symptoms; Z79.01 Long term (current) use of anticoagulants; Z87.891 Personal history of nicotine dependence; Z91.410 Personal history of adult physical and sexual abuse; Z79.899 Other long term (current) drug therapy; Z88.8 Allergy status to other drugs, medicaments and biological substances; Z91.83 Wandering in diseases classified elsewhere
CPT/HCPCS: 36415; 36600; 71045; 80048; 80053; 80061; 80076; 80162; 80164; 80307; 80329; 81001; 82140; 82306; 82803; 83036; 83540; 83550; 83605; 83735; 84436; 84443; 84480; 85007; 85025; 86592; 93005; 94640; 94760; G0480; J1630; J2060; J7613; J7626; Q0163; 82003; 99285-25